=== PATIENT | male | born 1970 | race Caucasian/White ===

== ENCOUNTER 2021-10-21 18:33 | Emergency (ER) | payer OTHER ==
[2021-10-21 19:50] VITALS: TEMP 98.4
[2021-10-21] MEDS ORDERED: ONDANSETRON 4 MG/2 ML VIAL IVP STA (20:24)
[2021-10-21] MEDS ORDERED: SODIUM CHLORIDE 0.9% 1,000 ML IV STA (20:24)
[2021-10-21] MEDS ORDERED: diphenhydrAMINE 50 MG/ML 1 ML VIAL IVP STA (20:27)
--- NOTE | 2021-10-21 23:59 | ED ---
Nausea/Vomiting/Diarrhea HPI - General Chief complaint: Nausea/Vomiting/Diarrhea Stated complaint: Vomiting Time Seen by Provider: 10/21/21 20:23 Source: patient, RN notes reviewed Mode of arrival: EMS Limitations: no limitations - History of Present Illness Initial comments: This is a 51-year-old male who presents to the emergency department for nausea, vomiting, and dehydration. States that he has been at [place] for 5 days. 3 days ago, he started to feel ill. He has felt nauseous and is unable to keep down water. He is in the process of withdrawing from fentanyl, and wonders if this may be a cause. [place] wants to make sure there are no other irregularities contributing to his symptoms. Denies any associated abdominal pain or sick contacts. Denies any fevers, chills, sore throat, cough, dyspnea, chest pain, palpit ations, abdominal pain, diarrhea, back pain, or headaches. MD complaint: nausea, vomiting Onset/Timin -: days(s) Associated Abdominal Pain: No - Related Data Previous Rx's Medication Instructions Recorded Ondansetron Odt [Zofran Odt] 4 mg PO Q8HR PRN #20 tab 10/22/21 Allergies Allergy/AdvReac Type Severity Reaction Status Date / Time sertraline [From Zoloft] AdvReac Rash/Hives Verified 10/21/21 19:50 Review of Systems ROS Statement: Those systems with pertinent positive or pertinent negative responses have been documented in the HPI. ROS Other: All systems not noted in ROS Statement are negative. Past Medical History Past Medical History: No Reported History Past Surgical History: No Surgical Hx Reported Past Psychological History: Anxiety Smoking Status: Current every day smoker Past Alcohol Use History: None Reported Past Drug Use History: Prescription Drug Abuse General Exam Limitations: no limitations General appearance: alert, other (drowsy) Head exam: Present: atraumatic, normocephalic, normal inspection Respiratory exam: Present: normal lung sounds bilaterally. Absent: respiratory distress, wheezes, rales, rhonchi, stridor Cardiovascular Exam: Present: regular rate, normal rhythm, normal heart sounds. Absent: systolic murmur, diastolic murmur, rubs, gallop, clicks Neurological exam: Present: alert, oriented X3, CN II-XII intact Psychiatric exam: Present: normal affect, normal mood Skin exam: Present: warm, dry, intact, normal color. Absent: rash Course Vital Signs 10/21/21 10/22/21 19:47 01:30 Temperature 98.4 F Pulse Rate 94 79 Respiratory 18 20 Rate Blood Pressure 139/87 139/71 O2 Sat by Pulse 98 97 Oximetry Medical Decision Making - Medical Decision Making This is a 51 year old male who presents to the emergency department for nausea and vomiting. Lab work was nonactionable. Nursing staff was unable to establish an IV on the patient due to his dehydration status. He was instead g iven IM Zofran and Benadryl. Patient noted improvement in his nausea and was able to drink water and eat crackers. He did report a headache and was subsequently given Toradol. Patient reports that he feels much better and requests discharge home. Prescription and starter pack for Zofran were pro vided. He was unable to provide a urine sample prior to discharge. Return precautions reviewed in depth, the patient is instructed to return to the emergency department with any new, worsening, or concerning symptoms. Patient verbalized understanding. This case was discussed in detail with the attending ED physician. Presentation, findings, and treatment plan discussed in detail as well. - Lab Data Result diagrams: 10/22/21 01:00 10/21/21 00:37 Lab Results 10/21/21 10/22/21 Range/Units 00:37 01:00 WBC 5.0 (3.8-10.6) k/uL RBC 4.46 (4.30-5.90) m/uL Hgb 13.6 (13.0-17.5) gm/dL Hct 41.2 (39.0-53.0) % MCV 92.5 (80.0-100.0) fL MCH 30.4 (25.0-35.0) pg MCHC 32.9 (31.0-37.0) g/dL RDW 14.1 (11.5-15.5) % Plt Count 247 (150-450) k/uL MPV 7.9 Neutrophils % 63 % Lymphocytes % 27 % Monocytes % 7 % Eosinophils % 2 % Basophils % 1 % Neutrophils # 3.2 (1.3-7.7) k/uL Lymphocytes # 1.3 (1.0-4.8) k/uL Monocytes # 0.3 (0-1.0) k/uL Eosinophils # 0.1 (0-0.7) k/uL Basophils # 0.0 (0-0.2) k/uL Sodium 138 (137-145) mmol/L Potassium 4.3 (3.5-5.1) mmol/L Chloride 98 (98-107) mmol/L Carbon Dioxide 31 H (22-30) mmol/L Anion Gap 9 mmol/L BUN 12 (9-20) mg/dL Creatinine 0.93 (0.66-1.25) mg/dL Est GFR (CKD-EPI)AfAm >90 (>60 ml/min/1.73 sqM) Est GFR (CKD-EPI)NonAf >90 (>60 ml/min/1.73 sqM) Glucose 101 H (74-99) mg/dL Calcium 9.9 (8.4-10.2) mg/dL Total Bilirubin 0.3 (0.2-1.3) mg/dL AST 34 (17-59) U/L ALT 14 (4-49) U/L Alkaline Phosphatase 59 (38-126) U/L Total Protein 7.2 (6.3-8.2) g/dL Albumin 4.4 (3.5-5.0) g/dL Amylase 90 (30-110) U/L Lipase 69 (23-300) U/L Disposition Clinical Impression: Nausea and vomiting, Dehydration Disposition: HOME SELF-CARE Instructions (If sedation given, give patient instructions): Acute Nausea and Vomiting (ED) Additional Instructions: Return to the emergency department with any new, worsening, or concerning symptoms. The Zofran can be taken up to every 8 hours as needed for nausea and vomiting. Make sure that you remain well-hydrated. Slowly advance your diet as tolerated. Prescriptions: Ondansetron Odt [Zofran Odt] 4 mg PO Q8HR PRN #20 tab PRN Reason: Nausea And Vomiting Is patient prescribed a controlled substance at d/c from ED?: No Referrals: Fabian Ortiz MD [Primary Care Provider] - 1-2 days
[2021-10-22 01:15] LABS: Basophils % (A) 1 %; Eosinophils # (A) 0.1 k/uL (0-0.7); Eosinophils % (A) 2 %; HCT 41.2 % (39.0-53.0); HGB 13.6 gm/dL (13.0-17.5); Lymphocytes # (A) 1.3 k/uL (1.0-4.8); Lymphocytes % (A) 27 %; MCH 30.4 pg (25.0-35.0); MCHC 32.9 g/dL (31.0-37.0); MCV 92.5 fL (80.0-100.0); Mean Platelet Volume 7.9; Monocytes # (A) 0.3 k/uL (0-1.0); Monocytes % (A) 7 %; Neutrophils # (A) 3.2 k/uL (1.3-7.7); Neutrophils % (A) 63 %; Platelet Count 247 k/uL (150-450); RBC 4.46 m/uL (4.30-5.90); RDW 14.1 % (11.5-15.5)
[2021-10-22 01:31] LABS: ALT 14 U/L (4-49); AST 34 U/L (17-59); African American GFR (CKD) >90 (>60 ml/min/1.73 sqM); Albumin 4.4 g/dL (3.5-5.0); Alkaline Phosphatase 59 U/L (38-126); Amylase 90 U/L (30-110); Anion Gap 9 mmol/L; Blood Urea Nitrogen 12 mg/dL (9-20); Calcium 9.9 mg/dL (8.4-10.2); Carbon Dioxide 31 mmol/L (22-30); Chloride 98 mmol/L (98-107); Glucose 101 mg/dL (74-99); Lipase 69 U/L (23-300); Non-African American GFR(CKD) >90 (>60 ml/min/1.73 sqM); Potassium 4.3 mmol/L (3.5-5.1); Sodium 138 mmol/L (137-145); Total Bilirubin 0.3 mg/dL (0.2-1.3); Total Protein 7.2 g/dL (6.3-8.2)
[2021-10-22] MEDS ORDERED: KETOROLAC 15 MG/ML 1 ML VIAL IM STA (01:37)
[2021-10-22] MEDS ORDERED: ONDANSETRON 4 MG ODT STARTER PACK 2 TAB BTL PO STA (01:42)
[2021-10-22 02:00] VITALS: BP 139/71; PULSE 79; RESP 20
== END 2021-10-22 02:45 | disposition home or self-care (01) ==
LOC: EC 18:33
DX: E86.0 Dehydration (principal); R11.2 Nausea with vomiting, unspecified; F17.200 Nicotine dependence, unspecified, uncomplicated; Z88.2 Allergy status to sulfonamides
CPT/HCPCS: 36415; 80053; 82150; 83690; 85025; 96372; 96374; 96375; 99284

== ENCOUNTER 2023-04-14 20:17 | Emergency (ER) | payer OTHER ==
[2023-04-14 20:33] VITALS: RESP 18; TEMP 98.4
[2023-04-14] MEDS: KETOROLAC 15 MG/ML 1 ML VIAL IM STA (20:48)
--- NOTE | 2023-04-14 20:49 | ED ---
Extremity Problem HPI - General Chief complaint: Extremity Problem,Nontraumatic Stated complaint: hand pain,swelling Time Seen by Provider: 04/14/23 20:44 Source: patient, RN notes reviewed Mode of arrival: ambulatory Limitations: no limitations - History of Present Illness Initial comments: Patient is a 53-year-old male presented to ER with a chief complaint of right hand pain. Patient states he has been going on for a month and is extremely painful to move. He states that his right third finger is swollen. He has been limiting range of motion due to pain. He has been taking [id number] ibuprofen with mild relief of pain. Denies any history of gout, paresthesias, injury. - Related Data Previous Rx's Medication Instructions Recorded Ondansetron Odt [Zofran Odt] 4 mg PO Q8HR PRN #20 tab 10/22/21 Ketorolac [Toradol] 10 mg PO Q8HR #15 tab 04/14/23 Allergies Allergy/AdvReac Type Severity Reaction Status Date / Time sertraline [From Zoloft] AdvReac Rash/Hives Verified 04/14/23 20:28 Review of Systems ROS Statement: Those systems with pertinent positive or pertinent negative responses have been documented in the HPI. ROS Other: All systems not noted in ROS Statement are negative. Past Medical History Past Medical History: No Reported History Additional Past Medical History / Comment(s): Lyme History of Any Multi-Drug Resistant Organisms: None Reported Past Surgical History: No Surgical Hx Reported Past Psychological History: Anxiety Smoking Status: Current every day smoker Past Alcohol Use History: None Reported Past Drug Use History: Prescription Drug Abuse General Exam Limitations: no limitations General appearance: alert, in no apparent distress Head exam: Present: atraumatic, normocephalic, normal inspection Respiratory exam: Present: normal lung sounds bilaterally. Absent: respiratory distress, wheezes, rales, rhonchi, stridor Cardiovascular Exam: Present: regular rate, normal rhythm, normal heart sounds. Absent: systolic murmur, diastolic murmur, rubs, gallop, clicks Extremities exam: Present: other (Right third digit mildly erythematous with joint tenderness to third MCP joint. Pain elicited with extension of finger. 2+ right radial pulse.) Neurological exam: Present: alert, oriented X3, CN II-XII intact Psychiatric exam: Present: normal affect, normal mood Skin exam: Present: warm, dry, intact, normal color. Absent: rash Course Vital Signs 04/14/23 20:25 Temperature 98.4 F Pulse Rate 88 Respiratory 18 Rate Blood Pressure 151/92 O2 Sat by Pulse 100 Oximetry Medical Decision Making - Medical Decision Making Was pt. sent in by a medical professional or institution (, [facility], COMMUNITY SERVICE TECHNICIAN, urgent care, hospital, or care home...) When possible be specific @ -No Did you speak to anyone other than the patient for history (EMS, parent, family, police, friend...)? What history was obtained from this source @ -No Did you review nursing and triage notes (agree or disagree)? Why? @ -I reviewed and agree with nursing and triage notes Were old charts reviewed (outside hosp., previous admission, EMS record, old EKG, old radiological studies, urgent care reports/EKG's, care home records)? Report findings @ -No old charts were reviewed Differential Diagnosis (chest pain, altered mental status, abdominal pain women, abdominal pain men, vaginal bleeding, weakness, fever, dyspnea, syncope, headache, dizziness, GI bleed, back pain, seizure, CVA, palpatations, mental health, musculoskeletal)? @ -Differential Musculoskeletal Muscular strain, contusion, ligament sprain, fracture, arthritis, septic arthritis, bursitis, cellulitis, muscle spasm, nerve compression, DVT, arterial occlusion, herpes zoster, electrolyte abnormality, tumor.... This is not meant to be in all inclusive list EKG interpreted by me (3pts min.). @ -None X-rays interpreted by me (1pt min.). @ -Right hand x-ray interpreted by me shows no acute process. CT interpreted by me (1pt min.). @ -None done U/S interpreted by me (1pt. min.). @ -None done What testing was considered but not performed or refused? (CT, X-rays, U/S, labs)? Why? @ -None What meds were considered but not given or refused? Why? @ -None Did you discuss the management of the patient with other professionals (pr ofessionals i.e. ARIA Jones, COMMUNITY SERVICE TECHNICIAN, lab, RT, psych nurse, director social welfare, facilities supervisor, teacher, school resource officer, case hardener)? Give summary @ -No Was smoking cessation discussed for >3mins.? @ -No Was critical care preformed (if so, how long)? @ -No Were there social determinants of health that impacted care today? How? (Homelessness, low income, unemployed, alcoholism, drug addiction, transportation, low edu. Level, literacy, decrease access to med. care, [facility] [facility], rehab)? @ -Patient recently released from psychiatric unit. Was there de-escalation of care discussed even if they declined (Discuss DNR or withdrawal of care, Hospice)? DNR status @ -No What co-morbidities impacted this encounter? (DM, HTN, Smoking, COPD, CAD, Cancer, CVA, ARF, Chemo, Hep., AIDS, mental health diagnosis, sleep apnea, mor bid obesity)? @ -None Was patient admitted / discharged? Hospital course, mention meds given and route, prescriptions, significant lab abnormalities, going to OR and other pertinent info. @ -Discharge. Patient is a 53-year-old male presented to ER with a chief complaint of right hand pain. History and physical exam completed. Vitals stable. Patient no signs of acute distress. Right upper extremity neurovascular intact. Full active range of motion. Denies any injuries or trauma. X-rays obtained negative for acute process. Patient received IM Toradol for pain control in the ER. Results discussed with patient, all questions answered. Advised him to follow-up with orthopedics. Referral given. Patient prescribed p.o. Toradol. Return parameters were discussed. Patient be discharged stable condition with follow-up to orthopedics. Patient expressed understanding and agreement with care plan. Undiagnosed new problem with uncertain prognosis? @ -No Drug Therapy requiring intensive monitoring for toxicity (Heparin, Nitro, Insulin, Cardizem)? @ -No Were any procedures done? @ -No Diagnosis/symptom? @ -Right hand pain Acute, or Chronic, or Acute on Chronic? @ -Acute Uncomplicated (without systemic symptoms) or Complicated (systemic symptoms)? @ -Uncomplicated Side effects of treatment? @ -No Exacerbation, Progression, or Severe Exacerbation? @ -No Poses a threat to life or bodily function? How? (Chest pain, [place], [place], pneumonia, PE, COPD, DKA, ARF, appy, cholecystitis, CVA, Diverticulitis, Homicidal, Suicidal, threat to staff... and all critical care pts) @ -No - Radiology Data Radiology results: report reviewed, image reviewed Disposition Clinical Impression: Right hand pain Disposition: HOME SELF-CARE Condition: Stable Additional Instructions: Please follow-up with orthopedics in the next 1 to 2 days. Return to the ER for any new or worsening symptoms. Prescriptions: Ketorolac [Toradol] 10 mg PO Q8HR #15 tab Is patient prescribed a controlled substance at d/c from ED?: No Referrals: None,Stated [Primary Care Provider] - 1-2 days Sarwat Durant DO [Doctor of Osteopathic Medicine] - 1-2 days Time of Disposition: 21:16
--- NOTE | 2023-04-14 21:15 | XR ---
EXAMINATION TYPE: XR hand complete RT DATE OF EXAM: 04/14/2023 8:55 PM CLINICAL INDICATION:Male, 53 years old with history of third digit pain; [facility] COMPARISON: None TECHNIQUE: XR hand complete RT Frontal, lateral and oblique views were obtained. FINDINGS: Normal alignment of the visualized joints. No acute osseous pathology is identified. No e vidence of soft tissue swelling. IMPRESSION: No acute osseous pathology.
[2023-04-14 22:03] VITALS: BP 131/80; PULSE 75
== END 2023-04-14 21:26 | disposition home or self-care (01) ==
LOC: EC 20:17
DX: M79.641 Pain in right hand (principal); F17.200 Nicotine dependence, unspecified, uncomplicated; Z88.8 Allergy status to other drugs, medicaments and biological substances; Z86.59 Personal history of other mental and behavioral disorders
CPT/HCPCS: 73130; 99283; 96372; J1885

== ENCOUNTER 2023-04-28 08:58 | Emergency (ER) | payer OTHER ==
--- NOTE | 2023-04-28 09:09 | ED ---
Lower Extremity Injury HPI - General Chief Complaint: Extremity Injury, Lower Stated Complaint: Knee Pain Time Seen by Provider: 04/28/23 09:08 Source: patient, RN notes reviewed Mode of arrival: wheelchair Limitations: no limitations - History of Present Illness Initial Comments: 53-year-old male to ED with chief complaint of right knee pain. Patient states that his right knee has been bothering him over the last 3 to 4 days, but states this morning he was outside at work where he stepped on a curb and felt a "popping sensation". Denies numbness, tingling, trauma to the knee. Patient denies previous surgical history on knee. Has taken Motrin at home over the last few days, last dose yesterday evening. Patient denies overlying redness to the affected knee. - Related Data Previous Rx's Medication Instructions Recorded Ondansetron Odt [Zofran Odt] 4 mg PO Q8HR PRN #20 tab 10/22/21 Ketorolac [Toradol] 10 mg PO Q8HR #15 tab 04/14/23 Allergies Allergy/AdvReac Type Severity Reaction Status Date / Time sertraline [From Zoloft] AdvReac Rash/Hives Verified 04/28/23 09:06 Review of Systems ROS Statement: Those systems with pertinent positive or pertinent negative responses have been documented in the HPI. ROS Other: All systems not noted in ROS Statement are negative. Past Medical History Past Medical History: No Reported History Additional Past Medical History / Comment(s): Lyme History of Any Multi-Drug Resistant Organisms: None Reported Past Surgical History: No Surgical Hx Reported Past Psychological History: Anxiety Smoking Status: Current every day smoker, [place] Past Alcohol Use History: None Reported Past Drug Use History: Prescription Drug Abuse General Exam Limitations: no limitations General appearance: alert, in no apparent distress Head exam: Present: atraumatic, normocephalic, normal inspection Eye exam: Present: normal appearance, PERRL, EOMI. Absent: scleral icterus, conjunctival injection, periorbital swelling ENT exam: Present: normal exam, mucous membranes moist Neck exam: Present: normal inspection. Absent: tenderness, meningismus, lymphadenopathy Respiratory exam: Present: normal lung sounds bilaterally. Absent: respiratory distress, wheezes, rales, rhonchi, stridor Cardiovascular Exam: Present: regular rate, normal rhythm, normal heart sounds. Absent: systolic murmur, diastolic murmur, rubs, gallop, clicks GI/Abdominal exam: Present: soft, normal bowel sounds. Absent: distended, tenderness, guarding, rebound, rigid Extremities exam: Present: tenderness (medial and lateral right knee) Right Hip exam: Present: normal inspection Upper Leg exam: Present: normal inspection, full ROM Knee exam: Present: full ROM (pain with knee extension), tenderness, swelling, ecchymosis, crepitus, effusion, pain/laxity with valgus, pain/laxity with varus. Absent: abrasion, laceration, erythema, posterior draw sign Neurovascular tendon exam: Present: no vascular compromise. Absent: pulse deficit, abnormal cap refill, motor deficit, sensory deficit Back exam: Present: normal inspection Neurological exam: Present: alert, oriented X3, CN II-XII intact Psychiatric exam: Present: normal affect, normal mood Skin exam: Present: warm, dry, intact, normal color. Absent: rash Course Vital Signs 04/28/23 09:03 Temperature 97.9 F Pulse Rate 84 Respiratory 18 Rate Blood Pressure 129/69 O2 Sat by Pulse 98 Oximetry Procedures - Orthopedic Splinting/Casting Injury #1 Side: right Lower Extremity Injury Location: knee Lower Extremity Immobilizer: knee immobilizer Medical Decision Making - Medical Decision Making Was pt. sent in by a medical professional or institution (ARIA Jones, B2B OUTSIDE SALES REPRESENTATIVE, urgent care, hospital, or usp...) When possible be specific @ -No Did you speak to anyone other than the patient for history (EMS, parent, family, police, friend...)? What history was obtained from this source @ -No Did you review nursing and triage notes (agree or disagree)? Why? @ -I reviewed and agree with nursing and triage notes Were old charts reviewed (outside hosp., previous admission, EMS record, old EKG, old radiological studies, urgent care reports/EKG's, usp records)? Report findings @ -No old charts were reviewed Differential Diagnosis (chest pain, altered mental status, abdominal pain women, abdominal pain men, vaginal bleeding, weakness, fever, dyspnea, syncope, headache, dizziness, GI bleed, back pain, seizure, CVA, palpatations, mental health, musculoskeletal)? @ -Differential Musculoskeletal Muscular strain, contusion, ligament sprain, fracture, arthritis, septic arthritis, bursitis, cellulitis, muscle spasm, nerve compression, DVT, arterial occlusion, herpes zoster, electrolyte abnormality, tumor.... This is not meant to be in all inclusive list EKG interpreted by me (3pts min.). @ -None X-rays interpreted by me (1pt min.). @ -X-ray of right knee reveals anterior soft tissue swelling with no acute osseous abnormality seen. CT interpreted by me (1pt min.). @ -None done U/S interpreted by me (1pt. min.). @ -None done What testing was considered but not performed or refused? (CT, X-rays, U/S, labs)? Why? @ -None What meds were considered but not given or refused? Why? @ -None Did you discuss the management of the patient with other professionals (professionals i.e. , PA, B2B OUTSIDE SALES REPRESENTATIVE, lab, RT, psych nurse, social media marketing analyst, city planning teacher, teacher, ict help desk officer, rn case mgr)? Give summary @ -No Was smoking cessation discussed for >3mins.? @ -No Was critical care preformed (if so, how long)? @ -No Were there social determinants of health that impacted care today? How? (Homelessness, low income, unemployed, alcoholism, drug addiction, transportation, low edu. Level, literacy, decrease access to med. care, senior care, rehab)? @ -No Was there de-escalation of care discussed even if they declined (Discuss DNR or withdrawal of care, Hospice)? DNR status @ -No What co-morbidities impacted this encounter? (DM, HTN, Smoking, COPD, CAD, Cancer, CVA, ARF, Chemo, Hep., AIDS, mental health diagnosis, sleep apnea, morbid obesity)? @ -None Was patient admitted / discharged? Hospital course, mention meds given and route, prescriptions, significant lab abnormalities, going to OR and other pertinent info. @ -Discharged. 53-year-old male presents to Emergency Department with a chief c omplaint of right knee pain. Patient's pain has improved since administration of IM Toradol. Right knee x-ray reveals no acute osseous abnormality, soft tissue swelling. Patient placed in knee immobilizer given orthopedic referral for further evaluation. Continue with symptomatic treatment at home cycling Tylenol Motrin, elevate affected knee, rest, ice. Undiagnosed new problem with uncertain prognosis? @ -No Drug Therapy requiring intensive monitoring for toxicity (Heparin, Nitro, Insulin, Cardizem)? @ -No Were any procedures done? @ -No Diagnosis/symptom? @ -Knee sprain Acute, or Chronic, or Acute on Chronic? @ -Acute Uncomplicated (without systemic symptoms) or Complicated (systemic symptoms)? @ -Uncomplicated Side effects of treatment? @ -No Exacerbation, Progression, or Severe Exacerbation? @ -No Poses a threat to life or bodily function? How? (Chest pain, [place], [place], pneumonia, PE, COPD, DKA, ARF, appy, cholecystitis, CVA, Diverticulitis, Homicidal, Suicidal, threat to staff... and all critical care pts) @ -No Disposition Clinical Impression: Knee sprain Narrative: Please return to the Emergency Department if symptoms worsen or any other concerns. Advice patient to schedule follow-up appointment with orthopedics on Sunday. Disposition: HOME SELF-CARE Condition: Good Instructions (If sedation given, give patient instructions): Knee Sprain (ED) Is patient prescribed a controlled substance at d/c from ED?: No Referrals: None,Stated [Primary Care Provider] - 1-2 days Julián Arredondo DO [Doctor of Osteopathic Medicine] - 1-2 days Time of Disposition: 10:15
[2023-04-28 09:10] VITALS: BP 129/69; PULSE 84; RESP 18; TEMP 97.9
[2023-04-28] MEDS: KETOROLAC 15 MG/ML 1 ML VIAL IM STA (09:21)
--- NOTE | 2023-04-28 09:51 | XR ---
EXAMINATION TYPE: XR knee complete RT DATE OF EXAM: 04/28/2023 COMPARISON: NONE HISTORY: 53-year-old male swelling and pain after twisting injury TECHNIQUE: 3 views FINDINGS: Mild anterior soft tissue swelling. No sizable joint effusion is seen. No acute fracture, s ubluxation, dislocation. IMPRESSION: Anterior soft tissue swelling. No acute osseous abnormality seen. If symptoms persist, consider MRI.
== END 2023-04-28 10:17 | disposition home or self-care (01) ==
LOC: EC 08:58
DX: S83.91XA Sprain of unspecified site of right knee, initial encounter (principal); F17.290 Nicotine dependence, other tobacco product, uncomplicated; F19.10 Other psychoactive substance abuse, uncomplicated; Z88.8 Allergy status to other drugs, medicaments and biological substances; X50.1XXA Overexertion from prolonged static or awkward postures, initial encounter; Y99.0 Civilian activity done for income or pay
CPT/HCPCS: 73562; 99283; 96372; L1830; J1885

== ENCOUNTER 2023-05-05 21:15 | Emergency (ER) | payer OTHER ==
[2023-05-05 21:39] VITALS: BP 140/90; PULSE 101; RESP 18; TEMP 98.2
--- NOTE | 2023-05-05 21:52 | US ---
EXAMINATION TYPE: US venous doppler duplex LE RT DATE OF EXAM: 05/05/2023 9:48 PM COMPARISON: NONE CLINICAL INDICATION: Male, 53 years old with history of swelling, calf pain; right calf edema SIDE PERFORMED: right TECHNIQUE: The lower extremity deep venous system is examined utilizing real time linear array sonog elver with graded compression, doppler sonography and color-flow sonography. VESSELS IMAGED: Common Femoral Vein Deep Femoral Vein Greater Saphenous Vein * Femoral Vein Popliteal Vein Small Saphenous Vein * Proximal Calf Veins (* superficial vessels) Right Leg: No evidence of DVT IMPRESSION: Grayscale, color doppler, spectral doppler imaging performed of the deep veins of the lo wer extremities. There is normal flow, compressibility, vascular waveforms.
--- NOTE | 2023-05-05 22:21 | ED ---
Lower Extremity Injury HPI - General Chief Complaint: Extremity Injury, Lower Stated Complaint: Right calf swelling Time Seen by Provider: 05/05/23 21:21 Source: patient Mode of arrival: ambulatory Limitations: no limitations - History of Present Illness Initial Comments: 53-year-old male presenting with chief complaint of right-sided calf pain and swelling. Patient was here on 04/27 with knee pain, he had x-rays which were negative. He was instructed to follow-up with orthopedics. He states orthopedics did not take his insurance but he did follow-up with his PCP and is currently wearing a flexible knee brace. He states that he has been having some swelling and pain in the calf to the right lower extremity. No chest pain or difficulty breathing. No new injury or trauma. No numbness or tingling. - Related Data Previous Rx's Medication Instructions Recorded Ondansetron Odt [Zofran Odt] 4 mg PO Q8HR PRN #20 tab 10/22/21 Ketorolac [Toradol] 10 mg PO Q8HR #15 tab 04/14/23 Allergies Allergy/AdvReac Type Severity Reaction Status Date / Time sertraline [From Zoloft] AdvReac Rash/Hives Verified 04/28/23 09:06 Review of Systems ROS Statement: Those systems with pertinent positive or pertinent negative responses have been documented in the HPI. ROS Other: All systems not noted in ROS Statement are negative. Past Medical History Past Medical History: No Reported History Additional Past Medical History / Comment(s): Lyme History of Any Multi-Drug Resistant Organisms: None Reported Past Surgical History: No Surgical Hx Reported Past Psychological History: Anxiety Smoking Status: Current every day smoker, Vaper Past Alcohol Use History: None Reported Past Drug Use History: Prescription Drug Abuse General Exam Limitations: no limitations General appearance: alert, in no apparent distress Head exam: Present: atraumatic, normocephalic Eye exam: Present: normal appearance Neck exam: Present: normal inspection Respiratory exam: Absent: respiratory distress Right Lower Leg exam: Present: tenderness, swelling. Absent: erythema Neurological exam: Present: alert, oriented X3 Psychiatric exam: Present: normal affect, normal mood Skin exam: Present: warm, dry Course Vital Signs 05/05/23 21:16 Temperature 98.2 F Pulse Rate 101 H Respiratory 18 Rate Blood Pressure 140/90 O2 Sat by Pulse 100 Oximetry Medical Decision Making - Medical Decision Making Was pt. sent in by a medical professional or institution (, PA, CARDIOVASCULAR SURGICAL TECH, urgent care, hospital, or detention...) When possible be specific @ -No Did you speak to anyone other than the patient for history (EMS, parent, family, police, friend...)? What history was obtained from this source @ -No Did you review nursing and triage notes (agree or disagree)? Why? @ -I reviewed and agree with nursing and triage notes Were old charts reviewed (outside hosp., previous admission, EMS record, old EKG, old radiological studies, urgent care reports/EKG's, detention records)? Report findings @ -No old charts were reviewed Differential Diagnosis (chest pain, altered mental status, abdominal pain women, abdominal pain men, vaginal bleeding, weakness, fever, dyspnea, syncope, headache, dizziness, GI bleed, back pain, seizure, CVA, palpatations, mental health, musculoskeletal)? @ -Differential Musculoskeletal Muscular strain, contusion, ligament sprain, fracture, arthritis, septic arthritis, bursitis, cellulitis, muscle spasm, nerve compression, DVT, arterial occlusion, herpes zoster, electrolyte abnormality, tumor.... This is not meant to be in all inclusive list EKG interpreted by me (3pts min.). @ -As above X-rays interpreted by me (1pt min.). @ -None done CT interpreted by me (1pt min.). @ -None done U/S interpreted by me (1pt. min.). @ -Ultrasound is negative for DVT What testing was considered but not performed or refused? (CT, X-rays, U/S, labs)? Why? @ -None What meds were considered but not given or refused? Why? @ -None Did you discuss the management of the patient with other professionals (professionals i.e. , PA, CARDIOVASCULAR SURGICAL TECH, lab, RT, psych nurse, manager social media, divorce lawyer, teacher, chief accounting officer, case folder)? Give summary @ -No Was smoking cessation discussed for >3mins.? @ -No Was critical care preformed (if so, how long)? @ -No Were there social determinants of health that impacted care today? How? (Homelessness, low income, unemployed, alcoholism, drug addiction, transportati on, low edu. Level, literacy, decrease access to med. care, [facility], rehab)? @ -No Was there de-escalation of care discussed even if they declined (Discuss DNR or withdrawal of care, Hospice)? DNR status @ -No What co-morbidities impacted this encounter? (DM, HTN, Smoking, COPD, CAD, Cancer, CVA, ARF, Chemo, Hep., AIDS, mental health diagnosis, sleep apnea, morbid obesity)? @ -None Was patient admitted / discharged? Hospital course, mention meds given and route, prescriptions, significant lab abnormalities, going to OR and other pertinent info. @ -53-year-old male presenting with chief complaint of right lower leg swelling and pain. He recently injured his knee and has been wearing a Velcro knee brace. On exam I noticed when the patient removed his knee brace that he does appear to be tightening it quite a bit at the level of the lower leg. He is neurovascularly intact. Ultrasound was obtained which is negative for DVT. I suspect that the patient is having swelling due to his Velcro knee brace. I educated him on today's findings and on supportive management at home. Provided him with orthopedic follow-up for his knee pain. Discharged home. Follow-up with PCP. Report back to ER with any new or worsening symptoms. Discussed return parameters and answered all questions. Patient conveyed verbal understanding and agreed to the plan. I discussed this case in detail with my attending Dr. Rosenbaum Undiagnosed new problem with uncertain prognosis? @ -No Drug Therapy requiring intensive monitoring for toxicity (Heparin, Nitro, Insulin, Cardizem)? @ -No Were any procedures done? @ -No Diagnosis/symptom? @ -Lower extremity swelling Acute, or Chronic, or Acute on Chronic? @ -Acute Uncomplicated (without systemic symptoms) or Complicated (systemic symptoms)? @ -Uncomplicated Side effects of treatment? @ -No Exacerbation, Progression, or Severe Exacerbation? @ -No Poses a threat to life or bodily function? How? (Chest pain, [place], [place], pneumonia, PE, COPD, DKA, ARF, appy, cholecystitis, CVA, Diverticulitis, Homicidal, Suicidal, threat to staff... and all critical care pts) @ -No Disposition Clinical Impression: Leg swelling Disposition: HOME SELF-CARE Condition: Good Instructions (If sedation given, give patient instructions): Leg Edema (ED), Knee Pain (ED) Additional Instructions: Follow-up with PCP and orthopedics. Report back to ER with any new or worsening symptoms. Alternate Motrin and Tylenol as needed for pain control. Elevate the leg to help reduce swelling. You may wear compression stockings as needed. Is patient prescribed a controlled substance at d/c from ED?: No Referrals: Caden Villafuerte MD [Primary Care Provider] - 1-2 days Jun Hurt DO [Doctor of Osteopathic Medicine] - 1-2 days Rose Mary Reyna DO [Doctor of Osteopathic Medicine] - 1-2 days Time of Disposition: 22:20
== END 2023-05-05 22:27 | disposition home or self-care (01) ==
LOC: EC 21:15
DX: M79.604 Pain in right leg (principal); F17.290 Nicotine dependence, other tobacco product, uncomplicated; Z88.8 Allergy status to other drugs, medicaments and biological substances; Z86.59 Personal history of other mental and behavioral disorders
CPT/HCPCS: 99283

== ENCOUNTER 2023-06-06 11:34 | Emergency (ER) | payer OTHER ==
[2023-06-06] MEDS: BACITRACIN OINT 1 EACH PACKET TOPICAL ONE (12:31)
--- NOTE | 2023-06-06 12:38 | ED ---
Recheck HPI - General Chief Complaint: Recheck/Abnormal Lab/Rx Stated Complaint: R Leg Injury Time Seen by Provider: 06/06/23 11:54 Source: patient, RN notes reviewed Mode of arrival: ambulatory Limitations: no limitations - History of Present Illness Initial Comments: 53-year-old male presenting to the ER with a chief complaint of right knee pain. Patient reports he is scheduled for an MRI on 06-08-2023, evaluation of meniscal injury. He reports he has been wearing a brace that has been too big. He states at work today he was having extreme posterior knee pain as the brace was rubbing against his skin. He states it is "bleeding". Denies any paresthesias or weakness. No other complaints at this time. - Related Data Previous Rx's Medication Instructions Recorded Ondansetron Odt [Zofran Odt] 4 mg PO Q8HR PRN #20 tab 10/22/21 Ketorolac [Toradol] 10 mg PO Q8HR #15 tab 04/14/23 Allergies Allergy/AdvReac Type Severity Reaction Status Date / Time sertraline [From Zoloft] AdvReac Rash/Hives Verified 06/06/23 12:31 Review of Systems ROS Statement: Those systems with pertinent positive or pertinent negative responses have been documented in the HPI. ROS Other: All systems not noted in ROS Statement are negative. Past Medical History Past Medical History: No Reported History Additional Past Medical History / Comment(s): Lyme, cellulitis History of Any Multi-Drug Resistant Organisms: None Reported Past Surgical History: No Surgical Hx Reported, Back Surgery Additional Past Surgical History / Comment(s): Right leg phlebectomy. Back abscess and surgery with 6 bolts, 2 titanium cages, and 2 plastic discs in 2019 Past Psychological History: Anxiety, Depression Smoking Status: Current every day smoker, Vaper Past Alcohol Use History: None Reported Past Drug Use History: Prescription Drug Abuse General Exam General appearance: alert, in no apparent distress Head exam: Present: atraumatic, normocephalic, normal inspection Respiratory exam: Present: normal lung sounds bilaterally. Absent: respiratory distress, wheezes, rales, rhonchi, stridor Cardiovascular Exam: Present: regular rate, normal rhythm, normal heart sounds. Absent: systolic murmur, diastolic murmur, rubs, gallop, clicks Extremities exam: Present: tenderness (Right knee PD. 2+ right dorsalis pedis pulse. Sensation intact. Patient has minor abrasion and ecchymosis to posterior right knee. No active bleeding.) Psychiatric exam: Present: normal affect, normal mood Course Vital Signs 06/06/23 12:25 Temperature 98.1 F Pulse Rate 83 Respiratory 18 Rate Blood Pressure 134/87 O2 Sat by Pulse 98 Oximetry Medical Decision Making - Medical Decision Making Was pt. sent in by a medical professional or institution (, [facility], MAKEUP ARTISTRY INSTRUCTOR, urgent care, hospital, or correction...) When possible be specific @ -No Did you speak to anyone other than the patient for history (EMS, parent, family, police, friend...)? What history was obtained from this source @ -No Did you review nursing and triage notes (agree or disagree)? Why? @ -I reviewed and agree with nursing and triage notes Were old charts reviewed (outside hosp., previous admission, EMS record, old EKG, old radiological studies, urgent care reports/EKG's, correction records)? Report findings @ -No old charts were reviewed Differential Diagnosis (chest pain, altered mental status, abdominal pain women, abdominal pain men, vaginal bleeding, weakness, fever, dyspnea, syncope, headache, dizziness, GI bleed, back pain, seizure, CVA, palpatations, mental health, musculoskeletal)? @ -Differential Musculoskeletal: Muscular strain, contusion, ligament sprain, fracture, arthritis, septic arthritis, bursitis, cellulitis, muscle spasm, nerve compression, DVT, arterial occlusion, herpes zoster, electrolyte abnormality, tumor.... This is not meant to be in all inclusive list EKG interpreted by me (3pts min.). @ -None X-rays interpreted by me (1pt min.). @ -None done CT interpreted by me (1pt min.). @ -None done U/S interpreted by me (1pt. min.). @ -None done What testing was considered but not performed or refused? (CT, X-rays, U/S, labs)? Why? @ -None What meds were considered but not given or refused? Why? @ -None Did you discuss the management of the patient with other professionals (professionals i.e. , ARIA, MAKEUP ARTISTRY INSTRUCTOR, lab, RT, psych nurse, drug abuse social worker, test engine mechanic, teacher, artillery officer, family independence case manager)? Give summary @ -No Was smoking cessation discussed for >3mins.? @ -I discussed smoking cessation for greater than 3 minutes. The risk of smoking were discussed with the patient including but not limited to risks of cancer, stroke, coronary artery disease and COPD. Also discussed with patient w ere multiple methods of quitting smoking. Lastly we discussed the financial cost of smoking. Was critical care preformed (if so, how long)? @ -No Were there social determinants of health that impacted care today? How? (Homelessness, low income, unemployed, alcoholism, drug addiction, transportation, low edu. Level, literacy, decrease access to med. care, retirement, rehab)? @ -No Was there de-escalation of care discussed even if they declined (Discuss DNR or withdrawal of care, Hospice)? DNR status @ -No What co-morbidities impacted this encounter? (DM, HTN, Smoking, COPD, CAD, Cancer, CVA, ARF, Chemo, Hep., AIDS, mental health diagnosis, sleep apnea, morbid obesity)? @ -None Was patient admitted / discharged? Hospital course, mention meds given and route, prescriptions, significant lab abnormalities, going to OR and other pertinent info. @ -Discharged. 53-year-old male presenting to the ER with chief complaint of right posterior knee pain. History and physical exam completed. Vitals stable. Patient in no signs of acute distress and nontoxic-appearing. Right lower extremity neurovascular intact. Minor abrasion and contusion to posterior right knee. Bacitracin placed over abrasion and stockinette given. I advised follow- up on Sunday as scheduled with orthopedics. Return parameters discussed. Patient discharged in stable condition with follow-up to orthopedics. Patient verbally expressed understanding and agreement with care plan. Case discussed with ED attending, Dr. Scanlon. Undiagnosed new problem with uncertain prognosis? @ -No Drug Therapy requiring intensive monitoring for toxicity (Heparin, Nitro, Insulin, Cardizem)? @ -No Were any procedures done? @ -No Diagnosis/symptom? @ -Abrasion/contusion Acute, or Chronic, or Acute on Chronic? @ -Acute Uncomplicated (without systemic symptoms) or Complicated (systemic symptoms)? @ -Uncomplicated Side effects of treatment? @ -No Exacerbation, Progression, or Severe Exacerbation? @ -No Poses a threat to life or bodily function? How? (Chest pain, [place], [place], pneumonia, PE, COPD, DKA, ARF, appy, cholecystitis, CVA, Diverticulitis, Homicidal, Suicidal, threat to staff... and all critical care pts) @ -No Disposition Clinical Impression: Contusion, Abrasion Disposition: HOME SELF-CARE Condition: Stable Additional Instructions: Follow-up with orthopedics as scheduled. Return to the ER for any new or worsening concerns. Is patient prescribed a controlled substance at d/c from ED?: No Referrals: Caden Villafuerte MD [Primary Care Provider] - 1-2 days Time of Disposition: 12:37
[2023-06-06 12:44] VITALS: BP 134/87; PULSE 83; RESP 18; TEMP 98.1
== END 2023-06-06 12:57 | disposition home or self-care (01) ==
LOC: EC 11:34
DX: S80.01XA Contusion of right knee, initial encounter (principal); F17.290 Nicotine dependence, other tobacco product, uncomplicated; Z88.8 Allergy status to other drugs, medicaments and biological substances; X58.XXXA Exposure to other specified factors, initial encounter
CPT/HCPCS: 99283; 99406

== ENCOUNTER 2023-06-17 12:28 | Inpatient (IN) | payer OTHER ==
[2023-06-17 13:00] LABS: Glucose,Whole Blood 110 mg/dL (70-110)
[2023-06-17] MEDS: levETIRAcetam IV 500 MG/5 ML VIAL IVP STA (13:02)
[2023-06-17] MEDS: SODIUM CHLORIDE 0.9% 1,000 ML IV STA (13:02)
--- NOTE | 2023-06-17 13:05 | ED ---
General Adult HPI - General Chief complaint: Altered Mental Status Stated complaint: Syncope Time Seen by Provider: 06/17/23 12:41 Source: patient, EMS, RN notes reviewed, old records reviewed Mode of arrival: ambulatory Limitations: no limitations, altered mental status - History of Present Illness Initial comments: Patient is a 53-year-old male who presents emergency department for altered mentation. Patient was found down in the basement at his [facility] prior to arrival. He has a small laceration to his right cheek. He does not remember how he got there. Was brought here for further evaluation. Patient is a poor historian overall. Denies any chest pain or shortness of breath. Does feel weak on the left side. States he thinks he has a history of strokes but cannot recall. Denies being on any known blood thinners. Denies chest pain or shortness of breath or abdominal pain. Patient is tearful and upset. Presents for further evaluation at this time. Originally evaluated by the midlevel provider and I assumed care when there was concern that it may be a code stroke.Last known well was at was at 2:30 AM when checked into his [facility]/sober house.Patient states he thinks he may have a seizure disorder but cannot recall. - Related Data Home Medications Medication Instructions Recorded Confirmed Atomoxetine HCl [Strattera] 40 mg PO DAILY 06/17/23 06/17/23 DULoxetine HCL [Cymbalta] 60 mg PO DAILY 06/17/23 06/17/23 Ibuprofen [Motrin] 800 mg PO QID PRN 06/17/23 06/17/23 traZODone HCL [Trazodone HCl] 300 mg PO HS 06/17/23 06/17/23 Allergies Allergy/AdvReac Type Severity Reaction Status Date / Time sertraline [From Zoloft] AdvReac Rash/Hives Verified 06/17/23 12:38 Review of Systems ROS Statement: Those systems with pertinent positive or pertinent negative responses have been documented in the HPI. Review of Systems: CONST: Denies fever EYES: Denies blurry vision ENT: Denies nasal congestion C/V: Denies Chest pain RESP: Denies shortness of breath GI: Denies abdominal pain : Denies dysuria SKIN: Denies rash. MSK: Denies joint pain. NEURO: Endorses left-sided weakness ROS Other: All systems not noted in ROS Statement are negative. Past Medical History Past Medical History: No Reported History Additional Past Medical History / Comment(s): Lyme, cellulitis History of Any Multi-Drug Resistant Organisms: None Reported Past Surgical History: No Surgical Hx Reported, Back Surgery Additional Past Surgical History / Comment(s): Right leg phlebectomy. Back abscess and surgery with 6 bolts, 2 titanium cages, and 2 plastic discs in 2019 Past Psychological History: Anxiety, Depression Smoking Status: Current every day smoker, Vaper Past Alcohol Use History: None Reported Past Drug Use History: Prescription Drug Abuse General Exam - General Exam Comments Initial Comments: General: Appears anxious HEAD: Normal with no signs of head trauma. EYES: PERRLA, EOMI, conjunctiva normal, no discharge. Pupils are 3 mm and equal bilaterally. ENT: Hearing grossly intact, normal oropharynx. RESPIRATORY: Clear breath sounds bilaterally. No wheezes, rales, or rhonchi. C/V: Regular rate and rhythm. S1 and S2 auscultated, no edema, peripheral pulses 2+ and intact throughout ABD: Abd is soft, nontender, nondistended EXT: Normal range of motion, no obvious deformity SKIN: No rashes or lesions observed on exposed skin. NEURO: Alert and oriented x 4. GCS of 15. NIH is 5. Patient receives 1 point for left upper extremity weakness, 2 points for left lower extremity weakness, 1 point for left lower extremity ataxia, and 1 point for mild decrease sensation to light touch on the left side. Limitations: no limitations, altered mental status Course Vital Signs 06/17/23 06/17/23 06/17/23 12:33 13:23 14:00 Temperature 97.7 F Pulse Rate 96 77 84 Respiratory 16 16 16 Rate Blood Pressure 140/96 136/82 140/85 O2 Sat by Pulse 99 97 99 Oximetry 06/17/23 17:00 Temperature Pulse Rate 90 Respiratory 16 Rate Blood Pressure 127/89 O2 Sat by Pulse 96 Oximetry Medical Decision Making - Medical Decision Making Was pt. sent in by a medical professional or institution ([facility], [employer], urgent care, hospital, or alf...) When possible be specific @ -Sent from his sober house [facility] for evaluation for altered mentation. Did you speak to anyone other than the patient for history (EMS, parent, family, police, friend...)? What history was obtained from this source @ -No Did you review nursing and triage notes (agree or disagree)? Why? @ -I reviewed and agree with nursing and triage notes Were old charts reviewed (outside hosp., previous admission, EMS record, old EKG, old radiological studies, urgent care reports/EKG's, alf records)? Report findings @ -Old charts reviewed Differential Diagnosis (chest pain, altered mental status, abdominal pain women, abdominal pain men, vaginal bleeding, weakness, fever, dyspnea, syncope, headache, dizziness, GI bleed, back pain, seizure, CVA, palpatations, mental health, musculoskeletal)? @ -Differential CVA Ischemic stroke, hemorrhagic stroke, brain tumor, atypical migraine, Wernicke's encephalopathy, seizure, multiple sclerosis, meningitis, encephalitis, hypoglycemia, Guillain-Tavera, electrolytes disturbance, myasthenia gravis.... This is not meant to be an all-inclusive list Differential Altered Mental Status: Hypoglycemia, DKA, hypercapnia, ETOH, overdose, CO poisoning, trauma, myxedema coma, HTN encephalopathy, infection, encephalitis, psychosis, intercranial hemorrhage, hepatic encephalopathy, meningitis, CVA, this is not meant to be an all-inclusive list EKG interpreted by me (3pts min.). @ -As above X-rays interpreted by me (1pt min.). @ -Chest x-ray reveals no obvious acute cardiopulmonary process. Radiology does see airspace opacities in the right lung base however patient is asymptomatic. Will continue to monitor. CT interpreted by me (1pt min.). @ -CT brain, CT C-spine, CT angiogram of the head and neck negative for any obvious acute intracranial process or injury. No obvious large vessel occlusion. U/S interpreted by me (1pt. min.). @ -None done What testing was considered but not performed or refused? (CT, X-rays, U/S, labs)? Why? @ -None What meds were considered but not given or refused? Why? @ -None Did you discuss the management of the patient with other professionals (professionals i.e. , PA, EDGE POLISHER, lab, RT, psych nurse, social services counselor, senior design engineering specialist, teacher, licensed mortgage loan officer, manager of case)? Give summary @ -Discussed with Dr. White of [facility] who was in agreement with plan for workup. Updated Dr. White following results of imaging and he reviewed them. Was in agreement with plan for aspirin and medical management at this time. Spoke with the admitting physician Dr. Villafuerte who accepted the admission. Was smoking cessation discussed for >3mins.? @ -No Was critical care preformed (if so, how long)? @ -Yes, 34 minutes. Were there social determinants of health that impacted care today? How? (Homelessness, low income, unemployed, alcoholism, drug addiction, transportation, low edu. Level, literacy, decrease access to med. care, residential, rehab)? @ -No Was there de-escalation of care discussed even if they declined (Discuss DNR or withdrawal of care, Hospice)? DNR status @ -No What co-morbidities impacted this encounter? (DM, HTN, Smoking, COPD, CAD, Cancer, CVA, ARF, Chemo, Hep., AIDS, mental health diagnosis, sleep apnea, morbid obesity)? @ -None Was patient admitted / discharged? Hospital course, mention meds given and route, prescriptions, significant lab abnormalities, going to OR and other pertinent info. @ -Based on patient's presentation and physical exam, was brought here for altered mentation. Last known well was at 2:30 AM. It is nearly 1 PM. Checked into a sober house at 2:30 AM. Was found down in the basement by staff prior to arrival. Seemed confused. Upon arrival, initial workup for altered mentation revealed that he does have more localized left-sided deficits. Unknown if he has a history of stroke or not. Patient states he may have a history of seizures. He is a poor historian at this time and is conversationally confused but alert and oriented x [address] and time. Patient's NIH is 5. Therefore we did make him a code stroke. Deficits seem to be left upper and left lower extremities as well as sensory deficits. Unknown if this is acute or chronic. Patient is not a tenecteplase candidate as the risks for outweigh the benefits. He is outside of the window for therapy as last known well was at 2:30 AM. Code stroke was activated. Also within acceptable limits EKG shows no signs of acute ischemia.Imaging unremarkable. Chest x-ray shows possible early pneumonia findings but patient is asymptomatic. Patient's laboratory studies returned remarkable for slight the elevated creatinine kinase of 643 which was treated with IV fluids. After the patient. NIH is currently 1 now with just paresthesias of the left side of his body. Weakness improved as has his conversational confusion. I discussed the results also with neuro crit care, Dr. Styles who reviewed imaging and was in agreement with plan for management with aspirin and admission for medical management. Patient given 325 mg of aspirin. He will be admitted under Dr. Villafuerte who accepted the admission. Neurology consulted. Patient was in agreement this plan. Undiagnosed new problem with uncertain prognosis? @ -No Drug Therapy requiring intensive monitoring for toxicity (Heparin, Nitro, Insulin, Cardizem)? @ -No Were any procedures done? @ -No Diagnosis/symptom? @ -CVA, Altered mental status Acute, or Chronic, or Acute on Chronic? @ -Acute Uncomplicated (without systemic symptoms) or Complicated (systemic symptoms)? @ -Complicated Side effects of treatment? @ -None Exacerbation, Progression, or Severe Exacerbation] @ -No Poses a threat to life or bodily function? @ -Yes - Lab Data Result diagrams: 06/17/23 12:56 06/17/23 12:56 Lab Results 06/17/23 06/17/23 06/17/23 Range/Units 12:49 12:56 12:56 WBC 8.1 (3.8-10.6) k/uL RBC 4.58 (4.30-5.90) m/uL Hgb 13.4 (13.0-17.5) gm/dL Hct 40.6 (39.0-53.0) % MCV 88.5 (80.0-100.0) fL MCH 29.3 (25.0-35.0) pg MCHC 33.1 (31.0-37.0) g/dL RDW 13.7 (11.5-15.5) % Plt Count 240 (150-450) k/uL MPV 8.3 Neutrophils % 78 % Lymphocytes % 13 % Monocytes % 7 % Eosinophils % 0 % Basophils % 0 % Neutrophils # 6.3 (1.3-7.7) k/uL Lymphocytes # 1.1 (1.0-4.8) k/uL Monocytes # 0.6 (0-1.0) k/uL Eosinophils # 0.0 (0-0.7) k/uL Basophils # 0.0 (0-0.2) k/uL PT 10.2 (10.0-12.5) sec INR 0.9 (<1.2) APTT 23.7 (22.0-30.0) sec Sodium (137-145) mmol/L Potassium (3.5-5.1) mmol/L Chloride (98-107) mmol/L Carbon Dioxide (22-30) mmol/L Anion Gap mmol/L BUN (9-20) mg/dL Creatinine (0.66-1.25) mg/dL Est GFR (CKD-EPI)AfAm (>60 ml/min/1.73 sqM) Est GFR (CKD-EPI)NonAf (>60 ml/min/1.73 sqM) Glucose (74-99) mg/dL POC Glucose (mg/dL) 110 (70-110) mg/dL POC Glu Ginner Helper ID Surekha Diallo Plasma Lactic Acid Mark (0.7-2.0) mmol/L Calcium (8.4-10.2) mg/dL Total Bilirubin (0.2-1.3) mg/dL AST (17-59) U/L ALT (4-49) U/L Alkaline Phosphatase (38-126) U/L Ammonia (<30) umol/L Creatine Kinase (55-170) U/L Troponin I (0.000-0.034) ng/mL Total Protein (6.3-8.2) g/dL Albumin (3.5-5.0) g/dL Serum Alcohol mg/dL 06/17/23 06/17/23 06/17/23 Range/Units 12:56 12:56 12:56 WBC (3.8-10.6) k/uL RBC (4.30-5.90) m/uL Hgb (13.0-17.5) gm/dL Hct (39.0-53.0) % MCV (80.0-100.0) fL MCH (25.0-35.0) pg MCHC (31.0-37.0) g/dL RDW (11.5-15.5) % Plt Count (150-450) k/uL MPV Neutrophils % % Lymphocytes % % Monocytes % % Eosinophils % % Basophils % % Neutrophils # (1.3-7.7) k/uL Lymphocytes # (1.0-4.8) k/uL Monocytes # (0-1.0) k/uL Eosinophils # (0-0.7) k/uL Basophils # (0-0.2) k/uL PT (10.0-12.5) sec INR (<1.2) APTT (22.0-30.0) sec Sodium 139 (137-145) mmol/L Potassium 3.9 (3.5-5.1) mmol/L Chloride 108 H (98-107) mmol/L Carbon Dioxide 21 L (22-30) mmol/L Anion Gap 10 mmol/L BUN 11 (9-20) mg/dL Creatinine 0.74 (0.66-1.25) mg/dL Est GFR (CKD-EPI)AfAm >90 (>60 ml/min/1.73 sqM) Est GFR (CKD-EPI)NonAf >90 (>60 ml/min/1.73 sqM) Glucose 107 H (74-99) mg/dL POC Glucose (mg/dL) (70-110) mg/dL POC Glu Ginner Helper ID Plasma Lactic Acid Mark 1.3 (0.7-2.0) mmol/L Calcium 9.4 (8.4-10.2) mg/dL Total Bilirubin 0.6 (0.2-1.3) mg/dL AST 33 (17-59) U/L ALT 17 (4-49) U/L Alkaline Phosphatase 79 (38-126) U/L Ammonia <9 (<30) umol/L Creatine Kinase 643 H (55-170) U/L Troponin I <0.012 (0.000-0.034) ng/mL Total Protein 7.3 (6.3-8.2) g/dL Albumin 4.4 (3.5-5.0) g/dL Serum Alcohol <10 mg/dL - EKG Data -: EKG Interpreted by Me EKG Comments: 12-lead Electrocardiogram Interpretation Note EKG was reviewed and interpreted by myself. 12-lead ECG performed at 1233 is interpreted by me as revealing normal sinus rhythm at a rate of 96 beats per minute. [place] is normal. VA interval is 165 ms, QRS duration is 109 ms, QTc is 395 ms.. There were no ST or T wave abnormalities to suggest myocardial ischemia or injury. R wave progression across the precordium was satisfactory. By my interpretation this EKG is non-diagnostic for acute ischemia. Critical Care Time Critical Care Time: Yes Total Critical Care Time: 34 Disposition Clinical Impression: CVA (cerebral vascular accident), Altered mental status Disposition: ADMITTED IP TO THIS HOSP Condition: Stable Time of Disposition: 15:15
[2023-06-17 13:25] LABS: Basophils % (A) 0 %; Eosinophils % (A) 0 %; HCT 40.6 % (39.0-53.0); HGB 13.4 gm/dL (13.0-17.5); Lymphocytes # (A) 1.1 k/uL (1.0-4.8); Lymphocytes % (A) 13 %; MCH 29.3 pg (25.0-35.0); MCHC 33.1 g/dL (31.0-37.0); MCV 88.5 fL (80.0-100.0); Mean Platelet Volume 8.3; Monocytes # (A) 0.6 k/uL (0-1.0); Monocytes % (A) 7 %; Neutrophils # (A) 6.3 k/uL (1.3-7.7); Neutrophils % (A) 78 %; Platelet Count 240 k/uL (150-450); RBC 4.58 m/uL (4.30-5.90); RDW 13.7 % (11.5-15.5); WBC 8.1 k/uL (3.8-10.6)
--- NOTE | 2023-06-17 13:30 | CT ---
EXAMINATION TYPE: CODE STROKE: CT brain wo contr CT DLP: 1098 mGycm, Automated exposure control for dose reduction was used. DATE OF EXAM: 06/17/2023 1:21 PM COMPARISON: None. CLINICAL INDICATION:Male, 53 years old with history of Neuro deficit, acute, stroke suspected, stroke TECHNIQUE: Brain: Axial CT images of the brain were obtained with coronal and sagittal reformats created and rev iewed. Contrast used: None. Oral contrast used: None. FINDINGS: Brain: Extra-axial spaces: No abnormal extra-axial fluid collections. Ventricular system: Within normal limits Cerebral parenchyma: No acute intraparenchymal hemorrhage or mass effect. The esparza-white junction is well differentiated. Cerebellum: Unremarkable. Mass effect: No evidence of midline shift. Intracranial vasculature: unremarkable Soft tissues: Normal. Calvarium/osseous structures: No depressed skull fracture. Paranasal sinuses and mastoid air cells: Mild scattered paranasal sinus disease. Visualized orbits: Orbital contents are intact. IMPRESSION: No acute intracranial process.
[2023-06-17 13:33] LABS: INR 0.9 (<1.2); Partial Thromboplastin Time 23.7 sec (22.0-30.0); Prothrombin Time 10.2 sec (10.0-12.5)
--- NOTE | 2023-06-17 13:37 | CT ---
EXAMINATION TYPE: CT angio head neck CT DLP: 588 mGycm, Automated exposure control for dose reduction was used. DATE OF EXAM: 06/17/2023 1:31 PM COMPARISON: Same day CT cervical spine.. CLINICAL INDICATION:Male, 53 years old with history of Neuro deficit, acute, stroke suspected; PH, s troke TECHNIQUE: Axially acquired helical CT angiogram of the head and neck was obtained with contrast. Axi al images are supplemented with 3D reconstructions and MIP images which were post-processed at an in dependent workstation. NASCET criteria used. Contrast used:65 mL of Isovue 370 with IV Contrast, Oral contrast used: None. FINDINGS: CTA HEAD: No evidence of acute intracranial hemorrhage, mass effect, or midline shift. The ventricles, sulci, a nd cisterns are unremarkable. The visualized portions of the internal carotid arteries, middle cerebral arteries, anterior cerebral arteries, and posterior cerebral arteries are patent. The basilar and vertebral arteries are patent. CTA NECK: Right Carotid System: The common carotid artery and external carotid artery are patent. The carotid bifurcation demonstrate s no evidence of hemodynamically significant stenosis. The remaining portions of the internal carotid artery demonstrate normal size without significant narrowing. Left Carotid System: The common carotid artery and external carotid artery are patent. The carotid bifurcation demonstrate s no evidence of hemodynamically significant stenosis. The remaining portions of the internal carotid artery demonstrate normal size without significant narrowing. Vertebral arteries are patent without evidence hemodynamically significant stenosis. There is a three-vessel aortic arch. The origins of the great vessels are patent. No evidence of hemo dynamically significant stenosis. Upper thorax: IMPRESSION: 1. No evidence of dissection of the cervical internal carotid arteries or vertebral arteries or any e vidence of significant stenosis at the carotid bifurcations. 2. No evidence of intracranial high-grade stenosis or intracranial aneurysm.
--- NOTE | 2023-06-17 13:39 | CT ---
EXAMINATION TYPE: CT cervical spine wo con CT DLP: 399 mGycm, Automated exposure control for dose reduction was used. DATE OF EXAM: 06/17/2023 1:25 PM COMPARISON: Same day CT. CLINICAL INDICATION:Male, 53 years old with history of ams, possible fall; PHH, fall TECHNIQUE: Axial CT images from the skull base to the inferior aspect of T2 we obtained without intra venous contrast. Coronal and sagittal reformatted images were also reviewed. Contrast used: mL of , (if blank None) Oral contrast used: (if blank None) FINDINGS: Fracture: None. Osseous structures: Multilevel degenerative disc disease changes with endplate spurring and disc oste ophyte complex's. Vertebral alignment: Alignment within normal limits. Spinal canal/Neural Foramina: No evidence of significant spinal canal narrowing. No evidence for sign ificant neural foraminal stenosis. Neck soft tissues: Prevertebral soft tissues are within normal limits. Other: The airway is patent. The lung apices are clear. IMPRESSION: 1. Motion limited exam. No evidence of cervical spine fracture. 2. Mild multilevel degenerative disc disease.
[2023-06-17 13:43] LABS: ALT 17 U/L (4-49); AST 33 U/L (17-59); African American GFR (CKD) >90 (>60 ml/min/1.73 sqM); Albumin 4.4 g/dL (3.5-5.0); Alcohol <10 mg/dL; Alkaline Phosphatase 79 U/L (38-126); Anion Gap 10 mmol/L; Blood Urea Nitrogen 11 mg/dL (9-20); Calcium 9.4 mg/dL (8.4-10.2); Carbon Dioxide 21 mmol/L (22-30); Chloride 108 mmol/L (98-107); Creatine Kinase 643 U/L (55-170); Glucose 107 mg/dL (74-99); Non-African American GFR(CKD) >90 (>60 ml/min/1.73 sqM); Potassium 3.9 mmol/L (3.5-5.1); Sodium 139 mmol/L (137-145); Total Bilirubin 0.6 mg/dL (0.2-1.3); Total Protein 7.3 g/dL (6.3-8.2)
[2023-06-17 13:49] LABS: Lactic Acid, Venous 1.3 mmol/L (0.7-2.0)
[2023-06-17] MEDS: ASPIRIN 325 MG TAB PO STA (14:24)
--- NOTE | 2023-06-17 15:25 | XR ---
EXAMINATION TYPE: XR chest 1V portable DATE OF EXAM: 06/17/2023 3:13 PM CLINICAL INDICATION:Male, 53 years old with history of ams; COMPARISON: None TECHNIQUE: XR chest 1V portable Frontal view of the chest. FINDINGS: Lungs/Pleura: Increased airspace opacities in the right lung base. There is no evidence of pleural ef fusion, left focal consolidation, or pneumothorax. Pulmonary vascularity: Unremarkable. Heart/mediastinum: Cardiomediastinal silhouette is unremarkable. Musculoskeletal: No acute osseous pathology. IMPRESSION: Increased airspace opacities in the right lung base correlate for developing pneumonia..
[2023-06-17 20:06] LABS: Appearance,Urine Clear (Clear); Bilirubin,Urine Negative (Negative); Blood,Urine Negative (Negative); Color,Urine Colorless; Glucose,Urine (UA) Negative (Negative); Ketones,Urine Negative (Negative); Leukocyte Esterase,Urine Negative (Negative); Nitrite,Urine Negative (Negative); PH, Urine 6.5 (5.0-8.0); Protein,Urine Negative (Negative); Specific Gravity,Urine 1.017 (1.001-1.035); Urobilinogen,Urine <2.0 mg/dL (<2.0)
[2023-06-17 20:23] LABS: Amphetamine Screen,Urine Not Detected (NotDetected); Barbiturate Screen,Urine Not Detected (NotDetected); Benzodiazepines Screen,Urine Not Detected (NotDetected); Cocaine Screen,Urine Detected (NotDetected); Methadone Screen, Urine Not Detected (NotDetected); Opiate Screen,Urine Not Detected (NotDetected); Oxycodone Screen, Urine Not Detected (NotDetected); Phencyclidine Screen,Urine Not Detected (NotDetected); Tricyclic Antidepressant,Urine Not Detected (NotDetected); Urn Cannabinoid Scrn Not Detected (NotDetected)
[2023-06-17] MEDS ORDERED: NICOTINE 14MG/24HR PATCH TRANSDERM STA (20:59)
[2023-06-17] MEDS: NICOTINE 21MG/24HR PATCH TRANSDERM STA (22:02)
[2023-06-17] MEDS: IBUPROFEN 800 MG TAB PO PRN (22:04)
[2023-06-18] MEDS: MELATONIN 5 MG TABLET PO ONE (04:55)
[2023-06-18] MEDS: NON FORMULARY DRUG (Atomoxetine Hcl [Strattera] 40 MG Capsule) PO SCH (07:54)
[2023-06-18] MEDS: DULoxetine HCL 60 MG CAPSULE.DR PO SCH (08:10)
[2023-06-18 08:50] LABS: Chol/HDL Ratio 2.59 Ratio; LDL Cholesterol,Calculated 104.8 mg/dL (0.0-131.0); VLDL Calculation 8.18 mg/dL (5.00-40.00)
--- NOTE | 2023-06-18 12:11 | P.CNNES ---
History of Present Illness Consult date: 06/18/23 Requesting physician: Petros Shaikh Reason for Consult: CVA History of Present Illness: Patient is a 53-year-old right-handed male with history of tobacco use, came to the hospital by ambulance yesterday at 12:28 PM for a syncopal spell, versus stroke/TIA. Patient states that he went out with his friends for a band democrat. His girlfriend dropped him home at about 2:30 AM. He remembers going to the basement to get comforter from the dryer in the next thing he remembers is that he was laying on the floor. He does not remember falling. He just laid there. He could not move his left arm or left leg, could not scream. His left side was numb. He just laid there, could not talk, could not form words. Somehow his roommate found him and called ambulance. Patient states that for about 1 week he has been feeling dizzy, lightheadedness but no vertigo. As per EMS flowsheet when they arrived, patient was laying prone on a concrete floor in the basement of her recovery home. Patient is alert but appears al tered. Bystanders were poor historians. Bystanders states he heard a thud while doing laundry and found the patient on the floor. Patient states he feels "numb". There are no obvious injuries noted to the patient's face or head. Patient denies pain. Patient nods when asked about previous stroke and seizure disorder. Patient's dish washer strength was equal and no facial droop was noted. Patient was able to answer questions but was slow to respond. Patient's vitals at the scene was blood pressure 162/98, pulse rate 92, respiration 18 saturation 97%. Blood glucose 156. Vital signs on arrival blood pressure 140/96 pulse rate 96 temperature 97.7. Blood tests showed normal CBC, PT PTT, normal CMP, CK6 43. Troponin negative, lipid panel with cholesterol 184, LDL 104, HDL 71. UA is negative urine drug screen positive for cocaine. Blood alcohol level negative. EKG showed sinus rhythm CT head revealed no acute intracranial process. I personally reviewed CT head, agree with the findings. CT of the cervical spine showed motion limited exam. No evidence of cervical spine fracture. Mild multilevel degenerative disc disease. Chest x-ray showed increased airspace opacities in the right lung base correlate for developing pneumonia. CTA of the head and neck revealed no evidence of dissection of the cervical internal carotid arteries or vertebral arteries or any evidence of significant stenosis at the carotid bifurcation. No evidence of intracranial high-grade stenosis or intracranial aneurysm. Code stroke was activated in the ER. Patient was considered not a candidate for tPA, as he came outside the window for tPA. Patient states that he has history about 3 seizures in the lifetime. The first 1 was when he was about 9 or 10 years of age. He was not placed on any seizure medication. His second seizure was in early 20s when he was in nursing home. He was not present for about 10 years. The last 1 was about 10 years ago, but he does not remember details. He remembers hitting his back of his head in the bathroom. He has not seek medical attention for any of these seizures. Never been on any seizure medication. Patient also claims that he has possible CVA at age 18, when he developed left facial droop, that lasted for "months". He is not sure if it was a stroke or Carpio's palsy. There were no other deficits besides facial weakness. Patient does have depression, ADHD on Strattera. He has no children. Denies diabetes or blood pressure. He has smoked 1 and half pack per day for last 40 years. He is trying to quit and is using vaping but smoking and vaping together. Denies any alcohol use. He smoked couple lines of cocaine last night which she has done after "5-1/2 years". Patient has history of multiple back surgeries in his early 20s and then 5 years ago. Home medications include ibuprofen, Cymbalta 60 mg, trazodone 300 mg at bedtime and Strattera 40 mg. Review of Systems Constitutional: Reports chills, Denies fever Eyes: bilateral blurred vision (Last night, but now better ), denies diplopia, denies pain, denies loss of vision Ears: deny: decreased hearing, ear discharge Ears, nose, mouth and throat: Reports headache (Bad headache last night. He gets migraines), Denies sore throat, Denies vertigo Cardiovascular: Reports lightheadedness, Denies chest pain, Denies shortness of breath Respiratory: Reports cough, Denies excessive sputum Gastrointestinal: Denies abdominal pain, Denies diarrhea, Denies nausea, Denies vomiting Genitourinary: Reports urinary frequency, Denies incontinence Musculoskeletal: Reports low back pain, Denies neck pain Integumentary: Denies pruritus, Denies rash Neurological: Reports as per HPI Psychiatric: Reports anxiety, Reports depression Hematologic/Lymphatic: Denies easy bleeding, Denies easy bruising Past Medical History Past Medical History: Skin Disorder Additional Past Medical History / Comment(s): Lyme, cellulitis History of Any Multi-Drug Resistant Organisms: None Reported Past Surgical History: No Surgical Hx Reported, Back Surgery Additional Past Surgical History / Comment(s): Right leg phlebectomy. Back abscess and surgery with 6 bolts, 2 titanium cages, and 2 plastic discs in 2019 Past Anesthesia/Blood Transfusion Reactions: No Reported Reaction Past Psychological History: Anxiety, Depression Smoking Status: Current every day smoker, Vaper Past Alcohol Use History: Abuse, Daily, Heavy Additional Past Alcohol Use History / Comment(s): lives at sober living home for the past 3 months Past Drug Use History: Cocaine, Prescription Drug Abuse Medications and Allergies Home Medications Medication Instructions Recorded Confirmed Type Atomoxetine HCl [Strattera] 40 mg PO DAILY 06/17/23 06/17/23 History DULoxetine HCL [Cymbalta] 60 mg PO DAILY 06/17/23 06/17/23 History Ibuprofen [Motrin] 800 mg PO QID PRN 06/17/23 06/17/23 History traZODone HCL [Trazodone HCl] 300 mg PO HS 06/17/23 06/17/23 History Allergies Allergy/AdvReac Type Severity Reaction Status Date / Time sertraline [From Zoloft] AdvReac Rash/Hives Verified 06/17/23 12:38 Physical Examination - Vital Signs Vital Signs: Vital Signs Temp Pulse Pulse Resp BP BP BP 06/18/23 08:08 98.0 F 82 16 132/86 06/18/23 04:00 98.0 F 80 16 127/80 06/18/23 00:48 89 16 06/17/23 23:27 98.0 F 89 16 112/74 06/17/23 20:56 98.0 F 90 16 105/64 06/17/23 17:00 90 16 127/89 06/17/23 14:00 84 16 140/85 06/17/23 13:23 77 16 136/82 06/17/23 12:33 97.7 F 96 16 140/96 Pulse Ox 06/18/23 08:08 99 06/18/23 04:00 96 06/18/23 00:48 06/17/23 23:27 96 06/17/23 20:56 98 06/17/23 17:00 96 06/17/23 14:00 99 06/17/23 13:23 97 06/17/23 12:33 99 Intake and Output 06/17/23 06/18/23 06/18/23 22:59 06:59 14:59 Intake Total 500 Output Total 800 Balance -800 500 Intake: IV 20 Invasive Line 1 10 Invasive Line 2 10 Oral 480 Output: Urine 800 Other: Voiding Method Urinal Urinal # Voids 1 Weight 88.9 kg Patient is a middle aged male, in no acute distress. Patient is alert awake oriented to time place and person. He knows it is May 2023 and that he is in [facility] imported on [place]. Speech and language functions are normal. Patient can name and repeat very well. No aphasia or dysarthria. Attention, concentration and fund of knowledge is adequate. On cranial nerve examination, pupils are equal, round and reacting to light, visual zambrano are full on confrontation, with no neglect on double simultaneous stimulation. Extraocular muscles are intact with no nystagmus. Face is symmetric, tongue protrudes to the midline. Palatal elevation and sensation normal, hearing and shoulder shrug normal, facial sensation normal. On muscle strength testing, there is mild right drift without pronation. The muscle strength is (right/left) biceps 5/5-, triceps 5/5-, deltoid 5/5, dish washer 5/5-. In the lower limbs hip flexion is 5-/5-, ankle dorsiflexion 5/5. Deep tendon reflexes are symmetric but hypoactive and plantars downgoing. Sensory to touch is equal with no neglect on double simultaneous stimulation. Cerebellar function showed possible mild ataxia for [id number] testing only on the left side but not right arm. Patient has mild ataxia for [id number] testing only on the left side. Tone and bulk of muscles normal. Gait deferred.. On general examination, there is no carotid bruit or murmur, S1-S2 audible. Chest is clear on consultation. Abdomen is soft nontender. No organomegaly, bowel sounds present. Peripheral pulses are present. No peripheral edema. Results - Laboratory Findings CBC and BMP: 04/28/24 12:56 06/17/23 12:56 Abnormal Lab Findings: Abnormal Labs 06/17/23 06/17/23 06/17/23 12:56 12:56 19:34 Chloride 108 H Carbon Dioxide 21 L Glucose 107 H Creatine Kinase 643 H HDL Cholesterol 71.00 H Urine Cocaine Screen Detected H Assessment and Plan Assessment: * Status post fall, unclear cause. Patient does not remember falling, and was subsequently not able to talk, speak or get up for a few hours. Patient still has mild weakness/ataxia left arm and leg. Rule out stroke/TIA. * History of possible seizure (vs ?syncope) x 3 in the past, never been worked up. * Urine positive for cocaine * Rhabdomyolysis * Hyperlipidemia * History of multiple back surgeries * Tobacco use * ADHD * Depression Plan: * Check MRI of the brain rule out CVA. * CTA of the head and neck showed no significant stenosis, occlusion or aneurysm. * 2D echo with bubble study rule out PFO * Hemoglobin A1c * EEG rule out any epileptiform activity. * Lipid panel with cholesterol 184, LDL 104, HDL 71, triglycerides 40. Start Lipitor 20 mg daily. * Start aspirin 81 mg daily for stroke prevention. * Follow CK * Counseled patient about abstinence from substance use including tobacco and cocaine. * Neurology will follow. Thank you for the consult. Time with Patient: Greater than 30
[2023-06-18] MEDS: ASPIRIN 81 MG PO SCH (12:31)
[2023-06-18] MEDS: ATORVASTATIN 20 MG TAB PO SCH (20:35)
[2023-06-18] MEDS ORDERED: traZODone HCL 50 MG TAB PO SCH (21:00)
[2023-06-18] MEDS: traZODone HCL 100 MG TAB PO SCH (21:13)
--- NOTE | 2023-06-19 02:47 | EEG ---
ELECTROENCEPHALOGRAM REPORT PREAMBLE: This is a 53-year-old male with syncope versus seizure. The patient states he has history of seizures in the past. CURRENT MEDICATIONS: 1. Aspirin. 2. Cymbalta. 3. Strattera. 4. Lipitor. EEG FINDINGS: This is a 21-channel digital EEG recorded with video component, utilizing 10/20 international system with referential and bipolar montages. Background consists of well-developed, well-regulated moderate voltage activity and 10 to 11 hertz alpha. Background is posterior dominant and reactive to eye opening and closing. Drowsiness was seen with appearance of bilaterally symmetric theta frequency rhythm. Stage 2 sleep was attained with presence of sleep spindles and vertex waves. Photic stimulation and hyperventilation were not performed. No focal or generalized epileptiform activity was seen. IMPRESSION: This is a normal EEG during wakefulness, drowsiness, and stage 2 sleep. No focal, lateralized, or epileptiform activity was seen. MMFRANDYL / GREGN: [id number] /
--- NOTE | 2023-06-19 03:47 | HP ---
HISTORY AND PHYSICAL CHIEF COMPLAINT: Possible CVA. HISTORY OF PRESENT ILLNESS: This gentleman presented to the emergency room with some numbness and tingling in the left hand and he was having difficulty talking. He has not had a similar episode. He denies any headaches, head injuries, palpitations, syncope, change in vision or hearing, cough, etc. Past medical history, family history, personal and social histories reveal that he is allergic to Zoloft. MEDICATIONS: He is on, 1. Trazodone. 2. Duloxetine. 3. Ibuprofen. 4. Gabapentin. SOCIAL HISTORY: He does have a history of smoking about a pack of cigarettes a day. He denies drinking alcohol. The remainder of his history is unremarkable. PHYSICAL EXAMINATION: VITAL SIGNS: Blood pressure is 128/90, pulse 80, respirations of 16, AND is afebrile. GENERAL: He appeared to be slender, awake, and in no acute distress. SKIN: Color is normal. He has multiple tattoos. HEENT: Head, ears, eyes, nose, mouth and throat were normal. NECK: Carotids are normal. CHEST: Clear. CARDIAC: Normal with sinus rhythm. There are no murmurs or extra sounds. ABDOMEN: Flat, soft, nontender. EXTREMITIES: Normal. NEUROLOGICAL: At the present time, he seems to be doing well. His speech is back to normal. He does not have any diplopia. He has no confusion. Cranial nerves are intact. The only residual symptom that he had at this time was some tingling in the fingers of the left hand. He has no obvious motor deficits. DIAGNOSES: He was admitted to the hospital with diagnosis, 1. Possible right-sided TIA. PLAN: 1. Bed rest. 2. IV fluids. 3. CTA. 4. Consult with Neurology. MMODL / IJN: [id number] /
--- NOTE | 2023-06-19 08:06 | PN ---
PROGRESS NOTE CHIEF COMPLAINT: Right-sided TIA. HISTORY OF PRESENT ILLNESS: This gentleman is improving. He still has some tingling in the fingers on the left side. His speech has returned. He has no problems with vision including diplopia, and he has no other deficits. PHYSICAL EXAMINATION: VITAL SIGNS: Normal. HEAD, EARS, EYES, NOSE, MOUTH: Normal. NECK: Carotids are normal. CHEST: Clear. CARDIAC: Normal. ABDOMEN: Soft, nontender. IMPRESSION: Right-sided transient ischemic attack. PLAN: Continue workup. MMODL / IJN: [id number] /
--- NOTE | 2023-06-19 17:10 | P.PN ---
Subjective Progress Note Date: 06/19/23 Patient was seen for follow-up. Patient states he is feeling much better. He states that he spoke to his mom, who told that his grandmother had 5-6 TIAs. At present he has no new symptoms. Objective - Vital Signs Vital signs: Vital Signs Temp 97.9 F 06/19/23 09:42 Pulse 85 06/19/23 12:00 Resp 16 06/19/23 12:00 BP 123/84 06/19/23 12:00 Pulse Ox 100 06/19/23 12:00 FiO2 Intake & Output 06/18/23 06/19/23 06/19/23 18:59 06:59 18:59 Intake Total 760 240 Balance 760 240 Intake: IV 40 Invasive Line 1 20 Invasive Line 2 20 Oral 720 240 Other: Voiding Method Urinal # Voids 2 1 - Exam Mental status, speech and language functions are normal. Cranial nerves are normal. Muscle strength is normal. No ataxia in the upper limbs. Reflexes are 1+ in the upper limbs at biceps and brachioradialis, 1+ at the knees and trace ankle and plantars downgoing. - Labs CBC & Chem 7: 06/17/23 12:56 06/17/23 12:56 Assessment and Plan Assessment: * Status post fall, unclear cause. Patient does not remember falling, and was subsequently not able to talk, speak or get up for a few hours. Patient still has mild weakness/ataxia left arm and leg. Rule out stroke/TIA. * History of possible seizure (vs ?syncope) x 3 in the past, never been worked up. * Urine positive for cocaine * Rhabdomyolysis * Hyperlipidemia * History of multiple back surgeries * Tobacco use * ADHD * Depression Plan: * Await MRI of the brain rule out CVA. * CTA of the head and neck showed no significant stenosis, occlusion or aneurysm. * Await 2D echo with bubble study rule out PFO * Hemoglobin A1c 5.7 * EEG was normal during wakefulness, drowsiness and stage II sleep. No epileptiform activity was seen. * Lipid panel with cholesterol 184, LDL 104, HDL 71, triglycerides 40. Start Lipitor 20 mg daily. * Start aspirin 81 mg daily for stroke prevention. * Follow CK * Counseled patient about abstinence from substance use including tobacco and cocaine.
--- NOTE | 2023-06-20 06:03 | PN ---
PROGRESS NOTE CHIEF COMPLAINT: Possible CVA. HISTORY OF PRESENT ILLNESS: This gentleman is doing fairly well and he has a very little neurologic residual from his TIA. PHYSICAL EXAMINATION: CHEST: Clear. CARDIAC: Normal. ABDOMEN: Soft, nontender. IMPRESSION: Cerebrovascular accident or transient ischemic attack. PLAN: Continue on neurologic workup and evaluation with head injury as a possible cause of his symptoms. MMODL / IJN: [id number] /
--- NOTE | 2023-06-20 06:57 | CA ---
Transthoracic Echo Report Name: Slade Rollins Age: 53 Gender: M : 1970 Exam Date: 06/19/2023 11:02 Exam Location: [place] [facility] Ht (in): 74 Wt (lb): 195 Ordering Physician: Denzel Parra MD Attending/Referring Phys: Architecture Professor Paige Small RDCS Procedure CPT: Indications: TIA vs CVA vs TIA Cardiac Hx: Technical Quality: Fair Contrast 1: Total Dose (mL): Contrast 2: Total Dose (mL): MEASUREMENTS (Male / Female) Normal Values 2D ECHO LV Diastolic Diameter PLAX 4.8 cm 4.2 - 5.9 / 3.9 - 5.3 cm LV Systolic Diameter PLAX 3.1 cm IVS Diastolic Thickness 1.2 cm 0.6 - 1.0 / 0.6 - 0.9 cm LVPW Diastolic Thickness 1.2 cm 0.6 - 1.0 / 0.6 - 0.9 cm LV Relative Wall Thickness 0.5 RV Internal Dim ED PLAX 3.1 cm LA Volume 38.7 cm??? 18 - 58 / 22 - 52 cm??? LA Volume Index 18.0 cm???/m??? 16 - 28 cm???/m??? M-MODE Aortic Root Diameter MM 2.9 cm LA Systolic Diameter MM 4.4 cm LA Ao Ratio MM 1.5 AV Cusp Separation MM 1.5 cm DOPPLER AV Peak Velocity 106.0 cm/s AV Peak Gradient 4.5 mmHg AV Mean Velocity 75.6 cm/s AV Mean Gradient 2.6 mmHg AV Velocity Time Integral 19.6 cm LVOT Peak Velocity 96.3 cm/s LVOT Peak Gradient 3.7 mmHg LVOT Velocity Time Integral 18.9 cm MV Area PHT 3.7 cm??? Mitral E Point Velocity 75.9 cm/s Mitral A Point Velocity 79.0 cm/s Mitral E to A Ratio 1.0 MV Deceleration Time 203.0 ms MV E' Velocity 7.6 cm/s Mitral E to MV E' Ratio 9.9 TR Peak Velocity 172.6 cm/s TR Peak Gradient 11.9 mmHg Right Ventricular Systolic Press 16.9 mmHg FINDINGS Left Ventricle Mildly increased left ventricular wall thickness. Left ventricular cavity size normal. Normal left ventricular systolic function with no obvious regional wall motion abnormalities. Left ventricular ejection fraction is estimated at 55-60 %. Normal left ventricular diastolic filling pattern. Right Ventricle Normal right ventricular size and function. Right ventricular systolic pressure within normal limits. Bubble study attempted, IV infiltrated. Right Atrium Normal right atrial size. Left Atrium Normal left atrial size. Mitral Valve Structurally normal mitral valve. Mild mitral regurgitation. Aortic Valve Trileaflet aortic valve. No aortic valve stenosis or regurgitation. Tricuspid Valve Structurally normal tricuspid valve. Mild tricuspid regurgitation. Pulmonic Valve Structurally normal pulmonic valve. Pericardium No pericardial effusion. Aorta Normal size aortic root and proximal ascending aorta. CONCLUSIONS Normal biventricular dimension and systolic function No significant valvular abnormalities noted No evidence of pericardial effusion Normal aortic root and proximal ascending aorta Previewed by: Dr. Jimenez Muir MD (Electronically Signed) Final Date: 20 Jun 2023 06:56
--- NOTE | 2023-06-20 10:59 | MR ---
EXAMINATION TYPE: MR brain wo con DATE OF EXAM: 06/20/2023 10:49 AM CLINICAL INDICATION:Male, 53 years old with history of Stroke vs TIA, vs seizure Hx of seizure; PHH, Episode of left arm tingling, difficulty with speech. TIA vs seizure. Hx of seizures. COMPARISON: 06/09/2023. TECHNIQUE: Multi planar, multi sequence imaging was performed through the brain including: T1, T2, In version recovery, Diffusion weighted imaging, and gradient echo imaging. No gadolinium was given. FINDINGS: The esparza-white junctions, ventricular system, basal cisterns appear unremarkable. Minimal scattered foci of high T2 signal intensity are seen within the periventricular white matter. Midline structure s show no abnormality. Diffusion-weighted imaging shows no evidence of restricted diffusion. The susc eptibility weighted images do not reveal any evidence for micro-hemorrhage. The bone marrow signal is within normal limits. Paranasal sinuses and mastoid air cells: Mild scattered paranasal sinus disease with high T2 signal p aranasal sinus mucosal thickening most pronounced in the maxillary sinuses. Visualized orbits: Orbital contents are intact. IMPRESSION: 1. No evidence of intracranial mass or acute/subacute infarct. 2. Minimal Nonspecific white matter changes, likely secondary to small vessel ischemic disease.
[2023-06-20 11:36] VITALS: BP 100/54; PULSE 93; TEMP 97.9
[2023-06-20] MEDS: PANTOPRAZOLE 40 MG TABLET PO SCH (11:51)
[2023-06-20 14:18] VITALS: RESP 18
--- NOTE | 2023-06-21 07:52 | P.DS ---
Providers Date of admission: 06/17/23 15:35 Attending physician: Caden Villafuerte Consults: 06/17/23 15:35 Consult Physician Routine Consulting Provider: Giovany Llanos Consult Reason/Comments: cva Do you want consulting provider notified?: Yes Primary care physician: Caden Villafuerte Hospital Course: Final Diagnosis Fall unclear cause, rule out stroke/TIA, neurological work up has been negative and all symptoms have resolved. Possible history of seizure. 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 Hx of chronic alcohol use Discharge Disposition Patient is stable for discharge home. He has been referred to neurology for outpatient follow up. Recommending possible event monitor to rule out cardiac arrhythmia and this was discussed with patient and can be addressed with PCP Dr. Villafuerte on follow up. Patient has been started on lipitor and aspirin 81 mg daily for primary stroke prevention on discharge. Hospital Course This is a 53-year-old male with medical history of tobacco use who came into the hospital by ambulance secondary to a syncopal spell. Patient was admitted under medicine with a consult placed to neurology to rule out stroke/TIA. Patient was out that evening was dropped off at home about 2:30 AM. Patient went down to the basement to get something and then the next he remembers he was on the floor. He does not remember falling. Patient's left side was numb could not talk cannot form words and was found by his roommate. Patient was brought in by ambulance. Patient had been feeling dizzy lightheaded for the last week but denies any complaints of vertigo has not had any chest pain and is not having any shortness of breath. Patient is alert but appears altered on admission. Patient had a negative blood alcohol level his urinalysis was positive for cocaine. EKG shows normal sinus rhythm CT of the head revealed no acute intracranial process. Patient a CT of the cervical spine which showed motion limited exam. Patient no evidence of cervical spine fracture but there was small area of multilevel degenerative disc disease. Patient had chest x-ray which showed increased airspace opacities in the right lung base correlate for developing pneumonia. Then he had a CT angiography of the head and neck which r evealed no evidence of dissection or cervical intracranial carotid arteries or vertebral arteries or any evidence of significant stenosis at the carotid bifurcation. There is no evidence of intracranial high-grade stenosis or intracranial aneurysm. Patient was not considered a candidate for tPA as he was outside of the window however a code stroke was activated. Patient was monitored on the medical floor and had improvement of his neurological symptoms. Brain MRI was done which reveals no evidence of intracranial mass or acute/subacute infarct. There is minimal nonspecific white matter changes, likely secondary to small vessel ischemic change. Echocardiogram reveals normal LV systolic and ventricular function, no significant valvular abnormalities, no evidence of pericardial effusion, normal aortic root and proximal ascending aorta. EEG was negative for epileptiform activity. Patient denies chest pain, chest pressure, shortness of breath. No dizziness, lightheadedness. Focal neurological exam is now negative. Patient will be discharged home with neurology follow up. Please see medication reconciliation for a list of current medications. Thank you for allowing us to participate in the care of this patient. The impression and plan of care has been dictated by Ángela Colindres Nurse Practitioner as directed. Dr. Everett MD I have performed a history and physical examination and medical decision making of this patient, discussed the same with the dictator, and agree with the dictators assessment and plan as written, documented as a scribe. Based on total visit time, I have performed more than 50% of this visit. Patient Condition at Discharge: Stable Plan - Discharge Summary Discharge Rx Participant: Yes New Discharge Prescriptions: New Aspirin 81 mg PO DAILY #30 tab Atorvastatin [Lipitor] 20 mg PO HS #30 tab Pantoprazole [Protonix] 40 mg PO AC-BRKFST #30 tab Continue Ibuprofen [Motrin] 800 mg PO QID PRN PRN Reason: Pain DULoxetine HCL [Cymbalta] 60 mg PO DAILY traZODone HCL 300 mg PO HS Atomoxetine HCl [Strattera] 40 mg PO DAILY Discharge Medication List Atomoxetine HCl [Strattera] 40 mg PO DAILY 06/17/23 [History] DULoxetine HCL [Cymbalta] 60 mg PO DAILY 06/17/23 [History] Ibuprofen [Motrin] 800 mg PO QID PRN 06/17/23 [History] traZODone HCL 300 mg PO HS 06/17/23 [History] Aspirin 81 mg PO DAILY #30 tab 06/20/23 [Rx] Atorvastatin [Lipitor] 20 mg PO HS #30 tab 06/20/23 [Rx] Pantoprazole [Protonix] 40 mg PO AC-BRKFST #30 tab 06/20/23 [Rx] Follow up Appointment(s)/Referral(s): Caden Villafuerte MD [Primary Care Provider] - 1-2 days Richard Wilhelm MD [REFERRING] - 1 Week Alba Monique MD [Medical Doctor] - 1 Week Giovany Bailey MD [STAFF PHYSICIAN] - 1 Week Hema Wheat DO [STAFF PHYSICIAN] - 1 Week Patient Instructions/Handouts: Ischemic Stroke (DC) Activity/Diet/Wound Care/Special Instructions: Neurology follows up with either Dr Monique, Dr Bailey, Dr Wheat, Dr Wilhelm in 1 to 2 weeks. Continue on lipitor and aspirin daily for primary stroke prevention Discharge Disposition: HOME SELF-CARE
== END 2023-06-20 15:06 | disposition home or self-care (01) | DRG 351 ==
LOC: EC 12:28 → SUPCPDRO 12:28 → 3SCARD 15:35
PROVIDERS: ADMIT Family Medicine; ATTEND Family Medicine
DX: T79.6XXA Traumatic ischemia of muscle, initial encounter (principal); F14.10 Cocaine abuse, uncomplicated; F32.A Depression, unspecified; E78.5 Hyperlipidemia, unspecified; S01.411A Laceration without foreign body of right cheek and temporomandibular area, initial encounter; F17.290 Nicotine dependence, other tobacco product, uncomplicated; F17.210 Nicotine dependence, cigarettes, uncomplicated; F90.9 Attention-deficit hyperactivity disorder, unspecified type; R27.0 Ataxia, unspecified; W18.30XA Fall on same level, unspecified, initial encounter; Y92.198 Other place in other specified residential institution as the place of occurrence of the external cause; Z86.19 Personal history of other infectious and parasitic diseases; Z79.899 Other long term (current) drug therapy; Z88.8 Allergy status to other drugs, medicaments and biological substances; Z86.718 Personal history of other venous thrombosis and embolism; Z71.6 Tobacco abuse counseling; Z86.73 Personal history of transient ischemic attack (TIA), and cerebral infarction without residual deficits; Z86.69 Personal history of other diseases of the nervous system and sense organs
CPT/HCPCS: 36415; 70450; 70496; 70498; 70551; 71045; 72125; 80053; 80061; 80306; 80320; 81003; 82140; 82550; 83036; 83605; 84484; 85025; 85610; 85730; 93005; 93306; 95816; 96361; 96374; 99291

== ENCOUNTER → 2023-07-05 | Outpatient (CLI) | payer OTHER ==
--- NOTE | 2023-07-05 18:31 | MR ---
EXAMINATION TYPE: MR knee RT wo con DATE OF EXAM: 07/05/2023 COMPARISON: None HISTORY: Right knee pain, locking and swelling TECHNIQUE: Multiplanar, multisequence imaging of the right knee is performed without IV contrast. FINDINGS: There is no bone contusion or fracture. There is a small focal area of abnormal signal intensity in the anterior medial femoral condyle. Ther e is focal thinning of the adjacent articular cartilage and abnormal signal intensity within the cart ilage consistent with chondromalacia. There is a small joint effusion and a tiny Rose's cyst. The cruciate and collateral ligaments are intact. There is a horizontal tear of the body and posterior horn of the medial meniscus. The lateral meniscus is intact. The patellar and quadriceps tendons are intact. IMPRESSION: 1. Tear of the medial meniscus as described above. 2. Small joint effusion and tiny Rose's cyst. 3. Mild degenerative changes in the medial compartment of the knee. 4. No bone contusion or fracture.
== END | disposition home or self-care (01) ==
LOC: RADMRIMAIN 15:54
PROVIDERS: ATTEND Orthopaedic Surgery
DX: M17.11 Unilateral primary osteoarthritis, right knee (principal); M71.21 Synovial cyst of popliteal space [Baker], right knee; M23.321 Other meniscus derangements, posterior horn of medial meniscus, right knee

== ENCOUNTER 2023-07-10 10:20 | Emergency (ER) | payer OTHER ==
[2023-07-10 10:39] VITALS: RESP 18
[2023-07-10] MEDS: DEXAMETHASONE SOD PHOSPHATE 4 MG/ML 1 ML VIAL IM STA (10:50)
[2023-07-10] MEDS: ACETAMINOPHEN TAB 325 MG TAB PO STA (10:50)
--- NOTE | 2023-07-10 11:15 | ED ---
Back Pain HPI - General Chief Complaint: Back Pain/Injury Stated Complaint: right back pain Time Seen by Provider: 07/10/23 11:12 Source: patient, RN notes reviewed Limitations: no limitations - History of Present Illness Initial Comments: 53-year-old male presented to the ER with a chief complaint of back pain. Patient reports an extensive history of lumbar back surgeries about 5 years ago. Patient reports this morning she was stretching and felt a pop in his lower back. He states since then he has been having a shooting pain down his right leg and having difficulty walking due to the pain. He denies any saddle paresthesias, bowel or bladder incontinence or fevers. Patient does have a past medical history significant of IV drug abuse. He does report the pain is worse on the right side and his lumbar spine has been tender to touch for the past day. He denies any headache, dizziness, nausea, vomiting, chest pain, shortness of breath, abdominal pain or peripheral edema. - Related Data Home Medications Medication Instructions Recorded Confirmed Atomoxetine HCl [Strattera] 40 mg PO DAILY 06/17/23 06/17/23 DULoxetine HCL [Cymbalta] 60 mg PO DAILY 06/17/23 06/17/23 Ibuprofen [Motrin] 800 mg PO QID PRN 06/17/23 06/17/23 traZODone HCL 300 mg PO HS 06/17/23 06/17/23 Previous Rx's Medication Instructions Recorded Aspirin 81 mg PO DAILY #30 tab 06/20/23 Atorvastatin [Lipitor] 20 mg PO HS #30 tab 06/20/23 Pantoprazole [Protonix] 40 mg PO AC-BRKFST #30 tab 06/20/23 predniSONE 50 mg PO DAILY #5 tab 07/10/23 Allergies Allergy/AdvReac Type Severity Reaction Status Date / Time sertraline [From Zoloft] AdvReac Rash/Hives Verified 07/10/23 10:23 Review of Systems ROS Statement: Those systems with pertinent positive or pertinent negative responses have been documented in the HPI. ROS Other: All systems not noted in ROS Statement are negative. Past Medical History Past Medical History: Skin Disorder Additional Past Medical History / Comment(s): Lyme, cellulitis History of Any Multi-Drug Resistant Organisms: None Reported Past Surgical History: No Surgical Hx Reported, Back Surgery Additional Past Surgical History / Comment(s): Right leg phlebectomy. Back abscess and surgery with 6 bolts, 2 titanium cages, and 2 plastic discs in 2019 Past Anesthesia/Blood Transfusion Reactions: No Reported Reaction Past Psychological History: Anxiety, Depression Smoking Status: Current every day smoker, Vaper Past Alcohol Use History: Abuse, Daily, Heavy Past Drug Use History: Cocaine, Prescription Drug Abuse General Exam Limitations: no limitations General appearance: alert, in no apparent distress Head exam: Present: atraumatic, normocephalic, normal inspection Neck exam: Present: normal inspection. Absent: tenderness, meningismus, lymphadenopathy Respiratory exam: Present: normal lung sounds bilaterally. Absent: respiratory distress, wheezes, rales, rhonchi, stridor Cardiovascular Exam: Present: regular rate, normal rhythm, normal heart sounds. Absent: systolic murmur, diastolic murmur, rubs, gallop, clicks Extremities exam: Present: normal inspection, full ROM, normal capillary refill. Absent: tenderness, pedal edema, joint swelling, calf tenderness Back exam: Present: tenderness (Lumbar spine. 3 vertical healed surgical incisions present.), other (Positive straight leg raise bilaterally. Equal lower extremity strength. 2+ bilateral dorsalis pedis pulses. No rashes or bruising present.) Neurological exam: Present: alert, oriented X3, CN II-XII intact Course Vital Signs 07/10/23 07/10/23 07/10/23 10:21 12:07 13:06 Temperature 97.8 F 98.2 F 98.1 F Pulse Rate 114 H 77 82 Respiratory 18 18 18 Rate Blood Pressure 116/77 113/71 118/79 O2 Sat by Pulse 98 100 100 Oximetry Medical Decision Making - Medical Decision Making Was pt. sent in by a medical professional or institution (, PA, RISK MANAGEMENT SPECIALIST, urgent care, hospital, or [facility]...) When possible be specific @ -No Did you speak to anyone other than the patient for history (EMS, parent, family, police, friend...)? What history was obtained from this source @ -No Did you review nursing and triage notes (agree or disagree)? Why? @ -I reviewed and agree with nursing and triage notes Were old charts reviewed (outside hosp., previous admission, EMS record, old EKG, old radiological studies, urgent care reports/EKG's, [facility] records)? Report findings @ -No old charts were reviewed Differential Diagnosis (chest pain, altered mental status, abdominal pain women, abdominal pain men, vaginal bleeding, weakness, fever, dyspnea, syncope, headache, dizziness, GI bleed, back pain, seizure, CVA, palpatations, mental health, musculoskeletal)? @ -Differential Back Pain:Strain, zoster, cauda equina syndrome, epidural abscess, vertebral osteomyelitis, discitis, fracture, subluxation, disc herniation, DJD, spinal stenosis, dissection, AAA, pancreatitis, peptic ulcer disease, pyelonephritis, kidney stone, this is not meant to be an all-inclusive list. EKG interpreted by me (3pts min.). @ -None X-rays interpreted by me (1pt min.). @ -None done CT interpreted by me (1pt min.). @ -CT lumbar spine significant for L3-L4 disc bulge with superimposed right central protrusion with mild to moderate canal stenosis. L1-L2 right disc extrusion with superior and inferior migration of disc. Hardware intact. U/S interpreted by me (1pt. min.). @ -None done What testing was considered but not performed or refused? (CT, X-rays, U/S, labs)? Why? @ -None What meds were considered but not given or refused? Why? @ -None Did you discuss the management of the patient with other professionals (professionals i.e. , PA, RISK MANAGEMENT SPECIALIST, lab, RT, psych nurse, social media content specialist, nascar racer, teacher, intelligence officer, manager case management)? Give summary @ -No Was smoking cessation discussed for >3mins.? @ -No Was critical care preformed (if so, how long)? @ -No Were there social determinants of health that impacted care today? How? (Homelessness, low income, unemployed, alcoholism, drug addiction, transportation, low edu. Level, literacy, decrease access to med. care, intermediate, rehab)? @ -No Was there de-escalation of care discussed even if they declined (Discuss DNR or withdrawal of care, Hospice)? DNR status @ -No What co-morbidities impacted this encounter? (DM, HTN, Smoking, COPD, CAD, Cancer, CVA, ARF, Chemo, Hep., AIDS, mental health diagnosis, sleep apnea, morbid obesity)? @ -Smoker Was patient admitted / discharged? Hospital course, mention meds given and route, prescriptions, significant lab abnormalities, going to OR and other pertinent info. @ -Discharged. 53 year old male presenting to the ER with a chief complaint of back pain. History and physical exam completed. Vitals stable. Patient in no signs od acute distress and non toxic appearing. No red flag back pain symptoms concerning of cauda equina syndrome. Pain with bilateral straight leg raise. Bilateral lower extremity neurovascular intact. CT obtained significant for L3- L4 bulging disc at L1-L2 right disc extrusion. Patient received IM Tylenol for pain control in the ER. Upon reevaluation, patient no signs of acute distress and resting comfortably in exam room. Results discussed with patient, all questions answered. Advise follow-up with orthopedics, referral given. Prednisone prescribed. Strict return parameters discussed. Patient discharged in stable condition. Patient verbally expressed understanding and agreement with care plan. Case discussed with ED attending, Dr. Glass. Undiagnosed new problem with uncertain prognosis? @ -No Drug Therapy requiring intensive monitoring for toxicity (Heparin, Nitro, Insulin, Cardizem)? @ -No Were any procedures done? @ -No Diagnosis/symptom? @ -Bulging lumbar disc Acute, or Chronic, or Acute on Chronic? @ -Acute Uncomplicated (without systemic symptoms) or Complicated (systemic symptoms)? @ -Uncomplicated Side effects of treatment? @ -No Exacerbation, Progression, or Severe Exacerbation? @ -No Poses a threat to life or bodily function? How? (Chest pain, [place], CA, pneumonia, PE, COPD, DKA, ARF, appy, cholecystitis, CVA, Diverticulitis, Homicidal, Suicidal, threat to staff... and all critical care pts) @ -No - Radiology Data Radiology results: report reviewed, image reviewed Disposition Clinical Impression: Bulging lumbar disc Disposition: HOME SELF-CARE Condition: Stable Instructions (If sedation given, give patient instructions): Acute Low Back Pain (ED) Additional Instructions: Follow-up with orthopedics. Return to the ER for any new or worsening symptoms. Prescriptions: predniSONE 50 mg PO DAILY #5 tab Is patient prescribed a controlled substance at d/c from ED?: No Referrals: Caden Villafuerte MD [Primary Care Provider] - 1-2 days Sarwat Durant DO [Doctor of Osteopathic Medicine] - 1-2 days Time of Disposition: 12:57
--- NOTE | 2023-07-10 12:25 | CT ---
EXAMINATION TYPE: CT lumbar spine wo con CT DLP: 782 mGycm, Automated exposure control for dose reduction was used. DATE OF EXAM: 07/10/2023 12:06 PM COMPARISON: None. CLINICAL INDICATION:Male, 53 years old with history of back pain hx fusion; TECHNIQUE: Multiple axial images were obtained from the midportion of T11 through the sacroiliac ted nts. Soft tissue and bone windows in coronal and sagittal planes were obtained and reviewed. Contrast used: mL of , (None, if empty). Oral contrast used: (None, if empty). FINDINGS: Alignment: There are 5 lumbar type vertebral bodies within normal alignment. Bone: Multilevel degeneration changes with osteophyte formation and facet joint arthropathy. Fixatio n hardware at L3-L4 and L5 appears intact and pedicles appear within appropriate position. Discectomy at L2 4 L5 and L5-S1. Additional laminectomy changes are thought to be at L4 and L5. There is good o sseous fusion of the posterior elements on the right. Discs: T12-L1: No spinal canal or neural foraminal stenosis is identified. L1-L2: Right disc extrusion with inferior and superior migration suggested superior migration of 8 mm inferior migration of 7 mm of disc material. L2-L3: No spinal canal or neural foraminal stenosis is identified. L3-L4: Disc bulge with superimposed right central protrusion series 202 image 52 which [id number] te spinal canal stenosis. L4-L5: Streak artifact limits evaluation at this level. Spinal canal appears patent. The neural raisa en are patent. L5-S1: Streak artifact limits evaluation at this level. Spinal canal appears patent. The neural raisa en are patent. Other: None IVC filter appears in appropriate position. IMPRESSION: 1. L3-L4 disc bulge with superimposed right central protrusion with mild to moderate spinal canal st enosis. Consider further evaluation with MRI lumbar spine. 2. L1-L2 Right disc extrusion with superior and inferior migration of disc material. Consider furthe r evaluation with MRI lumbar spine. 3. Postsurgical changes with hardware intact.
[2023-07-10 13:30] VITALS: BP 118/79; PULSE 82; TEMP 98.1
== END 2023-07-10 13:08 | disposition home or self-care (01) ==
LOC: EC 10:20
DX: M51.36 Other intervertebral disc degeneration, lumbar region (principal); F17.290 Nicotine dependence, other tobacco product, uncomplicated; Z88.8 Allergy status to other drugs, medicaments and biological substances
CPT/HCPCS: 72131; 99283; 96372; J1100

== ENCOUNTER 2023-08-27 15:09 | Emergency (ER) | payer OTHER ==
--- NOTE | 2023-08-27 15:17 | ED ---
General Adult HPI - General Chief complaint: Neck Pain/Injury Stated complaint: back pain Time Seen by Provider: 08/27/23 15:17 Source: patient, RN notes reviewed Mode of arrival: ambulatory Limitations: no limitations - History of Present Illness Initial comments: This is a 53-year-old male with a past medical history of chronic back pain presents emergency department chief complaint of exacerbated lumbar back pain. Patient has a known history of lumbar herniation as seen on CT imaging previous ER visit. Patient states that he has an appointment scheduled with card services specialist on September 10 for surgical intervention bulging disc. Patient has meloxicam, gabapentin, and motrin with minimal relief. Denies any recent trauma or falls. Denies saddle anesthesias, loss of bladder or bowel continence. Denies fevers, chills. - Related Data Home Medications Medication Instructions Recorded Confirmed Atomoxetine HCl [Strattera] 40 mg PO DAILY 06/17/23 08/01/23 DULoxetine HCL [Cymbalta] 60 mg PO DAILY 06/17/23 08/01/23 Ibuprofen [Motrin] 800 mg PO QID PRN 06/17/23 08/01/23 traZODone HCL 300 mg PO HS 06/17/23 08/01/23 methocarbamoL 750 mg PO DAILY 08/01/23 08/01/23 methylPREDNISolone Dose Pack 4 mg PO DIRECTED 08/01/23 08/01/23 [Medrol Dose Pack] Previous Rx's Medication Instructions Recorded Aspirin 81 mg PO DAILY #30 tab 06/20/23 predniSONE 50 mg PO DAILY #5 tab 08/27/23 Allergies Allergy/AdvReac Type Severity Reaction Status Date / Time sertraline [From Zoloft] AdvReac Rash/Hives Verified 08/01/23 13:10 Review of Systems ROS Statement: Those systems with pertinent positive or pertinent negative responses have been documented in the HPI. ROS Other: All systems not noted in ROS Statement are negative. Past Medical History Past Medical History: CVA/TIA, GERD/Reflux, Hyperlipidemia, Hypertension, Osteoarthritis (OA), Skin Disorder Additional Past Medical History / Comment(s): Lyme, cellulitis, hospitalization at [facility] 06/17/23-06/20/23 for TIA & neuro workup, chronic back pain, right knee pain/injury April 2023 History of Any Multi-Drug Resistant Organisms: C-DIFF Date of last positivie culture/infection: 2019 MDRO Source:: stool Past Surgical History: Back Surgery Additional Past Surgical History / Comment(s): Right leg phlebectomy. Back abscess and surgery with 6 bolts, 2 titanium cages, and 2 plastic discs in 2019. Past Anesthesia/Blood Transfusion Reactions: No Reported Reaction Past Psychological History: ADD/ADHD, Anxiety, Depression, Panic Disorder Smoking Status: Current every day smoker, Vaper General Exam Limitations: no limitations General appearance: alert, in no apparent distress Head exam: Present: atraumatic, normocephalic, normal inspection Eye exam: Present: normal appearance, PERRL, EOMI. Absent: scleral icterus, conjunctival injection, periorbital swelling ENT exam: Present: normal exam, mucous membranes moist Neck exam: Present: normal inspection. Absent: tenderness, meningismus, lymphadenopathy Respiratory exam: Present: normal lung sounds bilaterally. Absent: respiratory distress, wheezes, rales, rhonchi, stridor Cardiovascular Exam: Present: regular rate, normal rhythm, normal heart sounds. Absent: systolic murmur, diastolic murmur, rubs, gallop, clicks GI/Abdominal exam: Present: soft, normal bowel sounds. Absent: distended, tenderness, guarding, rebound, rigid Back exam: Present: tenderness (posterior lumbar spine), paraspinal tenderness. Absent: full ROM, CVA tenderness (R), CVA tenderness (L) Neurological exam: Present: alert, oriented X3, CN II-XII intact Course Vital Signs 08/27/23 08/27/23 08/27/23 15:11 16:57 17:56 Temperature 97.9 F 98.2 F Pulse Rate 110 H 91 86 Respiratory 20 18 Rate Blood Pressure 132/69 134/79 145/78 O2 Sat by Pulse 97 97 97 Oximetry Medical Decision Making - Medical Decision Making Was pt. sent in by a medical professional or institution (, PA, STOGY ROLLER, urgent ca re, hospital, or intermediate...) When possible be specific @ -No Did you speak to anyone other than the patient for history (EMS, parent, family, police, friend...)? What history was obtained from this source @ -No Did you review nursing and triage notes (agree or disagree)? Why? @ -I reviewed and agree with nursing and triage notes Were old charts reviewed (outside hosp., previous admission, EMS record, old EKG, old radiological studies, urgent care reports/EKG's, intermediate records)? Report findings @ -reviewed previous CT results which revealed patient has herniated disks of the lumbar spine. Differential Diagnosis (chest pain, altered mental status, abdominal pain women, abdominal pain men, vaginal bleeding, weakness, fever, dyspnea, syncope, headache, dizziness, GI bleed, back pain, seizure, CVA, palpatations, mental health, musculoskeletal)? @ -Differential Back Pain: Strain, zoster, cauda equina syndrome, epidural abscess, vertebral osteomyelitis, discitis, fracture, subluxation, disc herniation, DJD, spinal stenosis, dissection, AAA, pancreatitis, peptic ulcer disease, pyelonephritis, kidney stone, this is not meant to be an all-inclusive list. EKG interpreted by me (3pts min.). @ -None X-rays interpreted by me (1pt min.). @ -None done CT interpreted by me (1pt min.). @ -None done U/S interpreted by me (1pt. min.). @ -None done What testing was considered but not performed or refused? (CT, X-rays, U/S, labs)? Why? @ -xray and ct considered but deferred at this time due to patient not expressing red flag symptoms, additionally no recent or new trauma since recent image completed. What meds were considered but not given or refused? Why? @ -None Did you discuss the management of the patient with other professionals (professionals i.e. , PA, STOGY ROLLER, lab, RT, psych nurse, case management social worker, marine steamfitter, teacher, bank compliance officer, employment case manager)? Give summary @ -No Was smoking cessation discussed for >3mins.? @ -No Was critical care preformed (if so, how long)? @ -No Were there social determinants of health that impacted care today? How? (Homelessness, low income, unemployed, alcoholism, drug addiction, transportation, low edu. Level, literacy, decrease access to med. care, [facility], rehab)? @ -No Was there de-escalation of care discussed even if they declined (Discuss DNR or withdrawal of care, Hospice)? DNR status @ -No What co-morbidities impacted this encounter? (DM, HTN, Smoking, COPD, CAD, Cancer, CVA, ARF, Chemo, Hep., AIDS, mental health diagnosis, sleep apnea, morbid obesity)? @ -None Was patient admitted / discharged? Hospital course, mention meds given and route, prescriptions, significant lab abnormalities, going to OR and other pertinent info. @ -Discharge. 53-year-old male with acute on chronic lumbar back pain. Patient has positive straight leg test bilaterally. There are no red flag symptoms concerning for further imaging. Patient is provided with pain medication which is markedly improved symptoms. He is provided with a starter pack of Tylenol 3 instructed to follow-up with his primary care provider as scheduled tomorrow for further evaluation. All questions answered at bedside and strict return parameters discussed with patient is verbalized understanding. discussed with Dr. Douglas. Undiagnosed new problem with uncertain prognosis? @ -No Drug Therapy requiring intensive monitoring for toxicity (Heparin, Nitro, Insulin, Cardizem)? @ -No Were any procedures done? @ -No Diagnosis/symptom? @ -lumbar back pain Acute, or Chronic, or Acute on Chronic? @ -Acute on chronic Uncomplicated (without systemic symptoms) or Complicated (systemic symptoms)? @ -uncomplicated Side effects of treatment? @ -No Exacerbation, Progression, or Severe Exacerbation? @ -No Poses a threat to life or bodily function? How? (Chest pain, [place], [place], pneumonia, PE, COPD, DKA, ARF, appy, cholecystitis, CVA, Diverticulitis, Homicidal, Suicidal, threat to staff... and all critical care pts) @ -No Disposition Clinical Impression: Chronic back pain Disposition: HOME SELF-CARE Condition: Good Instructions (If sedation given, give patient instructions): Chronic Back Pain (DC) Additional Instructions: Return to the emergency department if your symptoms worsen or improve. recommend you follow up with your primary care provider tomorrow as scheduled for further evaluation. Prescriptions: predniSONE 50 mg PO DAILY #5 tab Is patient prescribed a controlled substance at d/c from ED?: No Referrals: Caden Villafuerte MD [Primary Care Provider] - 1-2 days Time of Disposition: 17:44
[2023-08-27] MEDS: KETOROLAC 15 MG/ML 1 ML VIAL IVP STA (15:39)
[2023-08-27] MEDS: ORPHENADRINE 30 MG/ML 2 ML VIAL IVP STA (15:43)
[2023-08-27] MEDS: MORPHINE SULFATE 4 MG/ML SYRINGE IVP STA (17:09)
[2023-08-27] MEDS: ACET/COD 300 MG/30 MG STARTER PACK 6 TAB BTL PO STA (17:52)
[2023-08-27 17:58] VITALS: BP 145/78; PULSE 86; RESP 18; TEMP 98.2
== END 2023-08-27 17:58 | disposition home or self-care (01) ==
LOC: EC 15:09
DX: G89.29 Other chronic pain (principal); M54.50 Low back pain, unspecified; Z88.8 Allergy status to other drugs, medicaments and biological substances; F17.290 Nicotine dependence, other tobacco product, uncomplicated
CPT/HCPCS: 99283; 96374; 96375 ×2; J2270; J2360; J1885

== ENCOUNTER 2023-10-05 09:00 | Day surgery (SDC) | payer OTHER ==
[2023-10-05] MEDS ORDERED: LACTATED RINGERS 1,000 ML BAG ONE (10:00)
[2023-10-05] MEDS ORDERED: EPINEPHrine (PF) 1 MG/ML AMP ONE (10:00)
[2023-10-05] MEDS ORDERED: SODIUM CHLORIDE 0.9% IRRIG 3,000 ML BAG IRRIGATION ONE (10:00)
[2023-10-05] MEDS ORDERED: DEXAMETHASONE SOD PHOSPHATE 4 MG/ML 1 ML VIAL ONE (10:05)
[2023-10-05] MEDS ORDERED: ONDANSETRON 4 MG/2 ML VIAL ONE (10:06)
[2023-10-05] MEDS ORDERED: MIDAZOLAM 2 MG/2 ML VIAL ONE (10:31)
[2023-10-05] MEDS ORDERED: SUCCINYLCHOLINE CHLORIDE 200 MG/10 ML VIAL IV ONE (10:31)
[2023-10-05] MEDS ORDERED: fentaNYL (PF) 50 MCG/ML 2 ML AMP ONE (10:31)
[2023-10-05] MEDS ORDERED: KETOROLAC 15 MG/ML 1 ML VIAL ONE (10:31)
[2023-10-05] MEDS ORDERED: PROPOFOL 10 MG/ML 20 ML VIAL IV ONE (10:31)
[2023-10-05] MEDS ORDERED: LIDOCAINE 1% INJ 10MG/ML (20 ML MDV) ONE (10:31)
[2023-10-05] MEDS ORDERED: HYDROmorphone 0.5 MG/0.5 ML SYRINGE ONE ×2 (11:37→11:49)
[2023-10-05] MEDS ORDERED: HYDROcodone/APAP 5-325MG 1 EACH TAB ONE (12:40)
--- NOTE | 2023-10-12 15:55 | OP ---
OPERATIVE REPORT DATE OF SERVICE : 10/05/2023 PREOPERATIVE DIAGNOSIS: Right knee internal derangement. POSTOPERATIVE DIAGNOSIS: Right knee posterior medial meniscal tear along with grade 3-4 chondral injury, medial femoral condyle. PROCEDURE: Right knee arthroscopic partial medial meniscectomy and microfracture, medial femoral condyle. ANESTHESIA: General. PREP: DuraPrep. INDICATION FOR PROCEDURE: The patient is a 53-year-old male, who presents with progressive right knee pain and mechanical symptoms after previous twisting injury despite conservative measures. A discussion of the risks and benefits of operative intervention versus continued conservative measures was made with the patient. He opted to proceed with surgery. Operative risks to include infection, neurovascular injury, development of blood clot, possible incomplete resolution of symptoms, possible worsening of symptoms and need for subsequent procedures was discussed. Informed consent was obtained. DESCRIPTION OF PROCEDURE: The patient was brought to the operating room and after induction of general anesthesia, I examined the right knee. Collaterals were stable, Modesta was negative, posterior drawer was negative. The right lower extremity was prepped and draped in a normal fashion. A superior lateral portal was made through a 3 mm skin incision superior and lateral to the patella. This was used for outflow. A lateral portal was made through a 5 mm vertical skin incision lateral to the patellar tendon above the level of joint line. Diagnostic arthroscopy was performed. A medial portal was made through a similar incision medial to the patellar tendon above the level of joint line. On inspection of medial compartment, he was noted to have a complex tear involving the posterior horn of the medial meniscus in the white-white junction. This was debrided back to a stable base with straight baskets and a motorized shaver. The remaining medial meniscus appeared to be stable and intact. A grade 3-4 chondral injury measuring approximately 8 x 8 mm was noted along the distal medial portion of the medial femoral condyle. Microfracture was performed utilizing a PowerPick reaching the subchondral surface down to the bone marrow elements. On inspection of the notch, the anterior cruciate ligament appeared to be intact. On inspection of the lateral compartment, no significant meniscal or cartilage pathology was noted. On inspection of the patellofemoral articulation, there was minimal chondral fibrillation. The gutters were cleared of debris. The knee was then thoroughly irrigated. The portals were closed with Steri-Strips. A sterile dressing was applied in addition to a compression stocking. The patient was then awoken from general anesthesia and transferred to the recovery room in good condition. Blood loss was estimated at 10 mL. No complications were incurred. Sponge and needle counts were correct at the end of the case. MMODL / IJN: [id number] /
== END 2023-10-05 14:02 ==
LOC: OR 09:00
PROVIDERS: ATTEND Orthopaedic Surgery
DX: S83.241A Other tear of medial meniscus, current injury, right knee, initial encounter (principal); M22.41 Chondromalacia patellae, right knee; E78.5 Hyperlipidemia, unspecified; J44.9 Chronic obstructive pulmonary disease, unspecified; F17.210 Nicotine dependence, cigarettes, uncomplicated; K21.9 Gastro-esophageal reflux disease without esophagitis; X58.XXXA Exposure to other specified factors, initial encounter; Z86.73 Personal history of transient ischemic attack (TIA), and cerebral infarction without residual deficits; Z88.8 Allergy status to other drugs, medicaments and biological substances; Z79.02 Long term (current) use of antithrombotics/antiplatelets; Z79.899 Other long term (current) drug therapy

== ENCOUNTER 2023-11-20 11:18 | Emergency (ER) | payer OTHER ==
[2023-11-20 11:21] VITALS: BP 117/80; PULSE 72; RESP 16; TEMP 97.6
--- NOTE | 2023-11-20 11:38 | ED ---
Extremity Problem HPI - General Chief complaint: Extremity Problem,Nontraumatic Stated complaint: L hip pain Time Seen by Provider: 11/20/23 11:31 Source: patient, RN notes reviewed Mode of arrival: ambulatory Limitations: no limitations - History of Present Illness Initial comments: This is a 53-year-old male who presents emergency department with a chief complaint of left hip pain that has been persistent over the past week. Patient denies any known traumas or injuries to the left hip. He states that he had a right knee arthroscopy completed a few weeks ago and a back surgery completed few this ago as well. He states that it feels like his hip is almost out of its socket. He denies abdominal pain, loss of bladder or bowel continence, saddle anesthesias, urinary or bowel complaints. He denies chest pain, shortness of breath, difficulty breathing. No other acute complaints at this time. - Related Data Home Medications Medication Instructions Recorded Confirmed Atomoxetine HCl [Strattera] 40 mg PO DAILY 06/17/23 08/01/23 DULoxetine HCL [Cymbalta] 60 mg PO DAILY 06/17/23 08/01/23 Ibuprofen [Motrin] 800 mg PO QID PRN 06/17/23 08/01/23 traZODone HCL 300 mg PO HS 06/17/23 08/01/23 methocarbamoL 750 mg PO DAILY 08/01/23 08/01/23 methylPREDNISolone Dose Pack 4 mg PO DIRECTED 08/01/23 08/01/23 [Medrol Dose Pack] Previous Rx's Medication Instructions Recorded Aspirin 81 mg PO DAILY #30 tab 06/20/23 predniSONE 50 mg PO DAILY #5 tab 08/27/23 predniSONE 50 mg PO DAILY #5 tab 11/20/23 Allergies Allergy/AdvReac Type Severity Reaction Status Date / Time sertraline [From Zoloft] AdvReac Rash/Hives Verified 11/20/23 11:21 Review of Systems ROS Statement: Those systems with pertinent positive or pertinent negative responses have been documented in the HPI. ROS Other: All systems not noted in ROS Statement are negative. Past Medical History Past Medical History: CVA/TIA, GERD/Reflux, Hyperlipidemia, Hypertension, Osteoarthritis (OA), Skin Disorder Additional Past Medical History / Comment(s): Lyme, cellulitis, hospitalization at [facility] 06/17/23-06/20/23 for TIA & neuro workup, chronic back pain, right knee pain/injury April 2023 History of Any Multi-Drug Resistant Organisms: C-DIFF Date of last positivie culture/infection: 2018 MDRO Source:: stool Past Surgical History: Back Surgery Additional Past Surgical History / Comment(s): Right leg phlebectomy. Back abscess and surgery with 6 bolts, 2 titanium cages, and 2 plastic discs in 2019. Past Anesthesia/Blood Transfusion Reactions: No Reported Reaction Past Psychological History: ADD/ADHD, Anxiety, Depression, Panic Disorder Smoking Status: Current every day smoker, Vaper General Exam Limitations: no limitations General appearance: alert, in no apparent distress ENT exam: Present: normal exam, mucous membranes moist Neck exam: Present: normal inspection. Absent: tenderness, meningismus, lymphadenopathy Respiratory exam: Present: normal lung sounds bilaterally. Absent: respiratory distress, wheezes, rales, rhonchi, stridor Cardiovascular Exam: Present: regular rate, normal rhythm, normal heart sounds. Absent: systolic murmur, diastolic murmur, rubs, gallop, clicks GI/Abdominal exam: Present: soft, normal bowel sounds. Absent: distended, tenderness, guarding, rebound, rigid Left Hip exam: Present: normal inspection, tenderness (anterior hip). Absent: swelling, abrasion, ecchymosis Gait: observed and normal Back exam: Present: normal inspection Skin exam: Present: warm, dry, intact, normal color. Absent: rash Course Vital Signs 11/20/23 11:19 Temperature 97.6 F Pulse Rate 72 Respiratory 16 Rate Blood Pressure 117/80 O2 Sat by Pulse 96 Oximetry Medical Decision Making - Medical Decision Making Was pt. sent in by a medical professional or institution (, PA, INDIRECT FIRE INFANTRYMAN, urgent care, hospital, or correction...) When possible be specific @ -No Did you speak to anyone other than the patient for history (EMS, parent, family, police, friend...)? What history was obtained from this source @ -No Did you review nursing and triage notes (agree or disagree)? Why? @ -I reviewed and agree with nursing and triage notes Were old charts reviewed (outside hosp., previous admission, EMS record, old EKG, old radiological studies, urgent care reports/EKG's, correction records)? Report findings @ -No old charts were reviewed Differential Diagnosis (chest pain, altered mental status, abdominal pain women, abdominal pain men, vaginal bleeding, weakness, fever, dyspnea, syncope, headach e, dizziness, GI bleed, back pain, seizure, CVA, palpatations, mental health, musculoskeletal)? @ -Differential Musculoskeletal Muscular strain, contusion, ligament sprain, fracture, arthritis, septic arthritis, bursitis, cellulitis, muscle spasm, nerve compression, DVT, arterial occlusion, herpes zoster, electrolyte abnormality, tumor.... This is not meant to be in all inclusive list EKG interpreted by me (3pts min.). @ -None X-rays interpreted by me (1pt min.). @ -X-ray of the left hip and AP pelvis reveals no acute osseous abnormality left hip, hardware of the lumbar spine intact. CT interpreted by me (1pt min.). @ -None done U/S interpreted by me (1pt. min.). @ -None done What testing was considered but not performed or refused? (CT, X-rays, U/S, labs)? Why? @ -None What meds were considered but not given or refused? Why? @ -None Did you discuss the management of the patient with other professionals (professionals i.e. , PA, INDIRECT FIRE INFANTRYMAN, lab, RT, psych nurse, social work therapist, tax lawyer, teacher, air intelligence officer, business case analyst)? Give summary @ -No Was smoking cessation discussed for >3mins.? @ -No Was critical care preformed (if so, how long)? @ -No Were there social determinants of health that impacted care today? How? (Homelessness, low income, unemployed, alcoholism, drug addiction, transportation, low edu. Level, literacy, decrease access to med. care, longterm, rehab)? @ -No Was there de-escalation of care discussed even if they declined (Discuss DNR or withdrawal of care, Hospice)? DNR status @ -No What co-morbidities impacted this encounter? (DM, HTN, Smoking, COPD, CAD, Cancer, CVA, ARF, Chemo, Hep., AIDS, mental health diagnosis, sleep apnea, morbid obesity)? @ -None Was patient admitted / discharged? Hospital course, mention meds given and route, prescriptions, significant lab abnormalities, going to OR and other pertinent info. @ -Discharge. 53-year-old male with left hip pain. Patient has full mobility and is able to bear weight appropriately. Patient's majority of pain is located over the anterior hip. There are no neurovascular or muscular deficits on examination. X-ray negative for acute process. Patient states that he has Motrin 800s that he takes at home for chronic pain and states that this has been alleviating symptoms and he reported to the emergency department to rule out if there was potential acute injury. Patient was provided with dose of steroids to alleviate inflammation. All questions answered at bedside and strict return parameters as the patient has verbalized understanding. Case discussed with Dr. Merlos. Undiagnosed new problem with uncertain prognosis? @ -No Drug Therapy requiring intensive monitoring for toxicity (Heparin, Nitro, Insulin, Cardizem)? @ -No Were any procedures done? @ -No Diagnosis/symptom? @ -Left hip pain Acute, or Chronic, or Acute on Chronic? @ -Acute Uncomplicated (without systemic symptoms) or Complicated (systemic symptoms)? @ -Uncomplicated Side effects of treatment? @ -No Exacerbation, Progression, or Severe Exacerbation? @ -No Poses a threat to life or bodily function? How? (Chest pain, [place], [place], pneumonia, PE, COPD, DKA, ARF, appy, cholecystitis, CVA, Diverticulitis, Homicidal, Suicidal, threat to staff... and all critical care pts) @ -No Disposition Clinical Impression: Left hip pain Disposition: HOME SELF-CARE Condition: Good Instructions (If sedation given, give patient instructions): Hip Pain (ED) Additional Instructions: Please return to the Emergency Department if symptoms worsen or any other concerns. Prescriptions: predniSONE 50 mg PO DAILY #5 tab Is patient prescribed a controlled substance at d/c from ED?: No Referrals: Caden Villafuerte MD [Primary Care Provider] - 1-2 days Time of Disposition: 12:58
--- NOTE | 2023-11-20 12:09 | XR ---
EXAMINATION TYPE: XR Hip LT and AP Pelvis DATE OF EXAM: 11/20/2023 12:04 PM INDICATION: Patient age:Male; 53 years old; Reason for study: pain; PHH. COMPARISON: CT lumbar spine 07/10/2023 TECHNIQUE: The left hip was examined in the frontal and lateral projections and a AP pelvis. FINDINGS: No evidence of any acute osseous pathology, joint dislocation, or soft tissue swelling. No significant joint space narrowing or spurring of the hip. Post surgical fusion changes of the lumbosa cral spine with bilateral pedicle screws and rods with disc spacers. Pelvic phleboliths. IMPRESSION: 1. No acute osseous pathology. 2. Postsurgical fusion changes of the lumbosacral spine redemonstrated. [facility], , 11/20/2023 12:07 PM
== END 2023-11-20 13:35 | disposition home or self-care (01) ==
LOC: EC 11:18
CPT/HCPCS: 73502; 99283

== ENCOUNTER 2023-11-29 05:21 | Emergency (ER) | payer OTHER ==
[2023-11-29 05:26] VITALS: RESP 18
--- NOTE | 2023-11-29 05:56 | ED ---
General Adult HPI - General Chief complaint: Extremity Problem,Nontraumatic Stated complaint: Hip Pain, Congestion Time Seen by Provider: 11/29/23 05:40 Source: patient Mode of arrival: ambulatory Limitations: no limitations - History of Present Illness Initial comments: Dictation was produced using Onfan dictation software. please excuse any grammatical, word or spelling errors. Chief Complaint: 53-year-old male with cough and hip pain History of Present Illness: Patient 53-year-old male presents to the emergency department with acute on chronic left hip pain. Patient states he had x-rays that were negative. He is seeking CT imaging of his left hip. Patient also has been having symptoms of URI for the last 2 to 3 days. He states he has a history of chronic bronchitis. Denies any fever, chills or night sweats. Patient states he has a productive cough The ROS documented in this emergency department record has been reviewed and confirmed by me. Those systems with pertinent positive or negative responses have been documented in the HPI. All other systems are other negative and/or noncontributory. - Related Data Home Medications Medication Instructions Recorded Confirmed Atomoxetine HCl [Strattera] 40 mg PO DAILY 06/17/23 08/01/23 DULoxetine HCL [Cymbalta] 60 mg PO DAILY 06/17/23 08/01/23 Ibuprofen [Motrin] 800 mg PO QID PRN 06/17/23 08/01/23 traZODone HCL 300 mg PO HS 06/17/23 08/01/23 methocarbamoL 750 mg PO DAILY 08/01/23 08/01/23 methylPREDNISolone Dose Pack 4 mg PO DIRECTED 08/01/23 08/01/23 [Medrol Dose Pack] Previous Rx's Medication Instructions Recorded Aspirin 81 mg PO DAILY #30 tab 06/20/23 predniSONE 50 mg PO DAILY #5 tab 08/27/23 predniSONE 50 mg PO DAILY #5 tab 11/20/23 Azithromycin [Zithromax Z Pack] 1 tab PO DIRECTED #6 tab 11/29/23 Allergies Allergy/AdvReac Type Severity Reaction Status Date / Time sertraline [From Zoloft] AdvReac Rash/Hives Verified 11/29/23 05:26 Review of Systems ROS Statement: Those systems with pertinent positive or pertinent negative responses have been documented in the HPI. ROS Other: All systems not noted in ROS Statement are negative. Past Medical History Past Medical History: CVA/TIA, GERD/Reflux, Hyperlipidemia, Hypertension, Osteoarthritis (OA), Skin Disorder Additional Past Medical History / Comment(s): Lyme, cellulitis, hospitalization at [facility] 06/17/23-06/20/23 for TIA & neuro workup, chronic back pain, right knee pain/injury April 2023 History of Any Multi-Drug Resistant Organisms: C-DIFF Date of last positivie culture/infection: 2018 MDRO Source:: stool Past Surgical History: Back Surgery Additional Past Surgical History / Comment(s): Right leg phlebectomy. Back abscess and surgery with 6 bolts, 2 titanium cages, and 2 plastic discs in 2019. Past Anesthesia/Blood Transfusion Reactions: No Reported Reaction Past Psychological History: ADD/ADHD, Anxiety, Depression, Panic Disorder Smoking Status: Current every day smoker, Vaper General Exam - General Exam Comments Initial Comments: PHYSICAL EXAM: General Impression: Alert and oriented x3, not in acute distress HEENT: Normocephalic atraumatic, extra-ocular movements intact, pupils equal and reactive to light bilaterally, mucous membranes moist. Cardiovascular: Heart regular rate and rhythm Chest: Able to complete full sentences, no retractions, no tachypnea mild rhonchi Abdomen: abdomen soft, non-tender, non-distended, no organomegaly Musculoskeletal: Pulses present and equal in all extremities, no peripheral edema left hip pain with left lower extremity abduction Motor: no focal deficits noted Neurological: CN II-XII grossly intact, no focal motor or sensory deficits noted Skin: Intact with no visualized rashes Psych: Normal affect and mood Limitations: no limitations Course Vital Signs 11/29/23 11/29/23 11/29/23 05:24 06:03 06:10 Temperature 98.1 F Pulse Rate 114 H 104 H 112 H Respiratory 18 Rate Blood Pressure 112/81 O2 Sat by Pulse 98 Oximetry Medical Decision Making - Medical Decision Making Was pt. sent in by a medical professional or institution (, PA, TELECOMMUNICATIONS LINE MECHANIC, urgent care, hospital, or jail...) When possible be specific @ -No Did you speak to anyone other than the patient for history (EMS, parent, family, police, friend...)? What history was obtained from this source @ -No Did you review nursing and triage notes (agree or disagree)? Why? @ -I reviewed and agree with nursing and triage notes Were old charts reviewed (outside hosp., previous admission, EMS record, old EKG, old radiological studies, urgent care reports/EKG's, jail records)? Report findings @ -No old charts were reviewed Differential Diagnosis (chest pain, altered mental status, abdominal pain women, abdominal pain men, vaginal bleeding, musculoskeletal, weakness, fever, dyspnea, syncope, headache, dizziness, GI bleed, back pain, seizure, CVA, palpatations, mental health)? @ -Fracture, hip strain, bursitis, pneumonia EKG interpreted by me (3pts min.). @ -None done X-rays interpreted by me (1pt min.). @ -Chest x-ray is nonacute CT interpreted by me (1pt min.). @ -Hip shows no acute processes U/S interpreted by me (1pt. min.). @ -None done What testing was considered but not performed or refused? (CT, X-rays, U/S, labs)? Why? @ -None What meds were considered but not given or refused? Why? @ -None Was smoking cessation discussed for >3mins.? @ -No Were there social determinants of health that impacted care today? How? (Homelessness, low income, unemployed, alcoholism, drug addiction, transportation, low edu. Level, literacy, decrease access to med. care, [place] [facility], rehab)? @ -No Was there de-escalation of care discussed even if they declined (Discuss DNR or withdrawal of care, Hospice)? DNR status @ -No What co-morbidities impacted this encounter? (DM, HTN, Smoking, COPD, CAD, Cancer, CVA, ARF, Chemo, Hep., AIDS, mental health diagnosis, sleep apnea, morbid obesity)? @ -Chronic bronchitis Was patient admitted / discharged? Hospital course, mention meds given and route, prescriptions, significant lab abnormalities, going to OR and other pertinent info. @ -3-year-old male presents emergency department with 2 complaints. He has had URI type symptoms for the last couple days along with acute on chronic left hip pain. Vital signs stable. Patient has mild rhonchi on auscultation of the lungs. Imaging studies are negative. Testing negative. Patient reevaluated bedside at 7:00 AM. Patient given zpak. Did you discuss the management of the patient with other professionals (professionals i.e. , PA, TELECOMMUNICATIONS LINE MECHANIC, lab, RT, psych nurse, manager social media, power sweeper operator, teacher, senior escrow officer, case hardener)? Give summary @ -No Was critical care preformed (if so, how long)? @ -No Undiagnosed new problem with uncertain prognosis? @ -No Drug Therapy requiring intensive monitoring for toxicity (Heparin, Nitro, Insulin, Cardizem)? @ -No Were any procedures done? @ -No Diagnosis/symptom? Acute, or Chronic, or Acute on Chronic? Uncomplicated (without systemic symptoms) or Complicated (systemic symptoms)? @ -Hip strain, acute bronchitis Side effects of treatment? @ -No Exacerbation, Progression, or Severe Exacerbation? @ -No Poses a threat to life or bodily function? How? (Chest pain, [place], [place], pneumonia, PE, COPD, DKA, ARF, appy, cholecystitis, CVA, Diverticulitis, Homicidal, Suicidal, threat to staff... and all critical care pts) @ -yes - Lab Data Lab Results 11/29/23 Range/Units 06:08 Influenza Type A (PCR) Not Detected (Not Detectd) Influenza Type B (PCR) Not Detected (Not Detectd) RSV (PCR) Not Detected (Not Detectd) SARS-CoV-2 (PCR) Not Detected (Not Detectd) Disposition Clinical Impression: Acute bronchitis, Hip strain Disposition: HOME SELF-CARE Condition: Good Instructions (If sedation given, give patient instructions): Acute Bronchitis (ED), Hip Pain (ED) Prescriptions: Azithromycin [Zithromax Z Pack] 1 tab PO DIRECTED #6 tab Is patient prescribed a controlled substance at d/c from ED?: No Referrals: Caden Villafuerte MD [Primary Care Provider] - 1-2 days Time of Disposition: 06:46
[2023-11-29] MEDS: IPRATROPIUM-ALBUTEROL 3 ML NEB INHALATION STA (06:01)
[2023-11-29] MEDS: dexAMETHasone 4 MG TAB PO STA (06:02)
[2023-11-29] MEDS: KETOROLAC 15 MG/ML 1 ML VIAL IM STA (06:18)
--- NOTE | 2023-11-29 06:31 | XR ---
EXAMINATION TYPE: XR chest 2V DATE OF EXAM: 11/29/2023 COMPARISON: Chest x-ray June 17, 2023 HISTORY: Cough. TECHNIQUE: Frontal and lateral views of the chest are obtained. FINDINGS: There is no focal air space opacity, pleural effusion, or pneumothorax seen. The cardiac silhouette size is within normal limits. The osseous structures are intact. IMPRESSION: No new Acute pulmonary infiltrate. [facility], , 11/29/2023 6:29 AM
--- NOTE | 2023-11-29 06:35 | CT ---
EXAMINATION TYPE: CT hip LT wo con DATE OF EXAM: 11/29/2023 COMPARISON: Pelvic and left hip x-ray 9 days earlier HISTORY: left hip pain CT DLP: 532 mGycm Automated exposure control for dose reduction was used. FINDINGS: [id number] axial joint space loss within the left hip is redemonstrated. No acute displaced fra cture in the left hip. Muscle bulk is maintained. No groin hernia or adenopathy is seen. Femoral head shape is maintained. No free fluid in the pelvis. IMPRESSION: No acute findings are evident. [facility], , 11/29/2023 6:32 AM
[2023-11-29 07:10] VITALS: BP 115/81; PULSE 75; TEMP 97.9
== END 2023-11-29 07:10 | disposition home or self-care (01) ==
LOC: EC 05:21
CPT/HCPCS: 71046; 87636; 94640; 96372; 99284

== ENCOUNTER 2024-01-02 16:17 | Emergency (ER) | payer OTHER ==
[2024-01-02 16:24] VITALS: RESP 16
[2024-01-02] MEDS: KETOROLAC 15 MG/ML 1 ML VIAL IM STA (17:10)
[2024-01-02] MEDS: ORPHENADRINE 30 MG/ML 2 ML VIAL IM STA (17:11)
--- NOTE | 2024-01-02 18:07 | ED ---
Lower Extremity Injury HPI - General Chief Complaint: Extremity Injury, Lower Stated Complaint: L hip pain Time Seen by Provider: 01/02/24 16:37 Source: patient, RN notes reviewed Mode of arrival: ambulatory Limitations: no limitations - History of Present Illness Initial Comments: 53-year-old male presenting with left hip pain x 1 month. Denies injury or trauma. Describes a dull, achy pain in the left hip that is constant. Patient takes ibuprofen with moderate relief. Patient has been seen here in the ER multiple times for same complaint where he underwent CT of the hip last month and was told it was negative. Denies loss of bowel or bladder control. Denies numbness, weakness, tingling of the legs. Denies redness, swelling, fevers, chills. - Related Data Home Medications Medication Instructions Recorded Confirmed Atomoxetine HCl [Strattera] 40 mg PO DAILY 06/17/23 08/01/23 DULoxetine HCL [Cymbalta] 60 mg PO DAILY 06/17/23 08/01/23 Ibuprofen [Motrin] 800 mg PO QID PRN 06/17/23 08/01/23 traZODone HCL 300 mg PO HS 06/17/23 08/01/23 methocarbamoL 750 mg PO DAILY 08/01/23 08/01/23 methylPREDNISolone Dose Pack 4 mg PO DIRECTED 08/01/23 08/01/23 [Medrol Dose Pack] Previous Rx's Medication Instructions Recorded Aspirin 81 mg PO DAILY #30 tab 06/20/23 predniSONE 50 mg PO DAILY #5 tab 08/27/23 predniSONE 50 mg PO DAILY #5 tab 11/20/23 Azithromycin [Zithromax Z Pack] 1 tab PO DIRECTED #6 tab 11/29/23 Cyclobenzaprine [Flexeril] 10 mg PO TID PRN #15 tab 01/02/24 Naproxen [Naprosyn] 500 mg PO Q12H PRN #30 tablet 01/02/24 Allergies Allergy/AdvReac Type Severity Reaction Status Date / Time sertraline [From Zoloft] AdvReac Rash/Hives Verified 01/02/24 16:23 Review of Systems ROS Statement: Those systems with pertinent positive or pertinent negative responses have been documented in the HPI. ROS Other: All systems not noted in ROS Statement are negative. Past Medical History Past Medical History: CVA/TIA, GERD/Reflux, Hyperlipidemia, Hypertension, Osteoarthritis (OA), Skin Disorder Additional Past Medical History / Comment(s): Lyme, cellulitis, hospitalization at [facility] 06/17/23-06/20/23 for TIA & neuro workup, chronic back pain, right knee pain/injury April 2023 History of Any Multi-Drug Resistant Organisms: C-DIFF Date of last positivie culture/infection: 2018 MDRO Source:: stool Past Surgical History: Back Surgery Additional Past Surgical History / Comment(s): Right leg phlebectomy. Back abscess and surgery with 6 bolts, 2 titanium cages, and 2 plastic discs in 2019. Past Anesthesia/Blood Transfusion Reactions: No Reported Reaction Past Psychological History: ADD/ADHD, Anxiety, Depression, Panic Disorder Smoking Status: Current every day smoker, Vaper General Exam Limitations: no limitations General appearance: alert, in no apparent distress Head exam: Present: atraumatic, normocephalic, normal inspection Left Hip exam: Present: normal inspection, full ROM. Absent: tenderness, swelling, laceration, deformity, erythema Upper Leg exam: Present: normal inspection, full ROM. Absent: tenderness, swelling Knee exam: Present: normal inspection, full ROM. Absent: tenderness, swelling Neurovascular tendon exam: Present: no vascular compromise. Absent: pulse deficit, abnormal cap refill, sensory deficit Neurological exam: Present: alert, oriented X3 Psychiatric exam: Present: normal affect, normal mood Skin exam: Present: warm, dry, intact, normal color. Absent: rash Course Vital Signs 01/02/24 16:21 Temperature 98.0 F Pulse Rate 97 Respiratory 16 Rate Blood Pressure 134/85 O2 Sat by Pulse 99 Oximetry Medical Decision Making - Medical Decision Making Was pt. sent in by a medical professional or institution (, PA, STAYING MACHINE OPERATOR, urgent care, hospital, or prison...) When possible be specific @ -No Did you speak to anyone other than the patient for history (EMS, parent, family, police, friend...)? What history was obtained from this source @ -No Did you review nursing and triage notes (agree or disagree)? Why? @ -I reviewed and agree with nursing and triage notes Were old charts reviewed (outside hosp., previous admission, EMS record, old EKG, old radiological studies, urgent care reports/EKG's, prison records)? Report findings @ -Previous ER visits including CT scan left hip reviewed and was unremarkable Differential Diagnosis (chest pain, altered mental status, abdominal pain women, abdominal pain men, vaginal bleeding, weakness, fever, dyspnea, syncope, headache, dizziness, GI bleed, back pain, seizure, CVA, palpatations, mental health, musculoskeletal)? @ -Differential Musculoskeletal Muscular strain, contusion, ligament sprain, fracture, arthritis, septic arthritis, bursitis, cellulitis, muscle spasm, nerve compression, DVT, arterial occlusion, herpes zoster, electrolyte abnormality, tumor.... This is not meant to be in all inclusive list EKG interpreted by me (3pts min.). @ -As above X-rays interpreted by me (1pt min.). @ -None done CT interpreted by me (1pt min.). @ -None done U/S interpreted by me (1pt. min.). @ -None done What testing was considered but not performed or refused? (CT, X-rays, U/S, labs)? Why? @ -Imaging not performed due to symptoms unchanged since previous ER visits, CT left hip unremarkable What meds were considered but not given or refused? Why? @ -None Did you discuss the management of the patient with other professionals (professionals i.e. , PA, STAYING MACHINE OPERATOR, lab, RT, psych nurse, social worker masters, substance abuse prevention coordinator, teacher, senior vice president and chief information officer, medical case worker)? Give summary @ -No Was smoking cessation discussed for >3mins.? @ -No Was critical care preformed (if so, how long)? @ -No Were there social determinants of health that impacted care today? How? (Homelessness, low income, unemployed, alcoholism, drug addiction, transportation, low edu. Level, literacy, decrease access to med. care, shelter, rehab)? @ -No Was there de-escalation of care discussed even if they declined (Discuss DNR or withdrawal of care, Hospice)? DNR status @ -No What co-morbidities impacted this encounter? (DM, HTN, Smoking, COPD, CAD, Cancer, CVA, ARF, Chemo, Hep., AIDS, mental health diagnosis, sleep apnea, morbi d obesity)? @ -None Was patient admitted / discharged? Hospital course, mention meds given and route, prescriptions, significant lab abnormalities, going to OR and other pertinent info. @ -Discharge. This is a 53-year-old male presenting for left hip pain x 1 month. Denies trauma or injury. No red flag symptoms. Patient has been seen in the ER multiple times for same complaint where he underwent CT left hip which was unremarkable. No new symptoms. Neurovascularly intact. Patient is provided with analgesics and instructed to follow-up with orthopedics for further testing. Patient is agreeable to plan. Patient discharged with naproxen and Flexeril. Case was discussed with my ED attending Dr. Scanlon. Patient discharged in stable condition. Undiagnosed new problem with uncertain prognosis? @ -No Drug Therapy requiring intensive monitoring for toxicity (Heparin, Nitro, Insulin, Cardizem)? @ -No Were any procedures done? @ -No Diagnosis/symptom? @ -Left hip pain Acute, or Chronic, or Acute on Chronic? @ -Acute Uncomplicated (without systemic symptoms) or Complicated (systemic symptoms)? @ -Uncomplicated Side effects of treatment? @ -No Exacerbation, Progression, or Severe Exacerbation? @ -No Poses a threat to life or bodily function? How? (Chest pain, [place], [place], pneumonia, PE, COPD, DKA, ARF, appy, cholecystitis, CVA, Diverticulitis, Homicidal, Suicidal, threat to staff... and all critical care pts) @ -No Disposition Clinical Impression: Left hip pain Disposition: HOME SELF-CARE Condition: Stable Instructions (If sedation given, give patient instructions): Hip Pain (ED) Additional Instructions: Follow-up with orthopedics for further testing. Take naproxen and muscle relaxers as needed for pain. Please return to the Emergency Department if symptoms worsen or any other concerns. Prescriptions: Cyclobenzaprine [Flexeril] 10 mg PO TID PRN #15 tab PRN Reason: Muscle Spasm Naproxen [Naprosyn] 500 mg PO Q12H PRN #30 tablet PRN Reason: Pain Is patient prescribed a controlled substance at d/c from ED?: No Referrals: Caden Villafuerte MD [Primary Care Provider] - 1-2 days Kong Vásquez DO [Doctor of Osteopathic Medicine] - 1-2 days Time of Disposition: 18:07
[2024-01-02 18:17] VITALS: BP 130/79; PULSE 90; TEMP 98.1
== END 2024-01-02 18:17 | disposition home or self-care (01) ==
LOC: EC 16:17
DX: M25.552 Pain in left hip (principal); F17.290 Nicotine dependence, other tobacco product, uncomplicated; Z88.8 Allergy status to other drugs, medicaments and biological substances
CPT/HCPCS: 99283; 96372 ×2; J2360; J1885

== ENCOUNTER 2024-02-25 20:15 | Inpatient (IN) | payer MEDICAID, OTHER ==
--- NOTE | 2024-02-25 21:28 | ED ---
Psych HPI - General Source: patient, RN notes reviewed Mode of arrival: ambulatory <Mary Kate Bowman - Last Filed: 02/25/24 23:32> <Jonas Douglas - Last Filed: 02/26/24 00:01> - General Chief Complaint: Psychiatric Symptoms Stated Complaint: Suicidal Time Seen by Provider: 02/25/24 21:26 - History of Present Illness Initial Comments: 54-year-old male presenting to the ER for suicidal ideation. States he is planning on overdosing on heroin. Does not offer further complaints at this time. (Mary Kate Bowman) - Related Data Home Medications Medication Instructions Recorded Confirmed Atomoxetine HCl [Strattera] 40 mg PO DAILY 06/17/23 08/01/23 DULoxetine HCL [Cymbalta] 60 mg PO DAILY 06/17/23 08/01/23 Ibuprofen [Motrin] 800 mg PO QID PRN 06/17/23 08/01/23 traZODone HCL 300 mg PO HS 06/17/23 08/01/23 methocarbamoL 750 mg PO DAILY 08/01/23 08/01/23 methylPREDNISolone Dose Pack 4 mg PO DIRECTED 08/01/23 08/01/23 [Medrol Dose Pack] Previous Rx's Medication Instructions Recorded Aspirin 81 mg PO DAILY #30 tab 06/20/23 predniSONE 50 mg PO DAILY #5 tab 08/27/23 predniSONE 50 mg PO DAILY #5 tab 11/20/23 Azithromycin [Zithromax Z Pack] 1 tab PO DIRECTED #6 tab 11/29/23 Cyclobenzaprine [Flexeril] 10 mg PO TID PRN #15 tab 01/02/24 Naproxen [Naprosyn] 500 mg PO Q12H PRN #30 tablet 01/02/24 Allergies Allergy/AdvReac Type Severity Reaction Status Date / Time sertraline [From Zoloft] AdvReac Rash/Hives Verified 02/25/24 20:17 Review of Systems ROS Other: All systems not noted in ROS Statement are negative. <Mary Kate Bowman - Last Filed: 02/25/24 23:32> ROS Other: All systems not noted in ROS Statement are negative. <Jonas Douglas - Last Filed: 02/26/24 00:01> ROS Statement: Those systems with pertinent positive or pertinent negative responses have been documented in the HPI. Past Medical History Past Medical History: CVA/TIA, GERD/Reflux, Hyperlipidemia, Hypertension, Osteoarthritis (OA), Skin Disorder Additional Past Medical History / Comment(s): Lyme, cellulitis, hospitalization at [facility] 06/17/23-06/20/23 for TIA & neuro workup, chronic back pain, right knee pain/injury April 2023 History of Any Multi-Drug Resistant Organisms: C-DIFF Date of last positivie culture/infection: 2018 MDRO Source:: stool Past Surgical History: Back Surgery Additional Past Surgical History / Comment(s): Right leg phlebectomy. Back abscess and surgery with 6 bolts, 2 titanium cages, and 2 plastic discs in 2019. Past Anesthesia/Blood Transfusion Reactions: No Reported Reaction Past Psychological History: ADD/ADHD, Anxiety, Depression, Panic Disorder Smoking Status: Current every day smoker, Vaper Past Alcohol Use History: None Reported Past Drug Use History: Cocaine, Heroin <Mary Kate Bowman - Last Filed: 02/25/24 23:32> General Exam Limitations: no limitations General appearance: alert, in no apparent distress Head exam: Present: atraumatic, normocephalic, normal inspection Neurological exam: Present: alert, oriented X3 Psychiatric exam: Present: normal affect, agitated, suicidal ideation. Absent: homicidal ideation Skin exam: Present: warm, dry, intact, normal color. Absent: rash <Mary Kate Bowman - Last Filed: 02/25/24 23:32> Course Vital Signs 02/25/24 20:17 Temperature 97.4 F L Pulse Rate 115 H Respiratory 18 Rate Blood Pressure 175/90 O2 Sat by Pulse 96 Oximetry Medical Decision Making <Mary Kate Bowman - Last Filed: 02/25/24 23:32> <Jonas Douglas - Last Filed: 02/26/24 00:01> - Medical Decision Making Was pt. sent in by a medical professional or institution (, PA, OUTSIDE MACHINIST APPRENTICE, urgent care, hospital, or detention...) When possible be specific @ -No Did you speak to anyone other than the patient for history (EMS, parent, family, police, friend...)? What history was obtained from this source @ -No Did you review nursing and triage notes (agree or disagree)? Why? @ -I reviewed and agree with nursing and triage notes Were old charts reviewed (outside hosp., previous admission, EMS record, old EKG, old radiological studies, urgent care reports/EKG's, detention records)? Report findings @ -No old charts were reviewed Differential Diagnosis (chest pain, altered mental status, abdominal pain women, abdominal pain men, vaginal bleeding, weakness, fever, dyspnea, syncope, headache, dizziness, GI bleed, back pain, seizure, CVA, palpatations, mental health, musculoskeletal)? @ -Differential Mental Health Depression, anxiety, bipolar, psychosis, schizophrenia, borderline personality, situational depression, adjustment disorder, behavioral disorder, brain tumor, malingering, substance abuse, encephalopathy, medication reaction, dementia, hypothyroidism, degenerative neurologic disorder, lupus.... This is not meant to be all-inclusive list EKG interpreted by me (3pts min.). @ -None X-rays interpreted by me (1pt min.). @ -None done CT interpreted by me (1pt min.). @ -None done U/S interpreted by me (1pt. min.). @ -None done What testing was considered but not performed or refused? (CT, X-rays, U/S, labs)? Why? @ -None What meds were considered but not given or refused? Why? @ -None Did you discuss the management of the patient with other professionals (professionals i.e. , PA, OUTSIDE MACHINIST APPRENTICE, lab, RT, psych nurse, neonatal social worker, order desk caller, teacher, community services officer, senior case manager)? Give summary @ -No Was smoking cessation discussed for >3mins.? @ -No Was critical care preformed (if so, how long)? @ -No Were there social determinants of health that impacted care today? How? (Homelessness, low income, unemployed, alcoholism, drug addiction, transportation, low edu. Level, literacy, decrease access to med. care, mcc, rehab)? @ -No Was there de-escalation of care discussed even if they declined (Discuss DNR or withdrawal of care, Hospice)? DNR status @ -No What co-morbidities impacted this encounter? (DM, HTN, Smoking, COPD, CAD, Cancer, CVA, ARF, Chemo, Hep., AIDS, mental health diagnosis, sleep apnea, morbid obesity)? @ -None Was patient admitted / discharged? Hospital course, mention meds given and route, prescriptions, significant lab abnormalities, going to OR and other pertinent info. @ -This is a 54-year-old male presenting for suicidal ideation. No medical complaints at this time. Patient is cleared to be seen by EPS. Case signed out to my ED attending Dr. Douglas pending EPS evaluation. (Mary Kate Bowman) Patient care signed out to me pending EPS recommendations. Briefly, patient is 54-year-old male presents the emergency department for suicidal ideation. Does report plans to overdose on heroin. At 12 1 AM I was notified by EPS that patient be admitted to inpatient psych. Patient voluntarily admitted (Jonas Douglas) - Lab Data Lab Results 02/25/24 Range/Units 20:25 Influenza Type A (PCR) Not Detected (Not Detectd) Influenza Type B (PCR) Not Detected (Not Detectd) RSV (PCR) Not Detected (Not Detectd) SARS-CoV-2 (PCR) Not Detected (Not Detectd) Disposition <Mary Kate Bowman - Last Filed: 02/25/24 23:32> <Jonas Douglas - Last Filed: 02/26/24 00:01> Clinical Impression: Suicidal ideation Disposition: TRANSFER TO PSYCH HOSP/UNIT Referrals: Caden Villafuerte MD [Primary Care Provider] - 1-2 days
[2024-02-25 22:32] LABS: Influenza A Not Detected (Not Detectd); Influenza B Not Detected (Not Detectd); RSV Not Detected (Not Detectd)
[2024-02-26] MEDS ORDERED: traZODone HCL 50 MG TAB PO PRN (01:24)
[2024-02-26] MEDS ORDERED: haloperidoL 5 MG TAB PO PRN (01:24)
[2024-02-26] MEDS ORDERED: MAGNESIUM HYDROXIDE 2,400 MG/30 ML CUP PO PRN (01:24)
[2024-02-26] MEDS ORDERED: MAG HYDROX/AL HYDROX/SIMETH 355 ML BOTTLE PO PRN (01:24)
[2024-02-26] MEDS ORDERED: HALOPERIDOL LACTATE 5 MG/ML 1 ML VIAL IM PRN (01:24)
[2024-02-26] MEDS ORDERED: LORazepam 2 MG/ML INJ IM PRN (01:24)
[2024-02-26] MEDS: NICOTINE 14MG/24HR PATCH TRANSDERM SCH (11:10)
[2024-02-26] MEDS: ASPIRIN 81 MG PO SCH (11:10)
--- NOTE | 2024-02-26 12:12 | P.HP ---
Psychiatric H&P - . H&P Date: 02/26/24 History & Physical: Allergies Allergy/AdvReac Type Severity Reaction Status Date / Time sertraline from Zoloft AdvReac Rash/Hives Verified 02/25/24 20:17 Vital Signs Temp 98.4 F 02/26/24 03:24 Pulse 99 02/26/24 03:24 Resp 18 02/26/24 03:24 BP 101/64 02/26/24 03:24 Pulse Ox 95 02/26/24 03:24 FiO2 Intake & Output 02/25/24 02/26/24 02/26/24 18:59 06:59 18:59 Weight 81.788 kg Laboratory Last Values Influenza Type A (PCR) Not Detected (Not Detectd) 02/25/24 20:25 Influenza Type B (PCR) Not Detected (Not Detectd) 02/25/24 20:25 RSV (PCR) Not Detected (Not Detectd) 02/25/24 20:25 SARS-CoV-2 (PCR) Not Detected (Not Detectd) 02/25/24 20:25 02/26/24 12:06 IDENTIFYING DATA: Patient is a 54-year-old male, currently homeless HPI: Patient presented to the hospital yesterday complaining of depression suicidal ideations. Apparently patient was endorsing a suicidal plan to overdose on heroin. He was uncooperative in the ER, admitted psychiatrically. Patient was seen today in bed, appeared to be fairly irritable, tired unwilling to speak with card writer hand in the office. He only answered some questions briefly, was a poor historian. States that he still feeling suicidal, was fairly vague about any plan. Claims that he is feeling feeling depressed also endorsing some anxiety. Claims that he is been using crack for the past 5 days or so. Denies any alcohol use. He does claim that he is going through "withdrawals" mainly from the crack cocaine. He was shaking a bit in the room. He was fairly irritable with card writer hand during interview, poor historian. Focused on obtaining Adderall very poor insight and judgment. Patient denies any homicidal ideations intent or plan. At this time patient denies any auditory or visual hallucinations. Patient denies any flight of ideas racing thoughts and increased in goal directed behavior. Patient admits to using cocaine, denies any other recreational drugs Patient gave limited history PAST PSYCHIATRIC HISTORY: Patient did not report a significant past psychiatric history. Patient denies being on any psychiatric medications. Patient denies any previous psychiatric hospitalizations. Patient denies any psychiatric outpatient follow-up. Patient denies any history of suicide attempts in the past. Past Medical History: CVA/TIA, GERD/Reflux, Hyperlipidemia, Hypertension, Osteoarthritis (OA), Skin Disorder Additional Past Medical History / Comment(s): Lyme, cellulitis, hospitalization at [facility] 06/17/23-06/20/23 for TIA & neuro workup, chronic back pain, right knee pain/injury April 2023 History of Any Multi-Drug Resistant Organisms: C-DIFF Date of last positivie culture/infection: 2018 MDRO Source:: stool Past Surgical History: Back Surgery Additional Past Surgical History / Comment(s): Right leg phlebectomy. Back abscess and surgery with 6 bolts, 2 titanium cages, and 2 plastic discs in 2019. Past Anesthesia/Blood Transfusion Reactions: No Reported Reaction Past Psychological History: ADD/ADHD, Anxiety, Depression, Panic Disorder Smoking Status: Current every day smoker, Vaper Past Alcohol Use History: None Reported Past Drug Use History: Cocaine, Heroin ALLERGIES: as per EMR CHEMICAL DEPENDENCY HISTORY: as per HPI FAMILY PSYCHIATRIC/SUBSTANCE USE HISTORY: Unable to assess SOCIAL HISTORY: Able to assess. Apparently patient is homeless MENTAL STATUS EXAM: General Appearance: Patient appears to be shaking in the bed mildly, irritable, stated age is not directable uncooperative. Patient appears to have poor hygiene and grooming. Behavior: Patient is laying in the bed without any agitated behavior. Uncooperative. Irritable Speech: Patient's speech is fluent and nonpressured. [place] Mood/Affect: Patient reports their mood is depressed and anxious, affect is congruent and constricted. Suicidality/Homicidality: Patient denies having any homicidal ideation intent or plan. Endorses suicidal thoughts, no plan Perceptions: Patient denies any visual hallucinations and denies any auditory hallucinations Though content/process: Poverty of content, concrete. Memory and concentration: Unable to assess Judgment and insight: Poor/impulsive STRENGTHS/WEAKNESSES: strength is that patient is resilient. Weakness is that patient has poor judgment and is impulsive with history of drug use INTELLECT: Average IMPRESSIONS: Depressive disorder unspecified, rule out secondary to cocaine abuse Cocaine use disorder severe Homelessness PLAN: -Patient is admitted under voluntary status to MHU for stabilization of psychiatric symptoms and safety. Patient has signed adult voluntary form and and is placed in patient's chart. -Medications : Cymbalta 60 mg daily for mood/anxiety, Seroquel 50 mg nightly for sleep/mood stabilization. Trazodone 50 mg nightly as needed for sleep -Ativan and Haldol PRN for agitation/aggression -Patient was counselled on substance abuse and desired to cut back on use however was superficial about this -Patient was informed of the risks, benefits and side effects of the medication and patient verbally consented to taking the medications. -Internal Medicine consult to perform medical evaluation and physical. -NRT -nicotine patch -SW on board for discharge planning. Encourage patient to participate in groups to work on coping skills. 02/26/24 12:11
[2024-02-26] MEDS: QUEtiapine 50 MG TAB PO SCH (22:05)
--- NOTE | 2024-02-27 02:38 | CONS ---
CONSULTATION CHIEF COMPLAINT: Major depression and suicidal thoughts. HISTORY OF PRESENT ILLNESS: This is another admission for this 54-year-old white male came to emergency room depressed and threatening to kill himself. He was admitted. REVIEW OF SYSTEMS: At this time, he is lethargic and had to be waked up. He denied headaches, chest pain, shortness of breath, abdominal pain, etc. Past medical history, family history, personal and social histories are otherwise noncontributory and can be found in his history and physical. PHYSICAL EXAMINATION: VITAL SIGNS: Normal. HEAD, EARS, EYES, NOSE, MOUTH AND THROAT: Normal. He has multiple tattoos. CHEST: Clear. CARDIAC: Normal. ABDOMEN: Soft, nontender. EXTREMITIES: Normal. IMPRESSION: Major depression with suicidal thoughts. RECOMMENDATIONS: None at this time. Respectfully, MMODL / IJN: [id number] /
[2024-02-27] MEDS: DULoxetine HCL 60 MG CAPSULE.DR PO SCH (09:52)
--- NOTE | 2024-02-27 10:17 | P.PN ---
Progress Note - Text Progress Note Date: 02/27/24 Interval history: Patient was seen today laying in bed. He continues to state that he is feeling fairly tired. When asked about medications he states that "they are not giving me any". He believes that he is not being offered any medications at this time. He states that he is still feeling depressed, endorsing suicidal thoughts, no specific plan. Claims that he is sleeping throughout the day and also the night. Mainly keeping himself in his room. Denying any auditory or visual hallucinations. Fair appetite. MENTAL STATUS EXAM: General Appearance: Patient appears to be shaking in the bed mildly, irritable, stated age is not directable uncooperative. Patient appears to have poor hygiene and grooming. Behavior: Patient is laying in the bed without any agitated behavior. Uncooperative. Superficial Speech: Patient's speech is fluent and nonpressured. [place] Mood/Affect: Patient reports their mood is depressed and anxious, affect is congruent and constricted. Suicidality/Homicidality: Patient denies having any homicidal ideation intent or plan. Endorses suicidal thoughts, no plan Perceptions: Patient denies any visual hallucinations and denies any auditory hallucinations Though content/process: Poverty of content, concrete. Memory and concentration: Unable to assess Judgment and insight: Poor IMPRESSIONS: Depressive disorder unspecified, rule out secondary to cocaine abuse Cocaine use disorder severe Homelessness PLAN: -Patient is admitted under voluntary status to MHU for stabilization of psychiatric symptoms and safety. Patient has signed adult voluntary form and and is placed in patient's chart. -Medications : Cymbalta 60 mg daily for mood/anxiety, Seroquel 50 mg nightly for sleep/mood stabilization. Trazodone 50 mg nightly as needed for sleep. Patient is refusing medications at this time according to MAR, will encourage medications today if not we will consider involuntary hospitalization. -Ativan and Haldol PRN for agitation/aggression -NRT -nicotine patch -SW on board for discharge planning. Encourage patient to participate in groups to work on coping skills. Considering involuntary hospitalization if patient continues to refuse medications and be a threat of harm to self
[2024-02-27] MEDS: LORazepam 1 MG TAB PO PRN (18:09)
[2024-02-27] MEDS: IBUPROFEN 800 MG TAB PO PRN (18:10)
[2024-02-28] MEDS ORDERED: hydrOXYzine HCL 50 MG/ML 1 ML VIAL IM PRN (10:00)
--- NOTE | 2024-02-28 10:04 | P.PN ---
Progress Note - Text Progress Note Date: 02/28/24 Interval history: Patient was seen today laying in bed. Patient was awoken by casualty underwriter. He claims that he is still not sleeping at nighttime. He continues to be in denial about receiving medications from the nurse. We spoke more about his medications he claims that he does not want to be on Seroquel and has a bad reaction to it. He claims that he preferred to be on trazodone and he will take that. We also spoke about different antidepressants and claims that he would try it. Claims that he still feeling depressed endorsing anxiety. Continues to mainly keep to himself in his room not going to many groups. He is endorsing passive endorsing suicidal thoughts, no specific plan. Denying any auditory or visual hallucinations. Fair appetite. MENTAL STATUS EXAM: General Appearance: Patient appears to be shaking in the bed mildly, irritable, stated age is not directable uncooperative. Patient appears to have poor hygiene and grooming. Behavior: Patient is laying in the bed without any agitated behavior. Uncooperative. Superficial, some irritability Speech: Patient's speech is fluent and nonpressured. [place] Mood/Affect: Patient reports their mood is depressed and anxious, affect is congruent and constricted. Suicidality/Homicidality: Patient denies having any homicidal ideation intent or plan. Endorses suicidal thoughts, no plan Perceptions: Patient denies any visual hallucinations and denies any auditory hallucinations Though content/process: Poverty of content, concrete. Memory and concentration: Unable to assess Judgment and insight: Poor IMPRESSIONS: Depressive disorder unspecified, rule out secondary to cocaine abuse Cocaine use disorder severe Homelessness PLAN: -Patient is admitted under voluntary status to MHU for stabilization of psychiatric symptoms and safety. Patient has signed adult voluntary form and and is placed in patient's chart. -Medications : discontinue Cymbalta and replace with Lexapro 10 mg daily for mood/anxiety, discontinue Seroquel due to patient's request and replace with Trazodone 50 mg nightly as for sleep/mood. Patient is refusing medications at this time according to MAR -Ativan and Haldol PRN for agitation/aggression -NRT -nicotine patch -SW on board for discharge planning. Encourage patient to participate in groups to work on coping skills. Considering involuntary hospitalization if patient continues to refuse medications and be a threat of harm to self vs discharging patient soon. patient is refusing rehab at this time and he is homeless
[2024-02-28] MEDS: ESCITALOPRAM 10 MG TAB PO SCH (10:26)
[2024-02-28] MEDS: traZODone HCL 50 MG TAB PO SCH (21:17)
--- NOTE | 2024-02-29 11:29 | P.PN ---
Progress Note - Text Progress Note Date: 02/29/24 Interval history: Patient was seen today laying in bed. Patient was awoken by adjusto writer operator. He appears to be mildly less irritable today with adjusto writer operator less argumentative. He continues to state that he is taking his medications however did refuse the Lexapro this morning. He claims that he prefer to take it at nighttime with the trazodone. He asked to have his trazodone increased to "300 mg". He continues to have fairly poor insight, claims that he is willing to go to rehab however has not made effort to call for the intake. Claims that he is still feeling a bit depressed endorsing anxiety today. Aims that he slept a bit better last night. Has a fair appetite. Continues to mainly keep to himself in his room not going to many groups. He is endorsing passive endorsing suicidal thoughts, no specific plan. Denying any auditory or visual hallucinations. Fair appetite. MENTAL STATUS EXAM: General Appearance: Patient appears to be shaking in the bed mildly, less irritable, stated age is not directable uncooperative. Patient appears to have poor hygiene and grooming. Behavior: Patient is laying in the bed without any agitated behavior. Superficial, less irritability, somewhat manipulative Speech: Patient's speech is fluent and nonpressured. [place], improving mildly Mood/Affect: Patient reports their mood is depressed and anxious, affect is congruent and constricted. Improving mildly Suicidality/Homicidality: Patient denies having any homicidal ideation intent or plan. Endorses suicidal thoughts, no plan Perceptions: Patient denies any visual hallucinations and denies any auditory hallucinations Though content/process: Poverty of content, concrete. Memory and concentration: Alert and oriented x 3 Judgment and insight: Poor, improving mildly IMPRESSIONS: Depressive disorder unspecified, rule out secondary to cocaine abuse Cocaine use disorder severe Homelessness PLAN: -Patient is admitted under voluntary status to MHU for stabilization of psychiatric symptoms and safety. Patient has signed adult voluntary form and and is placed in patient's chart. -Medications : Change Lexapro 10 mg daily at bedtime for mood/anxiety, Trazodone 50 mg nightly as for sleep/mood. -Ativan and Haldol PRN for agitation/aggression -NRT -nicotine patch -SW on board for discharge planning. Encourage patient to participate in groups to work on coping skills. Considering involuntary hospitalization if patient continues to refuse medications and be a threat of harm to self vs discharging patient soon. patient is now claiming that he wants to go to rehab, will be calling access line today. Likely discharge Sunday versus Sunday next week
[2024-02-29] MEDS: ESCITALOPRAM 10 MG TAB PO SCH (20:32)
[2024-03-01] MEDS: hydrOXYzine pamoate 25 MG CAP PO PRN (01:41)
--- NOTE | 2024-03-01 15:07 | P.PN ---
Progress Note - Text Progress Note Date: 03/01/24 Dictation was produced using [employer] dictation software. Please excuse any grammatical, word or spelling errors. Interval history: Patient was seen in the hallway and was directable and agreeable to speak with the job specification writer in the office for psychiatric follow-up. The pt states that he is feeling tired today, reported that he slept well last night, reported that he was upset at lunch since he got some random lunch, reported that he did not order lunch yesterday, pt was encouraged to order his meals. Reported that his appetite is coming back. He states that his mood today is "fine." He reported that depression and anxiety are at the moderate side, he rated depression at 6-7 per 10 and anxiety at 89 per 10. He denied any current suicidal, self-harm or homicidal thoughts or behavior, denied any auditory or visual hallucination. Reported that he is mostly spending the time in his room and does not interact with peers in the unit. He reported that he does not attend groups and was encouraged to do so. He reported that he does not know what medication he is currently on and reported that he was on trazodone 300 mg and Cymbalta 60 mg p.o. daily. Reported that he is not going to take Lexapro and wants to be placed back on Cymbalta. He reported that he was able to speak with [facility] yesterday and reported his goal is to go there after this hospitalization. Per nursing report the patient was given number to call access. pt completed call and requested packet to be faxed to [facility]. Mental status exam: General Appearance: Patient is less irritable, stated age, directable, and partially cooperative. Patient appears to have poor hygiene and grooming. He has bilateral arm tattoos Behavior: Patient is seated without any agitated behavior. Superficial, less irritability, somewhat manipulative, argumentative and demanding Speech: Patient's speech is fluent and nonpressured. [place], improving mildly Mood/Affect: Patient reports their mood is "fine", affect is congruent and constricted. Improving mildly Suicidality/Homicidality: Patient denies having any suicidal or homicidal ideation intent or plan. Perceptions: Patient denies any visual hallucinations and denies any auditory hallucinations Though content/process: Superficially linear, demanding and argumentative at time Memory and concentration: Alert and oriented x 3 Judgment and insight: Poor, improving mildly IMPRESSIONS: Depressive disorder unspecified, rule out secondary to cocaine abuse Cocaine use disorder severe Homelessness Assessment/Plan: Continue with current diagnosis. Patient continues to meet criteria for inpatient psychiatric admission for symptom stabilization and saf ety. Patient has been refusing his Lexapro at night, reported that he was on Cymbalta and asked if he can go back on Cymbalta, we will start Lexapro 10 mg p.o. at bedtime since patient has not been compliant with it and we will start him on Cymbalta 30 mg p.o. daily. Will continue with his other medications. Monitor for medication compliance and for any psychotropic medication side effects. Will continue to monitor ongoing response to treatment. The patient was able to make a phone call to [facility] and is planning to attend inpatient rehab following this hospitalization. May consider involuntary hospitalization if patient continues to refuse medication and continue to endorse high depression and anxiety. Encouraged participation in milieu.
[2024-03-01] MEDS: DULoxetine HCL 30 MG CAPSULE.DR PO SCH (15:28)
[2024-03-02] MEDS: DULoxetine HCL 60 MG CAPSULE.DR PO SCH (08:16)
--- NOTE | 2024-03-02 12:48 | P.PN ---
Progress Note - Text Progress Note Date: 03/02/24 Dictation was produced using [employer] dictation software. Please excuse any grammatical, word or spelling errors. Interval history: Patient was seen in the hallway and was directable and agreeable to speak with the commercial underwriter in his room for psychiatric follow-up. The pt states that he is feeling better today, reported his mood to be "good." Reported that depression and anxiety are at the moderate side, he denied any current suicidal, self-harm or homicidal thoughts or behavior. Denied any current auditory or visual hallucination. Reported that his sleep was not good last night and reported usually he is on 300 mg of trazodone, admitted to good appetite. Reported that he usually isolated to his room, he was encouraged to go out of the room often and attend groups. Reported that he has been taking his medication Cymbalta and reported that he is feeling fine with the dose increase to 60 mg. He denied any side effects. He claims that he is looking forward to attend substance use rehab following this hospitalization, reported that he is planning on not using any substance again. Mental status exam: General Appearance: Patient is calm, stated age, directable, and cooperative. Patient appears to have poor hygiene and grooming. He has bilateral arm tattoos Behavior: Patient is laying in bed without any agitated behavior. Speech: Patient's speech is fluent and nonpressured. [place], improving mildly Mood/Affect: Patient reports their mood is "good", affect is congruent and constricted. Improving mildly Suicidality/Homicidality: Patient denies having any suicidal or homicidal ideation intent or plan. Perceptions: Patient denies any visual hallucinations and denies any auditory hallucinations Though content/process: Superficially linear, demanding and argumentative at time Memory and concentration: Alert and oriented x 3 Judgment and insight: Poor, improving mildly IMPRESSIONS: Depressive disorder unspecified, rule out secondary to cocaine abuse Cocaine use disorder severe Homelessness Assessment/Plan: Continue with current diagnosis. Patient continues to meet criteria for inpatient psychiatric admission for symptom stabilization and safety. We will continue with his current medication with a plan to increase Cymbalta to 60 mg p.o. daily to address depression and anxiety and trazodone 100 mg at bedtime to address insomnia. Will continue with his other medications. Monitor for medication compliance and for any psychotropic medication side effects. Will continue to monitor ongoing response to treatment. The patient was able to make a phone call to [facility] and is planning to attend inpatient rehab following this hospitalization. Encouraged participation in milieu.
[2024-03-02] MEDS: ACETAMINOPHEN TAB 325 MG TAB PO PRN (16:55)
[2024-03-02] MEDS: traZODone HCL 100 MG TAB PO SCH (22:20)
[2024-03-03 10:58] VITALS: RESP 16
--- NOTE | 2024-03-03 11:39 | P.PN ---
Progress Note - Text Progress Note Date: 03/03/24 Interval history: Patient was seen today laying in bed. Patient was awoken by leader writer. Patient was less irritable today with leader writer, claims that he does feel a bit better. Continues to mainly keep to himself in his room. He states that he did the screening with rehab and is looking forward to going to rehab. He continues to focus on his trazodone, claiming that he used to be on 300 mg. We spoke about the dangers of increasing to rapidly. He has been more compliant with his medications. Did not report any issues over the weekend, claims that he slept fairly last night, states that he is eating fairly. Not going to any groups. He is denying any suicidal thoughts, no specific plan. Denying any auditory or visual hallucinations. MENTAL STATUS EXAM: General Appearance: Patient appears to be shaking in the bed mildly, less irritable, stated age is not directable cooperative. Patient appears to have proving mildly hygiene and grooming. Behavior: Patient is laying in the bed without any agitated behavior. less irritability, somewhat manipulative Speech: Patient's speech is fluent and nonpressured. [place], improving mildly Mood/Affect: Patient reports their mood is proving mildly, affect is congruent and Improving mildly Suicidality/Homicidality: Patient denies having any homicidal ideation intent or plan. Denies any suicidal thoughts, no plan Perceptions: Patient denies any visual hallucinations and denies any auditory hallucinations Though content/process: Poverty of content, concrete. Memory and concentration: Alert and oriented x 3 Judgment and insight: Poor, improving mildly IMPRESSIONS: Depressive disorder unspecified, rule out secondary to cocaine abuse Cocaine use disorder severe Homelessness PLAN: -Patient is admitted under voluntary status to [facility]HU for stabilization of psychiatric symptoms and safety. Patient has signed adult voluntary form and and is placed in patient's chart. -Medications : Continue with Cymbalta 60 mg daily for mood/anxiety, increase trazodone 150 mg nightly as for sleep/mood. -Ativan and Haldol PRN for agitation/aggression -NRT -nicotine patch -SW on board for discharge planning. Encourage patient to participate in groups to work on coping skills. Currently awaiting intake date at rehab. Likely discharge Sunday-sunday once patient is accepted to rehab.
[2024-03-04] MEDS: traZODone HCL 50 MG TAB PO SCH (00:06)
--- NOTE | 2024-03-04 10:03 | P.PN ---
Progress Note - Text Progress Note Date: 03/04/24 Interval history: Patient was seen today laying in bed. Patient was awoken by teletypewriter installer. Patient continues to mainly keep to himself in his room. He was more appropriate and more cooperative today with teletypewriter installer. States that he feels "fine". He is denying any depression at this time, denies any anxiety. States that he is taking his medications not reporting any side effects. Claims that he is still upset that his dose of trazodone is not higher. States that he slept about 5 hours last night. he states that he is eating fairly. Not going to any groups. He is denying any suicidal thoughts, no specific plan. Denying any auditory or visual hallucinations. Continues to state that he is interested to go to rehab however is waiting for an intake date. MENTAL STATUS EXAM: General Appearance: Patient appears to be laying in bed, alert, stated age is not directable attempts to be cooperative. Patient appears to have proving mildly hygiene and grooming. Behavior: Patient is laying in the bed without any agitated behavior. somewhat manipulative Speech: Patient's speech is fluent and nonpressured. [place], improving mildly Mood/Affect: Patient reports their mood is proving mildly, affect is congruent and Improving mildly Suicidality/Homicidality: Patient denies having any homicidal ideation intent or plan. Denies any suicidal thoughts, no plan Perceptions: Patient denies any visual hallucinations and denies any auditory hallucinations Though content/process: Poverty of content, concrete. Memory and concentration: Alert and oriented x 3 Judgment and insight: Poor, improving mildly IMPRESSIONS: Depressive disorder unspecified, rule out secondary to cocaine abuse Cocaine use disorder severe Homelessness PLAN: -Patient is admitted under voluntary status to MHU for stabilization of psychiatric symptoms and safety. Patient has signed adult voluntary form and and is placed in patient's chart. -Medications : Cymbalta 60 mg daily for mood/anxiety, increase trazodone 200 mg nightly as for sleep/mood. -Ativan and Haldol PRN for agitation/aggression -NRT -nicotine patch -SW on board for discharge planning. Encourage patient to participate in groups to work on coping skills. Currently awaiting intake date at rehab. Likely discharge 1-2 days once patient is accepted to rehab.
[2024-03-04] MEDS: traZODone HCL 100 MG TAB PO SCH (23:04)
[2024-03-05 08:44] VITALS: TEMP 97.8
--- NOTE | 2024-03-05 10:29 | P.PN ---
Progress Note - Text Progress Note Date: 03/05/24 Interval history: Patient was seen today laying in bed. Patient was agreeable to speak to radio script writer at the bedside. Patient continues to mainly keep to himself in his room, not going to many groups. He was more appropriate and more cooperative today with radio script writer, rectum all during the interview. He states that he is doing "well". Denied any overnight complaints. Continues to state that he is having difficulty initiating sleep and continues to focus on getting back to his home dose of trazodone 300 mg at bedtime. He is denying any depression at this time, denies any anxiety. States that he is taking his medications not reporting any side effects. He states that he is eating fairly. He is denying any suicidal thoughts, no specific plan. Denying any auditory or visual hallucinations. MENTAL STATUS EXAM: General Appearance: Patient appears to be laying in bed, alert, stated age is not directable attempts to be cooperative. Patient appears to have proving mildly hygiene and grooming. Behavior: Patient is laying in the bed without any agitated behavior. More cooperative today Speech: Patient's speech is fluent and nonpressured. , improving mildly Mood/Affect: Patient reports their mood is proving mildly, affect is congruent and Improving mildly Suicidality/Homicidality: Patient denies having any homicidal ideation intent or plan. Denies any suicidal thoughts, no plan Perceptions: Patient denies any visual hallucinations and denies any auditory hallucinations Though content/process: Poverty of content, concrete. Appropriate Memory and concentration: Alert and oriented x 3 Judgment and insight: improving mildly IMPRESSIONS: Depressive disorder unspecified, rule out secondary to cocaine abuse Cocaine use disorder severe Homelessness PLAN: -Patient is admitted under voluntary status to MHU for stabilization of psychiatric symptoms and safety. Patient has signed adult voluntary form and and is placed in patient's chart. -Medications : Cymbalta 60 mg daily for mood/anxiety, increase trazodone 300 mg nightly as for sleep/mood. -Ativan and Haldol PRN for agitation/aggression -NRT -nicotine patch -SW on board for discharge planning. Encourage patient to participate in groups to work on coping skills. Patient is excepted to [facility], intake tomorrow. Likely discharge tomorrow directly to [facility].
[2024-03-05] MEDS: traZODone HCL 100 MG TAB PO SCH (21:06)
[2024-03-06 06:32] VITALS: BP 101/64; PULSE 105
--- NOTE | 2024-03-06 09:44 | P.DS ---
Providers Date of admission: 02/26/24 01:12 Expected date of discharge: 03/06/24 Attending physician: Johnathan Bae MD Consults: 02/26/24 01:24 Consult Physician Routine Consulting Provider: Caden Villafuerte Consult Reason/Comments: H & P Do you want consulting provider notified?: Yes, Notify in am Primary care physician: Caden Villafuerte - Discharge Diagnosis(es) (1) Depressive disorder Current Visit: Yes Status: Acute Priority: High (2) Cocaine use disorder, severe, dependence Current Visit: Yes Status: Acute Priority: High (3) Homelessness Current Visit: Yes Status: Acute Priority: Medium Hospital Course: Admission HPI: Admission note was completed by [narrative writer] "[Patient is a 54-year-old male, currently homeless. Patient presented to the hospital yesterday complaining of depression suicidal ideations. Apparently patient was endorsing a suicidal plan to overdose on heroin. He was uncooperative in the ER, admitted psychiatrically. Patient was seen today in bed, appeared to be fairly irritable, tired unwilling to speak with narrative writer in the office. He only answered some questions briefly, was a poor historian. States that he still feeling suicidal, was fairly vague about any plan. Claims that he is feeling feeling depressed also endorsing some anxiety. Claims that he is been using crack for the past 5 days or so. Denies any alcohol use. He does claim that he is going through "withdrawals" mainly from the crack cocaine. He was shaking a bit in the room. He was fairly irritable with narrative writer during interview, poor historian. Focused on obtaining Adderall very poor insight and judgment. Patient denies any homicidal ideations intent or plan. At this time patient denies any auditory or visual hallucinations. Patient denies any flight of ideas racing thoughts and increased in goal directed behavior. Patient admits to using co marti, denies any other recreational drugs]" Hospital course: Upon admission to the unit patient was directable and agreeable to commence treatment and signed adult voluntary form. Patient was mostly isolative for the first part of his hospitalization, with time and treatment he eventually got along well with other patients on the unit and followed unit protocol. Patient was compliant with the medications and denied any side effects throughout hospital course. Patient was started on Cymbalta increased to dose of 60 mg daily for mood/anxiety, trazodone increased to dose of 300 mg nightly for mood/insomnia. Patient spoke of his stressors did not engage much in group therapy or activities. Patient was also seen by medical team for history and physical exam. Throughout the course of the hospitalization patient gradually improved with regards to mood, anxiety, suicidal thoughts, sleep and returned back to their baseline level of functioning. On the day of discharge patient denied any suicidal or homicidal ideations intent or plan denied any auditory or visual hallucinations. Patient endorsed wanting to live for his sobriety and his future. The patient denied any access to guns or weapons. Patient denied any paranoia and did not endorse any delusions. Patient does have a significant history of substance abuse and was counseled on abstaining from all substances including alcohol and marijuana. Patient ended up agreeing to inpatient [facility] rehab and will be discharged there directly this morning. Patient was also counseled on the medications and need for regular compliance and was encouraged to follow-up with their outpatient appointment for mental health and also for primary care. Mental status exam: General Appearance: Patient appears to be tall, thin, several tattoos, stated age is alert, pleasant, and cooperative. Patient is in no acute distress and has improved hygiene and grooming Behavior: Patient is calmly seated without any agitated behavior. Speech: Patient's speech is fluent and nonpressured. Mood/Affect: Patient reports their mood is "good", affect is congruent and euthymic. Suicidality/Homicidality: Patient denies having any suicidal or homicidal ideation intent or plan. Perceptions: Patient denies any auditory or visual hallucinations. Though content/process: There is no evidence of any delusional thought content and thought process is linear and goal-directed. Memory and concentration: AOX3, grossly intact for the purposes of this session. Can spell "WORLD" backwards correctly. Judgment and insight: Chronically poor, however has improved with guarded prognosis Impression: Depressive disorder unspecified Cocaine use disorder severe dependence Homelessness Nicotine dependence Plan: -Continue with discharge today as patient has improved and stabilized psychiatrically and is not currently an imminent threat to themself and/or others. Patient will remain at chronically elevated risk for harm to self and/or others due to their impulsivity and substance abuse. -Continue medications: Cymbalta 60 mg daily for mood/anxiety, trazodone 300 mg nightly for mood/insomnia. -Patient was counseled on the need for medication compliance and appropriate follow-up at mental health and also primary care for medical issues. Patient verbalized understanding and agreed. -Social work to help coordinate patients discharge today directly to rehab. also to ensure safe home environment that guns/weapons are either removed from the home or locked away. Social work also to arrange for patients follow up appointments with [facility] for psychiatric care along with follow up with primary care provider. -Patient counseled on abstaining from recreational drugs and marijuana and alcohol. Was informed/educated on the adverse effects on their physical and mental health. Patient verbally agreed and understood. -Patient was instructed to return to the hospital or seek immediate medical care if their psychiatric or medical symptoms do worsen or reoccur. Allergies Allergy/AdvReac Type Severity Reaction Status Date / Time sertraline [From Zoloft] AdvReac Rash/Hives Verified 02/25/24 20:17 Laboratory Results Influenza Type A (PCR) Not Detected (Not Detectd) 02/25/24 20:25 Influenza Type B (PCR) Not Detected (Not Detectd) 02/25/24 20:25 RSV (PCR) Not Detected (Not Detectd) 02/25/24 20:25 SARS-CoV-2 (PCR) Not Detected (Not Detectd) 02/25/24 20:25 Vital Signs Temp 97.8 F 03/05/24 08:43 Pulse 105 H 03/06/24 06:31 Resp 16 03/04/24 06:28 BP 101/64 03/06/24 06:31 Pulse Ox 98 03/05/24 08:43 FiO2 Patient Condition at Discharge: Stable Plan - Discharge Summary Discharge Rx Participant: No New Discharge Prescriptions: New DULoxetine HCL [Cymbalta] 60 mg PO DAILY 30 Days #30 cap hydrOXYzine pamoate [Vistaril] 25 mg PO BID PRN 30 Days #60 cap PRN Reason: Anxiety Nicotine 14Mg/24Hr Patch [Habitrol] 1 patch TRANSDERM DAILY 14 Days #14 patch Continue Aspirin 81 mg PO DAILY 30 Days #30 tab traZODone HCL 300 mg PO HS 30 Days #30 tab Changed Ibuprofen [Motrin] 800 mg PO TID PRN 15 Days #45 tab PRN Reason: Pain Discontinued DULoxetine HCL [Cymbalta] 60 mg PO DAILY methylPREDNISolone Dose Pack [Medrol Dose Pack] 4 mg PO DIRECTED methocarbamoL 750 mg PO DAILY predniSONE 50 mg PO DAILY #5 tab Azithromycin [Zithromax Z Pack] 1 tab PO DIRECTED #6 tab Naproxen [Naprosyn] 500 mg PO Q12H PRN #30 tablet PRN Reason: Pain Atomoxetine HCl [Strattera] 40 mg PO DAILY predniSONE 50 mg PO DAILY #5 tab Cyclobenzaprine [Flexeril] 10 mg PO TID PRN #15 tab PRN Reason: Muscle Spasm Discharge Medication List Aspirin 81 mg PO DAILY 30 Days #30 tab 03/05/24 [Rx] DULoxetine HCL [Cymbalta] 60 mg PO DAILY 30 Days #30 cap 03/05/24 [Rx] Ibuprofen [Motrin] 800 mg PO TID PRN 15 Days #45 tab 03/05/24 [Rx] Nicotine 14Mg/24Hr Patch [Habitrol] 1 patch TRANSDERM DAILY 14 Days #14 patch 03/05/24 [Rx] hydrOXYzine pamoate [Vistaril] 25 mg PO BID PRN 30 Days #60 cap 03/05/24 [Rx] traZODone HCL 300 mg PO HS 30 Days #30 tab 03/05/24 [Rx] Follow up Appointment(s)/Referral(s): [facility] [Outside] - 03/06/24 2:30 pm Caden Villafuerte MD [Primary Care Provider] - 1-2 days Patient Instructions/Handouts: How to Stop Smoking (DC), Cocaine Abuse (DC), Depression (DC) Activity/Diet/Wound Care/Special Instructions: [facility] Discharge Info Avoid the use of street drugs and alcohol. Take all medications as prescribed. When you are in need of refills on your medications, please contact your outpatient medical provider and/or outpatient psychiatrist. Please go to your scheduled outpatient appointments for aftercare treatment. If symptoms return or become worse, call the crisis line at or and/or visit the nearest emergency room for assistance. National Suicide and Crisis Lifeline - call or text 988 Discharge Disposition: OTHER INSTITUTION NOT DEFINED
== END 2024-03-06 09:40 | disposition other institution (70) | DRG 751 ==
LOC: EC 20:15 → 3MHU 02-26 01:12
PROVIDERS: ADMIT Psychiatry & Neurology Psychiatry; ATTEND Psychiatry & Neurology Psychiatry
DX: F32.9 Major depressive disorder, single episode, unspecified (principal); F41.0 Panic disorder [episodic paroxysmal anxiety]; F90.9 Attention-deficit hyperactivity disorder, unspecified type; F14.23 Cocaine dependence with withdrawal; E78.5 Hyperlipidemia, unspecified; R45.1 Restlessness and agitation; M19.90 Unspecified osteoarthritis, unspecified site; K21.9 Gastro-esophageal reflux disease without esophagitis; M54.9 Dorsalgia, unspecified; F17.290 Nicotine dependence, other tobacco product, uncomplicated; G47.00 Insomnia, unspecified; G89.29 Other chronic pain; I10 Essential (primary) hypertension; R45.851 Suicidal ideations; Z59.00 Homelessness unspecified; Z79.82 Long term (current) use of aspirin; Z79.899 Other long term (current) drug therapy; Z79.52 Long term (current) use of systemic steroids; Z11.52 Encounter for screening for COVID-19; Z86.73 Personal history of transient ischemic attack (TIA), and cerebral infarction without residual deficits; Z88.8 Allergy status to other drugs, medicaments and biological substances
CPT/HCPCS: 82075; 87636; 99285

== ENCOUNTER 2024-03-13 15:08 | Emergency (ER) | payer OTHER ==
--- NOTE | 2024-03-13 16:22 | ED ---
General Adult HPI - General Source: patient, RN notes reviewed Mode of arrival: ambulatory Limitations: no limitations <Mary Kate Bowman - Last Filed: 03/13/24 20:12> <Yao Merlos - Last Filed: 03/13/24 21:01> - General Chief complaint: Back Pain/Injury Stated complaint: back pain Time Seen by Provider: 03/13/24 16:20 - History of Present Illness Initial comments: 54-year-old male sent from [place] for fecal incontinence x 1 day. States yesterday afternoon around 2 PM he began to feel a sharp pain in his back and bilateral hips and lost control of his bowels. Reports stool was loose at this time. States since the incident, he has been leaking stool. Denies injury or trauma. Denies saddle anesthesia. He is urinating normally. Denies numbness, weakness, tingling of the bilateral lower extremities. He is ambulating normally. States he has history of multiple back surgeries, last was 3 months ago. He has never had this before. Denies fever, nausea, vomiting. (Mary Kate Bowman) - Related Data Previous Rx's Medication Instructions Recorded Aspirin 81 mg PO DAILY 30 Days #30 tab 03/05/24 DULoxetine HCL [Cymbalta] 60 mg PO DAILY 30 Days #30 cap 03/05/24 Ibuprofen [Motrin] 800 mg PO TID PRN 15 Days #45 tab 03/05/24 Nicotine 14Mg/24Hr Patch [Habitrol] 1 patch TRANSDERM DAILY 14 Days 03/05/24 #14 patch hydrOXYzine pamoate [Vistaril] 25 mg PO BID PRN 30 Days #60 cap 03/05/24 traZODone HCL 300 mg PO HS 30 Days #30 tab 03/05/24 Allergies Allergy/AdvReac Type Severity Reaction Status Date / Time sertraline [From Zoloft] AdvReac Rash/Hives Verified 03/13/24 15:24 Review of Systems ROS Other: All systems not noted in ROS Statement are negative. <Mary Kate Bowman - Last Filed: 03/13/24 20:12> ROS Other: All systems not noted in ROS Statement are negative. <Yao Merlos - Last Filed: 03/13/24 21:01> ROS Statement: Those systems with pertinent positive or pertinent negative responses have been documented in the HPI. Past Medical History Past Medical History: CVA/TIA, GERD/Reflux, Hyperlipidemia, Hypertension, Osteo arthritis (OA), Skin Disorder Additional Past Medical History / Comment(s): Hx Lyme, cellulitis, hospitalization at [facility] 06/17/23-06/20/23 for TIA & neuro workup, chronic back pain, right knee pain/injury April 2023 History of Any Multi-Drug Resistant Organisms: C-DIFF Date of last positivie culture/infection: 2018 MDRO Source:: stool Past Surgical History: Back Surgery, Orthopedic Surgery Additional Past Surgical History / Comment(s): Hx Right leg phlebectomy. Back abscess and surgery with 6 bolts, 2 titanium cages, and 2 plastic discs in 2019. Past Anesthesia/Blood Transfusion Reactions: No Reported Reaction Past Psychological History: ADD/ADHD, Anxiety, Depression, Panic Disorder Smoking Status: Current every day smoker, Vaper Past Alcohol Use History: None Reported Past Drug Use History: Cocaine, Heroin, IV Drug Use, Marijuana, Methamphetamine - Past Family History Father History Unknown: Yes <Mary Kate Bowman - Last Filed: 03/13/24 20:12> General Exam Limitations: no limitations General appearance: alert, in no apparent distress Head exam: Present: atraumatic, normocephalic, normal inspection Eye exam: Present: normal appearance, PERRL, EOMI. Absent: scleral icterus, conjunctival injection, periorbital swelling GI/Abdominal exam: Present: soft, normal bowel sounds. Absent: distended, tenderness, guarding, rebound, rigid Rectal exam: Present: normal inspection, normal rectal tone, other (Lexie KHAN chaperoned rectal examination) Extremities exam: Present: normal inspection, full ROM, normal capillary refill. Absent: tenderness, pedal edema, joint swelling, calf tenderness Back exam: Present: normal inspection, full ROM, other (Full strength and range of motion of bilateral hips. No saddle anesthesia. Full sensation and DP pulses bilaterally.). Absent: tenderness, CVA tenderness (R), CVA tenderness (L), paraspinal tenderness, vertebral tenderness Neurological exam: Present: alert, oriented X3 Psychiatric exam: Present: normal affect, normal mood Skin exam: Present: warm, dry, intact, normal color. Absent: rash <Mary Kate Bowman - Last Filed: 03/13/24 20:12> Course Vital Signs 03/13/24 03/13/24 15:25 19:34 Temperature 98.6 F 97.6 F Pulse Rate 84 72 Respiratory 18 18 Rate Blood Pressure 122/75 107/64 O2 Sat by Pulse 100 97 Oximetry Medical Decision Making - Lab Data Result diagrams: 03/13/24 16:40 03/13/24 16:40 <Mary Kate Bowman - Last Filed: 03/13/24 20:12> - Lab Data Result diagrams: 03/13/24 16:40 03/13/24 16:40 <Yao Merlos - Last Filed: 03/13/24 21:01> - Medical Decision Making Was pt. sent in by a medical professional or institution (, PA, STAFF SOFTWARE ENGINEER, urgent care, hospital, or chcf...) When possible be specific @ -Sent by [employer] Did you speak to anyone other than the patient for history (EMS, parent, family, police, friend...)? What history was obtained from this source @ -No Did you review nursing and triage notes (agree or disagree)? Why? @ -I reviewed and agree with nursing and triage notes Were old charts reviewed (outside hosp., previous admission, EMS record, old EKG, old radiological studies, urgent care reports/EKG's, chcf records)? Report findings @ -No old charts were reviewed Differential Diagnosis (chest pain, altered mental status, abdominal pain women, abdominal pain men, vaginal bleeding, weakness, fever, dyspnea, syncope, headache, dizziness, GI bleed, back pain, seizure, CVA, palpatations, mental health, musculoskeletal)? @ -Differential Back Pain: Strain, zoster, cauda equina syndrome, epidural abscess, vertebral osteomyelitis, discitis, fracture, subluxation, disc herniation, DJD, spinal stenosis, dissection, AAA, pancreatitis, peptic ulcer disease, pyelonephritis, kidney stone, this is not meant to be an all-inclusive list. EKG interpreted by me (3pts min.). @ -None X-rays interpreted by me (1pt min.). @ -None done CT interpreted by me (1pt min.). @ -CT lumbar spine reveals postsurgical changes limiting evaluation to L4-L5 and L5-S1 levels, some foraminal narrowing present greatest bilaterally at L3-L4 and to a milder degree throughout the lower lumbar spine, mild disc bulging present at L1-L2 through L3-L4 U/S interpreted by me (1pt. min.). @ -None done What testing was considered but not performed or refused? (CT, X-rays, U/S, labs)? Why? @ -None What meds were considered but not given or refused? Why? @ -None Did you discuss the management of the patient with other professionals (professionals i.e. Dr., PA, STAFF SOFTWARE ENGINEER, lab, RT, psych nurse, social work program coordinator, foundry laborer coreroom, teacher, parking enforcement officer, case loader operator)? Give summary @ -I spoke with Dr. Hurt and Dr. Noble at 1815 and 1830 respectively who are both unavailable to see the patient and recommended transfer. I spoke with Karen Weiss at 1845 who did not accept transfer as they are not able to provide a stat MRI until the morning. [facility] declined transfer at 1850. [facility] declined transfer at 1900. Karen Torres requested MRI safety form at 1930 before discussing transfer and was completed and faxed at 1950. Was smoking cessation discussed for >3mins.? @ -No Was critical care preformed (if so, how long)? @ -No Were there social determinants of health that impacted care today? How? (Homelessness, low income, unemployed, alcoholism, drug addiction, tra nsportation, low edu. Level, literacy, decrease access to med. care, snf, rehab)? @ -No Was there de-escalation of care discussed even if they declined (Discuss DNR or withdrawal of care, Hospice)? DNR status @ -No What co-morbidities impacted this encounter? (DM, HTN, Smoking, COPD, CAD, Cancer, CVA, ARF, Chemo, Hep., AIDS, mental health diagnosis, sleep apnea, morbid obesity)? @ -None Was patient admitted / discharged? Hospital course, mention meds given and route, prescriptions, significant lab abnormalities, going to OR and other pertinent info. @ -This is a 54-year-old male presenting for fecal incontinence x 1 day. No known injury or trauma. Neurovascularly intact. No saddle anesthesia. Normal rectal tone. Postvoid bladder scan reveals over 500 mL and patient reports no urge to urinate. Lab work largely unremarkable. CT lumbar spine reveals postsurgical changes in some forminal narrowing at L3-L4. Patient was started on high-dose dexamethasone. Case signed out to my ED attending Dr. Merlos pending callback from [facility] inquiring about transfer. (Mary Kate Bowman) Patient reevaluated by myself, Dr. Merlos. Patient has chronic back problems, p ain has been worse for the past 1 month. Patient is concerned regarding fecal incontinence since yesterday. Patient has not noticed any difficulty or retention with urine however postvoid residual is 500 cc. On exam patient has good strength bilateral lower extremities and good sensation. Pedal pulses are intact. Patient denies any recent fever. No recent injury. Patient states he does have history of back surgery 6 years ago at [facility] with Dr. Olivares. [facility] is closed to transfer. Patient states with this surgery he did have a cage as well as disc surgery as well as abscess. Patient states they believe this was from IVDA. Patient states no IVDA in the past 6 years. Patient does present from [place] for alcohol use. Patient denies any fevers. I did speak with [facility] who did transfer me to Dr. Momo villanueva did accept transfer and patient will be transferred to [facility]. Patient was updated on need for transfer and concerns regarding his condition. Diagnosis: Lower back pain Acute Threat to neurological function (Yao Merlos) - Lab Data Lab Results 03/13/24 03/13/24 03/13/24 Range/Units 16:40 16:40 16:40 WBC 5.9 (3.8-10.6) k/uL RBC 4.32 (4.30-5.90) m/uL Hgb 13.2 (13.0-17.5) gm/dL Hct 38.0 L (39.0-53.0) % MCV 87.9 (80.0-100.0) fL MCH 30.5 (25.0-35.0) pg MCHC 34.7 (31.0-37.0) g/dL RDW 13.3 (11.5-15.5) % Plt Count 229 (150-450) k/uL MPV 7.4 Neutrophils % 62 % Lymphocytes % 27 % Monocytes % 6 % Eosinophils % 3 % Basophils % 0 % Neutrophils # 3.7 (1.3-7.7) k/uL Lymphocytes # 1.6 (1.0-4.8) k/uL Monocytes # 0.3 (0-1.0) k/uL Eosinophils # 0.2 (0-0.7) k/uL Basophils # 0.0 (0-0.2) k/uL Sodium 138 (137-145) mmol/L Potassium 4.1 (3.5-5.1) mmol/L Chloride 106 (98-107) mmol/L Carbon Dioxide 24 (22-30) mmol/L Anion Gap 8 mmol/L BUN 26 H (9-20) mg/dL Creatinine 0.79 (0.66-1.25) mg/dL Est GFR (CKD-EPI)AfAm >90 (>60 ml/min/1.73 sqM) Est GFR (CKD-EPI)NonAf >90 (>60 ml/min/1.73 sqM) Glucose 91 (74-99) mg/dL Plasma Lactic Acid Mark (0.7-2.0) mmol/L Calcium 9.7 (8.4-10.2) mg/dL Total Bilirubin 0.4 (0.2-1.3) mg/dL AST 23 (17-59) U/L ALT 18 (4-49) U/L Alkaline Phosphatase 80 (38-126) U/L Total Protein 6.7 (6.3-8.2) g/dL Albumin 4.1 (3.5-5.0) g/dL Urine Color Colorless Urine Appearance Clear (Clear) Urine pH 7.0 (5.0-8.0) Ur Specific [place] 1.006 (1.001-1.035) Urine Protein Negative (Negative) Urine Glucose (UA) Negative (Negative) Urine Ketones Negative (Negative) Urine Blood Negative (Negative) Urine Nitrite Negative (Negative) Urine Bilirubin Negative (Negative) Urine Urobilinogen <2.0 (<2.0) mg/dL Ur Leukocyte Esterase Negative (Negative) 03/13/24 Range/Units 16:40 WBC (3.8-10.6) k/uL RBC (4.30-5.90) m/uL Hgb (13.0-17.5) gm/dL Hct (39.0-53.0) % MCV (80.0-100.0) fL MCH (25.0-35.0) pg MCHC (31.0-37.0) g/dL RDW (11.5-15.5) % Plt Count (150-450) k/uL MPV Neutrophils % % Lymphocytes % % Monocytes % % Eosinophils % % Basophils % % Neutrophils # (1.3-7.7) k/uL Lymphocytes # (1.0-4.8) k/uL Monocytes # (0-1.0) k/uL Eosinophils # (0-0.7) k/uL Basophils # (0-0.2) k/uL Sodium (137-145) mmol/L Potassium (3.5-5.1) mmol/L Chloride (98-107) mmol/L Carbon Dioxide (22-30) mmol/L Anion Gap mmol/L BUN (9-20) mg/dL Creatinine (0.66-1.25) mg/dL Est GFR (CKD-EPI)AfAm (>60 ml/min/1.73 sqM) Est GFR (CKD-EPI)NonAf (>60 ml/min/1.73 sqM) Glucose (74-99) mg/dL Plasma Lactic Acid Mark <0.5 L (0.7-2.0) mmol/L Calcium (8.4-10.2) mg/dL Total Bilirubin (0.2-1.3) mg/dL AST (17-59) U/L ALT (4-49) U/L Alkaline Phosphatase (38-126) U/L Total Protein (6.3-8.2) g/dL Albumin (3.5-5.0) g/dL Urine Color Urine Appearance (Clear) Urine pH (5.0-8.0) Ur Specific [place] (1.001-1.035) Urine Protein (Negative) Urine Glucose (UA) (Negative) Urine Ketones (Negative) Urine Blood (Negative) Urine Nitrite (Negative) Urine Bilirubin (Negative) Urine Urobilinogen (<2.0) mg/dL Ur Leukocyte Esterase (Negative) Disposition <Mary Kate Bowman - Last Filed: 03/13/24 20:12> Is patient prescribed a controlled substance at d/c from ED?: No Time of Disposition: 21:01 - Out of Hospital Transfer - Req. Specs Out of Hospital Transfer - Requested Specifics: Other Emergency Center <Yao Merlos - Last Filed: 03/13/24 21:01> Clinical Impression: Low back pain Disposition: OTHER INSTITUTION NOT DEFINED Condition: Serious Referrals: Caden Villafuerte MD [Primary Care Provider] - 1-2 days
[2024-03-13 16:48] LABS: Basophils % (A) 0 %; Eosinophils # (A) 0.2 k/uL (0-0.7); Eosinophils % (A) 3 %; HGB 13.2 gm/dL (13.0-17.5); Lymphocytes # (A) 1.6 k/uL (1.0-4.8); Lymphocytes % (A) 27 %; MCH 30.5 pg (25.0-35.0); MCHC 34.7 g/dL (31.0-37.0); MCV 87.9 fL (80.0-100.0); Mean Platelet Volume 7.4; Monocytes # (A) 0.3 k/uL (0-1.0); Monocytes % (A) 6 %; Neutrophils # (A) 3.7 k/uL (1.3-7.7); Neutrophils % (A) 62 %; Platelet Count 229 k/uL (150-450); RBC 4.32 m/uL (4.30-5.90); RDW 13.3 % (11.5-15.5); WBC 5.9 k/uL (3.8-10.6)
[2024-03-13 16:58] LABS: ALT 18 U/L (4-49); AST 23 U/L (17-59); African American GFR (CKD) >90 (>60 ml/min/1.73 sqM); Albumin 4.1 g/dL (3.5-5.0); Alkaline Phosphatase 80 U/L (38-126); Anion Gap 8 mmol/L; Blood Urea Nitrogen 26 mg/dL (9-20); Calcium 9.7 mg/dL (8.4-10.2); Carbon Dioxide 24 mmol/L (22-30); Chloride 106 mmol/L (98-107); Glucose 91 mg/dL (74-99); Non-African American GFR(CKD) >90 (>60 ml/min/1.73 sqM); Potassium 4.1 mmol/L (3.5-5.1); Sodium 138 mmol/L (137-145); Total Bilirubin 0.4 mg/dL (0.2-1.3); Total Protein 6.7 g/dL (6.3-8.2)
[2024-03-13 17:02] LABS: Appearance,Urine Clear (Clear); Bilirubin,Urine Negative (Negative); Blood,Urine Negative (Negative); Color,Urine Colorless; Glucose,Urine (UA) Negative (Negative); Ketones,Urine Negative (Negative); Leukocyte Esterase,Urine Negative (Negative); Nitrite,Urine Negative (Negative); Protein,Urine Negative (Negative); Specific Gravity,Urine 1.006 (1.001-1.035); Urobilinogen,Urine <2.0 mg/dL (<2.0)
--- NOTE | 2024-03-13 17:41 | CT ---
EXAMINATION TYPE: CT lumbar spine wo con DATE OF EXAM: 03/13/2024 4:53 PM COMPARISON: None. CLINICAL INDICATION: Male, 54 years old with history of fecal incontinence, Back pain, fecal incontin ence., pain TECHNIQUE: CT of the lumbar spine is performed on a spiral scan at 3 mm thick sections. Reconstructed images are performed in the coronal and sagittal planes. Contrast used: mL of , (none if empty) Oral contrast used: (none if empty) CT DLP: 879.7 mGycm, Automated exposure control for dose reduction was used. FINDINGS: T12-L1: No focal disc herniation or significant disc bulge is evident. No spinal canal stenosis or neural foraminal stenosis is present. L1-L2: Broad-based disc bulge has mild anterior thecal sac compression. This is slightly greater in t he right paracentral region No AP spinal canal stenosis is present. L2-L3: Broad-based disc bulge has mild anterior thecal sac compression. No AP spinal canal stenosis p resent. Mild ligamentum flavum laxity is present. L3-L4: Broad-based disc bulge is present. This has mild to moderate anterior thecal sac impression. N o AP spinal canal stenosis is present. Moderate bilateral foraminal narrowing is present L4-L5: There is limitation due to pedicle screws and disc spacer. Obvious stenosis is not identified. Mild to moderate bilateral foraminal narrowing is present L5-S1: There is limitation at this level the beam hardening artifact from pedicle screws and disc spa cers. No obvious spinal canal stenosis. Moderate foraminal narrowing appears to be present bilaterall y. Vertebral alignment appears normal. No spinal canal stenosis is evident. No mass defect is identified within the cauda equina region. IMPRESSION: 1. Postsurgical changes limits evaluation to the L4-5 and L5-S1 levels. 2. Some foraminal narrowing present greatest bilaterally at L3-4 and to a milder degree through the l ower lumbar spine. 3. Mild disc bulging present at L1-2 through L3-4 without spinal canal stenosis. [facility], Workstation: [facility], 03/13/2024 5:39 PM
[2024-03-13] MEDS: DEXAMETHASONE SOD PHOSPHATE 10 MG/ML 1 ML VIAL IVP STA (19:30)
[2024-03-13] MEDS: IBUPROFEN 800 MG TAB PO STA (19:41)
[2024-03-13 22:55] VITALS: BP 128/78; PULSE 78; RESP 17; TEMP 97.8
== END 2024-03-13 23:39 | disposition other institution (70) ==
LOC: EC 15:08
DX: M54.50 Low back pain, unspecified (principal); F17.290 Nicotine dependence, other tobacco product, uncomplicated; Z88.8 Allergy status to other drugs, medicaments and biological substances
CPT/HCPCS: 36415; 80053; 83605; 85025; 81003; 72131; 99285; 51798; 96374; J1100

== ENCOUNTER 2024-03-21 10:50 | Emergency (ER) | payer OTHER ==
--- NOTE | 2024-03-21 12:14 | ED ---
URI HPI - General Chief Complaint: Upper Respiratory Infection Stated Complaint: Cough,Vomiting,SOB Time Seen by Provider: 03/21/24 12:01 Source: patient, RN notes reviewed Mode of arrival: ambulatory Limitations: no limitations - History of Present Illness Initial Comments: 54-year-old male with history of COPD presents emergency department for URI symp toms. He states over the past week 4 days he has been experiencing productive cough, rhinorrhea, congestion, chills. Over the past 2 days he has been experiencing diarrhea, nausea, vomiting. Denies emesis, hematochezia, melena. Endorses difficulty breathing when he has coughing episodes. - Related Data Previous Rx's Medication Instructions Recorded Aspirin 81 mg PO DAILY 30 Days #30 tab 03/05/24 DULoxetine HCL [Cymbalta] 60 mg PO DAILY 30 Days #30 cap 03/05/24 Ibuprofen [Motrin] 800 mg PO TID PRN 15 Days #45 tab 03/05/24 Nicotine 14Mg/24Hr Patch [Habitrol] 1 patch TRANSDERM DAILY 14 Days 03/05/24 #14 patch hydrOXYzine pamoate [Vistaril] 25 mg PO BID PRN 30 Days #60 cap 03/05/24 traZODone HCL 300 mg PO HS 30 Days #30 tab 03/05/24 Allergies Allergy/AdvReac Type Severity Reaction Status Date / Time sertraline [From Zoloft] AdvReac Rash/Hives Verified 03/21/24 11:36 Review of Systems ROS Statement: Those systems with pertinent positive or pertinent negative responses have been documented in the HPI. ROS Other: All systems not noted in ROS Statement are negative. Past Medical History Past Medical History: CVA/TIA, GERD/Reflux, Hyperlipidemia, Hypertension, Osteoarthritis (OA), Skin Disorder Additional Past Medical History / Comment(s): Hx Lyme, cellulitis, hospitalization at [facility] 06/17/23-06/20/23 for TIA & neuro workup, chronic back pain, right knee pain/injury April 2023 History of Any Multi-Drug Resistant Organisms: C-DIFF Date of last positivie culture/infection: 2018 MDRO Source:: stool Past Surgical History: Back Surgery, Orthopedic Surgery Additional Past Surgical History / Comment(s): Hx Right leg phlebectomy. Back abscess and surgery with 6 bolts, 2 titanium cages, and 2 plastic discs in 2019. Past Anesthesia/Blood Transfusion Reactions: No Reported Reaction Past Psychological History: ADD/ADHD, Anxiety, Depression, Panic Disorder Smoking Status: Current every day smoker, Vaper Past Alcohol Use History: None Reported Past Drug Use History: Cocaine, Heroin, IV Drug Use, Marijuana, Methamphetamine - Past Family History Father History Unknown: Yes General Exam Limitations: no limitations General appearance: alert, in no apparent distress Eye exam: Present: normal appearance, PERRL, EOMI. Absent: scleral icterus, conjunctival injection, periorbital swelling Neck exam: Present: normal inspection. Absent: tenderness, meningismus, lymphadenopathy Respiratory exam: Present: wheezes. Absent: normal lung sounds bilaterally, respiratory distress, rales, rhonchi, stridor Cardiovascular Exam: Present: regular rate, normal rhythm, normal heart sounds. Absent: systolic murmur, diastolic murmur, rubs, gallop, clicks GI/Abdominal exam: Present: soft, normal bowel sounds. Absent: distended, tenderness, guarding, rebound, rigid Extremities exam: Present: normal inspection, full ROM, normal capillary refill. Absent: tenderness, pedal edema, joint swelling, calf tenderness Back exam: Present: normal inspection Course Vital Signs 03/21/24 03/21/24 11:37 13:13 Temperature 97.6 F 97.7 F Pulse Rate 103 H 83 Respiratory 20 18 Rate Blood Pressure 116/75 119/79 O2 Sat by Pulse 96 99 Oximetry Medical Decision Making - Medical Decision Making Was pt. sent in by a medical professional or institution (, PA, INSPECTOR MECHANICAL, urgent care, hospital, or fdc...) When possible be specific @ -No Did you speak to anyone other than the patient for history (EMS, parent, family, police, friend...)? What history was obtained from this source @ -No Did you review nursing and triage notes (agree or disagree)? Why? @ -I reviewed and agree with nursing and triage notes Were old charts reviewed (outside hosp., previous admission, EMS record, old EKG, old radiological studies, urgent care reports/EKG's, fdc records)? Report findings @ -No old charts were reviewed Differential Diagnosis (chest pain, altered mental status, abdominal pain women, abdominal pain men, vaginal bleeding, weakness, fever, dyspnea, syncope, headache, dizziness, GI bleed, back pain, seizure, CVA, palpatations, mental health, musculoskeletal)? @ -COVID 19, RSV, influenza, pneumonia, acute bronchitis, URI, this list is not all inclusive EKG interpreted by me (3pts min.). @ -None X-rays interpreted by me (1pt min.). @ -Chest x-ray COPD and chronic changes with no acute process noted. CT interpreted by me (1pt min.). @ -None done U/S interpreted by me (1pt. min.). @ -None done What testing was considered but not performed or refused? (CT, X-rays, U/S, lab s)? Why? @ -None What meds were considered but not given or refused? Why? @ -None Did you discuss the management of the patient with other professionals (professionals i.e. , PA, INSPECTOR MECHANICAL, lab, RT, psych nurse, social insurance administrator, nail polish brush machine feeder, teacher, chief safety officer, case resolution specialist)? Give summary @ -No Was smoking cessation discussed for >3mins.? @ -No Was critical care preformed (if so, how long)? @ -No Were there social determinants of health that impacted care today? How? (Homelessness, low income, unemployed, alcoholism, drug addiction, transportation, low edu. Level, literacy, decrease access to med. care, alf, rehab)? @ -No Was there de-escalation of care discussed even if they declined (Discuss DNR or withdrawal of care, Hospice)? DNR status @ -No What co-morbidities impacted this encounter? (DM, HTN, Smoking, COPD, CAD, Cancer, CVA, ARF, Chemo, Hep., AIDS, mental health diagnosis, sleep apnea, morbid obesity)? @ -None Was patient admitted / discharged? Hospital course, mention meds given and route, prescriptions, significant lab abnormalities, going to OR and other pertinent info. @ -Discharge. 54-year-old male presenting with URI symptoms. Vitals are stable on arrival. He is noted to have mild diffuse expiratory wheezes likely secondary to COPD. Patient has tested positive for RSV. Chest x-ray is unremarkable. Supportive treatment discussed at bedside. Case discussed with Dr. Scanlon Undiagnosed new problem with uncertain prognosis? @ -No Drug Therapy requiring intensive monitoring for toxicity (Heparin, Nitro, Insulin, Cardizem)? @ -No Were any procedures done? @ -No Diagnosis/symptom? @ -RSV Acute, or Chronic, or Acute on Chronic? @ -Acute Uncomplicated (without systemic symptoms) or Complicated (systemic symptoms)? @ -Uncomplicated Side effects of treatment? @ -No Exacerbation, Progression, or Severe Exacerbation? @ -No Poses a threat to life or bodily function? How? (Chest pain, [place], [place], pneumonia, PE, COPD, DKA, ARF, appy, cholecystitis, CVA, Diverticulitis, Homicidal, Suicidal, threat to staff... and all critical care pts) @ -No - Lab Data Lab Results 03/21/24 Range/Units 11:43 Influenza Type A (PCR) Not Detected (Not Detectd) Influenza Type B (PCR) Not Detected (Not Detectd) RSV (PCR) Detected A (Not Detectd) SARS-CoV-2 (PCR) Not Detected (Not Detectd) Disposition Clinical Impression: RSV (acute bronchiolitis due to respiratory syncytial virus) Disposition: HOME SELF-CARE Condition: Good Instructions (If sedation given, give patient instructions): Respiratory Syncytial Virus (ED) Additional Instructions: Please return to the Emergency Department if symptoms worsen or any other concerns. Is patient prescribed a controlled substance at d/c from ED?: No Referrals: Caden Villafuerte MD [Primary Care Provider] - 1-2 days Time of Disposition: 12:52
[2024-03-21 12:25] LABS: Influenza A Not Detected (Not Detectd); Influenza B Not Detected (Not Detectd); RSV Detected (Not Detectd)
[2024-03-21] MEDS: ACETAMINOPHEN TAB 325 MG TAB PO STA (12:39)
[2024-03-21] MEDS: ONDANSETRON 4 MG TAB PO STA (12:40)
--- NOTE | 2024-03-21 12:48 | XR ---
EXAMINATION TYPE: XR chest 2V DATE OF EXAM: 03/21/2024 12:37 PM COMPARISON: 11/25/2023 CLINICAL INDICATION: Male, 54 years old with history of fever, productive cough, , TECHNIQUE: Frontal and lateral views FINDINGS: The cardiomediastinal silhouette, aorta, and pulmonary vasculature are within normal limits. Hyperinf lation with similar mild interstitial prominence. No brian consolidation or pleural effusion seen. IMPRESSION: COPD and chronic changes. No acute process seen. [facility], , 03/21/2024 12:45 PM
[2024-03-21 13:18] VITALS: BP 119/79; PULSE 83; RESP 18; TEMP 97.7
== END 2024-03-21 13:18 | disposition home or self-care (01) ==
LOC: EC 10:50
DX: J21.0 Acute bronchiolitis due to respiratory syncytial virus (principal); J44.9 Chronic obstructive pulmonary disease, unspecified; F17.290 Nicotine dependence, other tobacco product, uncomplicated; Z86.73 Personal history of transient ischemic attack (TIA), and cerebral infarction without residual deficits; Z88.8 Allergy status to other drugs, medicaments and biological substances
CPT/HCPCS: 71046; 87636; 99285

== ENCOUNTER 2024-08-06 10:13 | Emergency (ER) | payer OTHER ==
--- NOTE | 2024-08-06 10:42 | ED ---
Back Pain HPI - General Chief Complaint: Back Pain/Injury Stated Complaint: Back Pain Time Seen by Provider: 08/06/24 10:24 Source: patient, RN notes reviewed Limitations: no limitations - History of Present Illness Initial Comments: 54-year-old male with history of chronic back pain presents emergency room with complaints of worsening lower back pain. Patient states that he was moving a new mattress into his room yesterday when he pulled his back. Patient states that the pain radiates across his lower back. He denies loss of bladder or bowel continence, saddle anesthesias. States he has Motrin 800s at home but if not been helping to alleviate his symptoms. Extensive previous surgeries on his back. Denies fevers, chills, urinary complaints. - Related Data Previous Rx's Medication Instructions Recorded Aspirin 81 mg PO DAILY 30 Days #30 tab 03/05/24 DULoxetine HCL [Cymbalta] 60 mg PO DAILY 30 Days #30 cap 03/05/24 Ibuprofen [Motrin] 800 mg PO TID PRN 15 Days #45 tab 03/05/24 Nicotine 14Mg/24Hr Patch [Habitrol] 1 patch TRANSDERM DAILY 14 Days 03/05/24 #14 patch hydrOXYzine pamoate [Vistaril] 25 mg PO BID PRN 30 Days #60 cap 03/05/24 traZODone HCL 300 mg PO HS 30 Days #30 tab 03/05/24 Cyclobenzaprine [Flexeril] 10 mg PO TID PRN #15 tab 08/06/24 Allergies Allergy/AdvReac Type Severity Reaction Status Date / Time sertraline [From Zoloft] AdvReac Rash/Hives Verified 08/06/24 10:21 Review of Systems ROS Statement: Those systems with pertinent positive or pertinent negative responses have been documented in the HPI. ROS Other: All systems not noted in ROS Statement are negative. Past Medical History Past Medical History: CVA/TIA, GERD/Reflux, Hyperlipidemia, Hypertension, Osteoarthritis (OA), Skin Disorder Additional Past Medical History / Comment(s): Hx Lyme, cellulitis, hospitalization at [facility] 06/17/23-06/20/23 for TIA & neuro workup, chronic back pain, right knee pain/injury April 2023 History of Any Multi-Drug Resistant Organisms: C-DIFF Date of last positivie culture/infection: 2018 MDRO Source:: stool Past Surgical History: Back Surgery, Orthopedic Surgery Additional Past Surgical History / Comment(s): Hx Right leg phlebectomy. Back abscess and surgery with 6 bolts, 2 titanium cages, and 2 plastic discs in 2019. Past Anesthesia/Blood Transfusion Reactions: No Reported Reaction Past Psychological History: ADD/ADHD, Anxiety, Depression, Panic Disorder Smoking Status: Current every day smoker, Vaper Past Alcohol Use History: None Reported Past Drug Use History: None Reported, Cocaine, Heroin, IV Drug Use, Marijuana, Methamphetamine - Past Family History Father History Unknown: Yes General Exam Limitations: no limitations General appearance: alert, in no apparent distress Neck exam: Present: normal inspection. Absent: tenderness, meningismus, lymphadenopathy Respiratory exam: Present: normal lung sounds bilaterally. Absent: respiratory distress, wheezes, rales, rhonchi, stridor Cardiovascular Exam: Present: regular rate, normal rhythm, normal heart sounds. Absent: systolic murmur, diastolic murmur, rubs, gallop, clicks GI/Abdominal exam: Present: soft, normal bowel sounds. Absent: distended, tenderness, guarding, rebound, rigid Extremities exam: Present: normal inspection, full ROM, normal capillary refill. Absent: tenderness, pedal edema, joint swelling, calf tenderness Back exam: Present: tenderness. Absent: CVA tenderness (R), CVA tenderness (L) Course Vital Signs 08/06/24 08/06/24 10:18 11:28 Temperature 98.2 F 98.0 F Pulse Rate 95 84 Respiratory 17 18 Rate Blood Pressure 106/64 111/66 O2 Sat by Pulse 97 99 Oximetry Medical Decision Making - Medical Decision Making Was pt. sent in by a medical professional or institution (, PA, [employer]DER, urgent care, hospital, or [facility]...) When possible be specific @ -No Did you speak to anyone other than the patient for history (EMS, parent, family, police, friend...)? What history was obtained from this source @ -No Did you review nursing and triage notes (agree or disagree)? Why? @ -I reviewed and agree with nursing and triage notes Were old charts reviewed (outside hosp., previous admission, EMS record, old EKG, old radiological studies, urgent care reports/EKG's, [facility] records)? Report findings @ -No old charts were reviewed Differential Diagnosis (chest pain, altered mental status, abdominal pain women, abdominal pain men, vaginal bleeding, weakness, fever, dyspnea, syncope, headache, dizziness, GI bleed, back pain, seizure, CVA, palpatations, mental health, musculoskeletal)? @ -Differential Back Pain: Strain, zoster, cauda equina syndrome, epidural abscess, vertebral osteomyelitis, discitis, fracture, subluxation, disc herniation, DJD, spinal stenosis, dissection, AAA, pancreatitis, peptic ulcer disease, pyelonephritis, kidney stone, this is not meant to be an all-inclusive list. EKG interpreted by me (3pts min.). @ -None X-rays interpreted by me (1pt min.). @ -None done CT interpreted by me (1pt min.). @ -None done U/S interpreted by me (1pt. min.). @ -None done What testing was considered but not performed or refused? (CT, X-rays, U/S, labs)? Why? @ -None What meds were considered but not given or refused? Why? @ -None Did you discuss the management of the patient with other professionals (professionals i.e. , PA, DERRICK BUILDER, lab, RT, psych nurse, social work job titles, storage center manager, teacher, senior major gifts officer, residential case manager)? Give summary @ -No Was smoking cessation discussed for >3mins.? @ -No Was critical care preformed (if so, how long)? @ -No Were there social determinants of health that impacted care today? How? (Homelessness, low income, unemployed, alcoholism, drug addiction, transportation, low edu. Level, literacy, decrease access to med. care, long-term, rehab)? @ -No Was there de-escalation of care discussed even if they declined (Discuss DNR or withdrawal of care, Hospice)? DNR status @ -No What co-morbidities impacted this encounter? (DM, HTN, Smoking, COPD, CAD, Cancer, CVA, ARF, Chemo, Hep., AIDS, mental health diagnosis, sleep apnea, morbid obesity)? @ -None Was patient admitted / discharged? Hospital course, mention meds given and route, prescriptions, significant lab abnormalities, going to OR and other pertinent info. @ -Discharge. 54-year-old male presenting with complaints of lower back pain. There are no overlying skin changes. Negative straight leg test bilaterally. Pain is reproducible on range of motion and on palpation. Is provided with dose of a muscle relaxer and steroid. Outpatient reduction sent for muscle laxer. Patient stable for discharge as there are no red flag findings. Pain is improved after medications. Case discussed by attending Dr. Scanlon Undiagnosed new problem with uncertain prognosis? @ -No Drug Therapy requiring intensive monitoring for toxicity (Heparin, Nitro, Insulin, Cardizem)? @ -No Were any procedures done? @ -No Diagnosis/symptom? @ -Lumbar back strain Acute, or Chronic, or Acute on Chronic? @ -Acute on chronic Uncomplicated (without systemic symptoms) or Complicated (systemic symptoms)? @ -Uncomplicated Side effects of treatment? @ -No Exacerbation, Progression, or Severe Exacerbation? @ -No Poses a threat to life or bodily function? How? (Chest pain, [place], [place], pneumonia, PE, COPD, DKA, ARF, appy, cholecystitis, CVA, Diverticulitis, Homicidal, Suicidal, threat to staff... and all critical care pts) @ -No Disposition Clinical Impression: Back strain Disposition: HOME SELF-CARE Condition: Stable Instructions (If sedation given, give patient instructions): Low Back Strain (ED) Additional Instructions: Please return to the emergency room for any new or worsening symptoms. Prescriptions: Cyclobenzaprine [Flexeril] 10 mg PO TID PRN #15 tab PRN Reason: Muscle Spasm Is patient prescribed a controlled substance at d/c from ED?: No Referrals: Caden Villafuerte MD [Primary Care Provider] - 1-2 days Time of Disposition: 11:17
[2024-08-06] MEDS: ORPHENADRINE 30 MG/ML 2 ML VIAL IM STA (10:46)
[2024-08-06] MEDS: methylPREDNISolone SOD SUCCI 125 MG/2 ML VIAL IM ONE (10:48)
[2024-08-06] MEDS: LIDOCAINE 4% PATCH TOPICAL ONE (10:49)
[2024-08-06 11:42] VITALS: BP 111/66; PULSE 84; RESP 18; TEMP 98
== END 2024-08-06 11:28 | disposition home or self-care (01) ==
LOC: EC 10:13
DX: S39.012A Strain of muscle, fascia and tendon of lower back, initial encounter (principal); F17.290 Nicotine dependence, other tobacco product, uncomplicated; Z88.8 Allergy status to other drugs, medicaments and biological substances; X58.XXXA Exposure to other specified factors, initial encounter
CPT/HCPCS: 99283; 96372 ×2; J2360; J2919

== ENCOUNTER 2024-09-09 06:36 | Emergency (ER) | payer OTHER ==
[2024-09-09 06:40] VITALS: RESP 18; TEMP 98
--- NOTE | 2024-09-09 06:59 | ED ---
General Adult HPI - General Chief complaint: Upper Respiratory Infection Stated complaint: Cough Time Seen by Provider: 09/09/24 06:59 Source: patient, RN notes reviewed Mode of arrival: ambulatory Limitations: no limitations - History of Present Illness Initial comments: 54-year-old male presented to ER for evaluation of cough and congestion. He reports for the past week he has had a persistent cough and congestion. He reports his boss is requesting him to be tested for influenza and COVID. Patient reports a history of COPD and is currently smoking. He was seen in urgent care yesterday and was discharged on what he believes is steroid and albuterol inhaler. He has taken 2 doses of steroid. He denies any fevers, chills, nausea, vomiting, headache, dizziness, lightheadedness, abdominal pain, urinary complaints, constipation/diarrhea or peripheral edema. - Related Data Previous Rx's Medication Instructions Recorded Aspirin 81 mg PO DAILY 30 Days #30 tab 03/05/24 DULoxetine HCL [Cymbalta] 60 mg PO DAILY 30 Days #30 cap 03/05/24 Ibuprofen [Motrin] 800 mg PO TID PRN 15 Days #45 tab 03/05/24 Nicotine 14Mg/24Hr Patch [Habitrol] 1 patch TRANSDERM DAILY 14 Days 03/05/24 #14 patch hydrOXYzine pamoate [Vistaril] 25 mg PO BID PRN 30 Days #60 cap 03/05/24 traZODone HCL 300 mg PO HS 30 Days #30 tab 03/05/24 Cyclobenzaprine [Flexeril] 10 mg PO TID PRN #15 tab 08/06/24 Albuterol Inhaler [Ventolin Hfa 1 - 2 puff INHALATION Q6H PRN #1 09/09/24 Inhaler] each Azithromycin [Zithromax Z Pack] 0 tab PO DIRECTED #6 tab 09/09/24 Benzonatate [Tessalon Perles] 100 mg PO TID PRN #15 capsule 09/09/24 predniSONE 50 mg PO DAILY #5 tab 09/09/24 Allergies Allergy/AdvReac Type Severity Reaction Status Date / Time sertraline [From Zoloft] AdvReac Rash/Hives Verified 09/09/24 06:39 Review of Systems ROS Statement: Those systems with pertinent positive or pertinent negative responses have been documented in the HPI. ROS Other: All systems not noted in ROS Statement are negative. Past Medical History Past Medical History: CVA/TIA, GERD/Reflux, Hyperlipidemia, Hypertension, Osteoarthritis (OA), Skin Disorder Additional Past Medical History / Comment(s): Hx Lyme, cellulitis, hospitalization at [facility] 06/17/23-06/20/23 for TIA & neuro workup, chronic back pain, right knee pain/injury April 2023 History of Any Multi-Drug Resistant Organisms: C-DIFF Date of last positivie culture/infection: 2018 MDRO Source:: stool Past Surgical History: Back Surgery, Orthopedic Surgery Additional Past Surgical History / Comment(s): Hx Right leg phlebectomy. Back abscess and surgery with 6 bolts, 2 titanium cages, and 2 plastic discs in 2019. Past Anesthesia/Blood Transfusion Reactions: No Reported Reaction Past Psychological History: ADD/ADHD, Anxiety, Depression, Panic Disorder Smoking Status: Current every day smoker, Vaper Past Alcohol Use History: None Reported Past Drug Use History: None Reported, Cocaine, Heroin, IV Drug Use, Marijuana, Methamphetamine - Past Family History Father History Unknown: Yes General Exam Limitations: no limitations General appearance: alert, in no apparent distress ENT exam: Present: normal exam, normal oropharynx (Mild erythema. No tonsillar edema, exudates or uvular deviation.), mucous membranes moist, TM's normal bilaterally Neck exam: Present: normal inspection. Absent: tenderness, meningismus, lymphadenopathy Respiratory exam: Present: wheezes (Mild expiratory lower lung field) Cardiovascular Exam: Present: regular rate, normal rhythm, normal heart sounds. Absent: systolic murmur, diastolic murmur, rubs, gallop, clicks GI/Abdominal exam: Present: soft, normal bowel sounds. Absent: distended, tenderness, guarding, rebound, rigid Extremities exam: Present: normal inspection, full ROM, normal capillary refill. Absent: tenderness, pedal edema, joint swelling, calf tenderness Neurological exam: Present: alert, oriented X3, CN II-XII intact Skin exam: Present: warm, dry, intact, normal color. Absent: rash Course Vital Signs 09/09/24 09/09/24 09/09/24 06:38 07:02 08:47 Temperature 98 F Pulse Rate 102 H 88 Respiratory 18 18 Rate Blood Pressure 123/84 O2 Sat by Pulse 98 Oximetry 07/22/25 07/22/25 08:55 09:22 Temperature 98 F Pulse Rate 80 82 Respiratory 18 Rate Blood Pressure 120/86 O2 Sat by Pulse 98 Oximetry Medical Decision Making - Medical Decision Making Was pt. sent in by a medical professional or institution (ARIA Jones, [employer] MANAGER, urgent care, hospital, or [facility]...) When possible be specific @ -No Did you speak to anyone other than the patient for history (EMS, parent, family, police, friend...)? What history was obtained from this source @ -No Did you review nursing and triage notes (agree or disagree)? Why? @ -I reviewed and agree with nursing and triage notes Were old charts reviewed (outside hosp., previous admission, EMS record, old EKG, old radiological studies, urgent care reports/EKG's, [facility] records)? Report findings @ -No old charts were reviewed Differential Diagnosis (chest pain, altered mental status, abdominal pain women, abdominal pain men, vaginal bleeding, weakness, fever, dyspnea, syncope, headache, dizziness, GI bleed, back pain, seizure, CVA, palpatations, mental health, musculoskeletal)? @ -Pneumonia, COVID, influenza, RSV, COPD exacerbation... This list is not meant to be all-inclusive EKG interpreted by me (3pts min.). @ -None done X-rays interpreted by me (1pt min.). @ -Chest x-ray interpreted me negative for focal consolidations or pneumothorax. COPD changes. Right pulmonary nodule. CT interpreted by me (1pt min.). @ -None done U/S interpreted by me (1pt. min.). @ -None done What testing was considered but not performed or refused? (CT, X-rays, U/S, labs)? Why? @ -None What meds were considered but not given or refused? Why? @ -None Did you discuss the management of the patient with other professionals (professionals i.e. ARIA Jones, B[employer] PR[employer] MANAGER, lab, RT, psych nurse, forensic social worker, paper sealer, teacher, business development officer, case picker)? Give summary @ -No Was smoking cessation discussed for >3mins.? @ -I discussed smoking cessation for greater than 3 minutes. The risk of smoking were discussed with the patient including but not limited to risks of cancer, stroke, coronary artery disease and COPD. Also discussed with patient were multiple methods of quitting smoking. Lastly we discussed the financial cost of smoking. Was critical care preformed (if so, how long)? @ -No Were there social determinants of health that impacted care today? How? (Homelessness, low income, unemployed, alcoholism, drug addiction, transportation, low edu. Level, literacy, decrease access to med. care, half-way, rehab)? @ -No Was there de-escalation of care discussed even if they declined (Discuss DNR or withdrawal of care, Hospice)? DNR status @ -No What co-morbidities impacted this encounter? (DM, HTN, Smoking, COPD, CAD, Cancer, CVA, ARF, Chemo, Hep., AIDS, mental health diagnosis, sleep apnea, morbid obesity)? @ -COPD, smoker Was patient admitted / discharged? Hospital course, mention meds given and route, prescriptions, significant lab abnormalities, going to OR and other pertinent info. @ -Discharge. 54-year-old male presented the ER for evaluation of cough and congestion. On arrival vital signs stable patient had no signs of acute distress nontoxic-appearing. There is mild expiratory wheezing noted through lower lung zambrano on exam. Viral swab along with chest x-ray will be obtained, patient is agreeable. Viral swabs negative. Chest x-ray with COPD changes and pulmonary nodule noted. No focal consolidations. Patient provided with Tessalon Perles and DuoNeb breathing treatment in the emergency department. Upon reevaluation, patient sleeping in exam and no signs of acute distress. Patient reporting improvement of wheezing and cough after medications. Patient educated on viral swabs and chest x-ray findings including pulmonary nodule and need to follow-up closely outpatient for further evaluation of this. Patient will be treated for laryngotracheobronchitis and COPD with azithromycin. As patient is unsure if he was prescribed steroids at urgent care, prednisone prescribed along with Tessalon Perles and albuterol inhaler. Strict return parameters discussed. Advise close follow-up with PCP in the next 2 to 3 days for reevaluation. Patient verbally expressed understanding agreement care plan. Case discussed with ED attending, Dr. Shaikh. Undiagnosed new problem with uncertain prognosis? @ -No Drug Therapy requiring intensive monitoring for toxicity (Heparin, Nitro, Insulin, Cardizem)? @ -No Were any procedures done? @ -No Diagnosis/symptom? @ -Laryngeotracheobronchitis/COPD/pulmonary nodule Acute, or Chronic, or Acute on Chronic? @ -Acute Uncomplicated (without systemic symptoms) or Complicated (systemic symptoms)? @ -Uncomplicated Side effects of treatment? @ -No Exacerbation, Progression, or Severe Exacerbation? @ -No Poses a threat to life or bodily function? How? (Chest pain, [place], [place], pneumonia, PE, COPD, DKA, ARF, appy, cholecystitis, CVA, Diverticulitis, Homicidal, Suicidal, threat to staff... and all critical care pts) @ -No - Lab Data Lab Results 09/09/24 Range/Units 07:01 Influenza Type A (PCR) Not Detected (Not Detectd) Influenza Type B (PCR) Not Detected (Not Detectd) RSV (PCR) Not Detected (Not Detectd) SARS-CoV-2 (PCR) Not Detected (Not Detectd) - Radiology Data Radiology results: report reviewed, image reviewed Disposition Clinical Impression: Laryngotracheobronchitis, Pulmonary nodule, COPD (chronic obstructive pulmonary disease) Disposition: HOME SELF-CARE Condition: Stable Instructions (If sedation given, give patient instructions): COPD (Chronic Obstructive Pulmonary Disease) (ED), Pulmonary Nodules (ED) Additional Instructions: Take medications as prescribed. I recommend you follow-up closely with PCP for reevaluation and further evaluation of pulmonary nodule. I also recommend stop smoking. Return to the ER if any new or worse concerns Prescriptions: predniSONE 50 mg PO DAILY #5 tab Benzonatate [Tessalon Perles] 100 mg PO TID PRN #15 capsule PRN Reason: Cough Albuterol Inhaler [Ventolin Hfa Inhaler] 1 - 2 puff INHALATION Q6H PRN #1 each PRN Reason: Shortness Of Breath Azithromycin [Zithromax Z Pack] 0 tab PO DIRECTED #6 tab Is patient prescribed a controlled substance at d/c from ED?: No Referrals: Caden Villafuerte MD [Primary Care Provider] - 1-2 days Time of Disposition: 09:18
[2024-09-09] MEDS: BENZONATATE 100 MG CAP PO STA (07:07)
--- NOTE | 2024-09-09 07:19 | XR ---
EXAMINATION TYPE: XR chest 2V DATE OF EXAM: 09/09/2024 7:07 AM COMPARISON: 03/21/2024 CLINICAL INDICATION: Male, 54 years old with history of cough x 1 week/wheezing, , TECHNIQUE: PA and lateral views FINDINGS: Heart normal size. Aorta and pulmonary vasculature within normal limits. Streaky perihilar densities and peribronchial cuffing. Possible subtle nodular density right midlung. Otherwise, no consolidation or pleural effusion. Mild hyperinflation. IMPRESSION: 1. Correlate for underlying COPD. 2. Interstitial prominence and peribronchial cuffing could reflect a prominent component of chronic b ronchitis versus superimposed acute bronchitis. 3. Unable to exclude a right midlung pulmonary nodule. Findings may reflect summation artifact. Recom mend nonemergent follow-up CT chest to exclude a suspicious pulmonary nodule here. [facility], Workstation: [id number], 09/09/2024 7:17 AM
[2024-09-09 08:40] LABS: RSV Not Detected (Not Detectd)
[2024-09-09] MEDS: IPRATROPIUM-ALBUTEROL 3 ML NEB INHALATION STA (08:47)
[2024-09-09 09:24] VITALS: BP 120/86; PULSE 82
== END 2024-09-09 09:22 | disposition home or self-care (01) ==
LOC: EC 06:36
DX: J44.9 Chronic obstructive pulmonary disease, unspecified (principal); R91.1 Solitary pulmonary nodule; J40 Bronchitis, not specified as acute or chronic; F12.90 Cannabis use, unspecified, uncomplicated; Z88.8 Allergy status to other drugs, medicaments and biological substances
CPT/HCPCS: 71046; 87636; 94640; 99283